=== PATIENT | male | born 1970 | race Caucasian/White ===

== ENCOUNTER → 2016-08-11 | Outpatient (CLI) | payer BC, OTHER ==
[~2016-08-11] MED LIST: /VERA40TA PO; ASPI81TA83 PO; BUMEX PO; CIPR500T19 OR; CLIN300C OR; DULCOLAX PR; KLOR8TAB PO; MAGN500T2 OR; OMEP20TA7 PO; SENO8.6T5 OR; VICO5TAB OR
[2016-08-11 09:24] LABS: MEAN CORPUSCULAR HEMOGLOBIN 32.6 pg (27.0-33.0); MEAN CORPUSCULAR HGB CONC 33.4 g/dl (32.0-36.5); MEAN CORPUSCULAR VOLUME 97.7 fl (80.0-96.0); RED CELL DISTRIBUTION WIDTH 13.4 % (11.5-14.5); WHITE BLOOD COUNT 7.4 K/mm3 (4.0-10.0)
[2016-08-11 10:09] LABS: ALBUMIN 3.2 GM/DL (3.2-5.2); ALBUMIN/GLOBULIN RATIO 0.65 (1.00-1.93); ALKALINE PHOSPHATASE 86 U/L (45-117); ALT/SGPT 27 U/L (12-78); ANION GAP 6 MEQ/L (8-16); AST/SGOT 23 U/L (15-37); BILIRUBIN,TOTAL 0.5 MG/DL (0.2-1.0); BLOOD UREA NITROGEN 9 MG/DL (7-18); CALCIUM LEVEL 8.9 MG/DL (8.5-10.1); CARBON DIOXIDE LEVEL 31 MEQ/L (21-32); CHLORIDE LEVEL 105 MEQ/L (98-107); CHOLESTEROL LEVEL 195 MG/DL (<200); CREATININE FOR GFR 0.98 MG/DL (0.70-1.30); GLOMERULAR FILTRATION RATE > 60.0 (>60); GLUCOSE, FASTING 98 MG/DL (70-105); POTASSIUM SERUM 4.4 MEQ/L (3.5-5.1); SODIUM LEVEL 142 MEQ/L (136-145); TOTAL PROTEIN 8.1 GM/DL (6.4-8.2); TRIGLYCERIDES LEVEL 90 MG/DL (<150)
== END ==
LOC: M LAB 08:56
PROVIDERS: ATTEND Family Medicine
DX: I10 Essential (primary) hypertension (principal); R53.83 Other fatigue; N52.9 Male erectile dysfunction, unspecified

== ENCOUNTER → 2017-01-12 | Outpatient (CLI) | payer BC, OTHER ==
[2017-01-12 11:51] LABS: MEAN CORPUSCULAR HGB CONC 34.4 g/dl (32.0-36.5); RED CELL DISTRIBUTION WIDTH 14.3 % (11.5-14.5); WHITE BLOOD COUNT 6.5 K/mm3 (4.0-10.0)
--- NOTE | 2017-01-12 11:57 | REP ---
Clinical: Hypertension . Comparison: 02/06/2014 . Technique: PA and lateral. Findings: The mediastinum and cardiac silhouette are normal. The lung saxena are clear and without acute consolidation, effusion, or pneumothorax. The skeletal structures are intact and normal. Impression: 1. No acute cardiopulmonary process. Signed by Jorge Linn MD 01/12/2017 11:49 A
[2017-01-12 12:31] LABS: ALBUMIN 3.1 GM/DL (3.2-5.2); ALBUMIN/GLOBULIN RATIO 0.61 (1.00-1.93); ALKALINE PHOSPHATASE 82 U/L (45-117); ALT/SGPT 25 U/L (12-78); ANION GAP 7 MEQ/L (8-16); AST/SGOT 19 U/L (15-37); BILIRUBIN,TOTAL 0.3 MG/DL (0.2-1.0); BLOOD UREA NITROGEN 13 MG/DL (7-18); CALCIUM LEVEL 8.9 MG/DL (8.5-10.1); CARBON DIOXIDE LEVEL 31 MEQ/L (21-32); CHLORIDE LEVEL 105 MEQ/L (98-107); CHOLESTEROL LEVEL 185 MG/DL (<200); CREATININE FOR GFR 1.01 MG/DL (0.70-1.30); GLOMERULAR FILTRATION RATE > 60.0 (>60); GLUCOSE, FASTING 93 MG/DL (70-105); POTASSIUM SERUM 4.4 MEQ/L (3.5-5.1); SODIUM LEVEL 143 MEQ/L (136-145); TOTAL PROTEIN 8.2 GM/DL (6.4-8.2); TRIGLYCERIDES LEVEL 69 MG/DL (<150)
--- NOTE | 2017-01-12 15:11 | ECGEPIP ---
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
== END ==
LOC: M LAB 11:08
PROVIDERS: ATTEND Family Medicine
DX: R53.83 Other fatigue (principal); I10 Essential (primary) hypertension; N40.1 Benign prostatic hyperplasia with lower urinary tract symptoms

== ENCOUNTER 2018-07-29 00:01 | Emergency (ER) | payer BC, OTHER ==
[~2018-07-29] VITALS: Ht 180.3 cm; Wt 204.6 kg
[2018-07-29] MEDS ORDERED: TETRACAINE 0.5% OPHTH SOLN 4ML OD ONE (01:00)
[2018-07-29] MEDS ORDERED: TROPICAMIDE 0.5% OPHTH SOLN 15 ML OD ONE (01:00)
[2018-07-29 02:42] VITALS: BP 149/75
--- NOTE | 2018-07-29 03:07 | REPVR ---
EXAM: CT Head Without Contrast EXAM DATE/TIME: 07/29/18 (2:28am) CLINICAL HISTORY: 48 year old male with weakness. Vision issues. Prior surgery. Surgery date: 6+ months. Surgery type: Vasculitis. TECHNIQUE: Axial computed tomography images of the head without contrast. All CT scans at this facility use at least one of these dose optimization techniques: automated exposure control; mA and/or kV adjustment per patient size (includes targeted exams where dose is matched to clinical indication); or iterative reconstruction. COMPARISON: No relevant prior studies available FINDINGS: Brain: No acute hemorrhage. No cerebral edema. Moderate atrophy (out of proportion to the stated age of the patient). Possible old right cerebellar infarct (or other old insult). Ventricles: Normal. No ventriculomegaly. Bones/joints: No acute fracture. Previous right frontal craniotomy. Sinuses: No acute sinusitis. Mild bilateral sphenoid sinus membrane thickening. Mastoid air cells: Normal as visualized. No mastoid effusion. Soft tissues: Normal. IMPRESSION: No acute intracranial pathology is appreciated. Underlying atrophy. Previous right frontal craniotomy. Possible old right cerebellar infarct (or other old insult). Electronically signed by: Christina Joe On 07/29/2018 03:06:47 AM
[2018-07-29] MEDS ORDERED: NORCO, ANEXSIA 5/325MG TABLET (HYDROcodone/ACETAMINOPHEN) PO ONE (03:30)
--- NOTE | 2018-07-30 17:24 | ECGEPIP ---
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
[2018-07-30] MEDS ORDERED: BUME1TAB29 PO (19:25)
[2018-07-30] MEDS ORDERED: VERA40TA PO (19:25)
[2018-07-30] MEDS ORDERED: OMEP20TA PO (19:25)
[2018-07-30] MEDS ORDERED: POTA8TAB3 PO (19:25)
== END 2018-07-29 03:48 | disposition home or self-care (01) ==
LOC: M ED 00:01 → EDBD 00:01 → M ED 03:48
DX: R51 Headache (principal); Z79.899 Other long term (current) drug therapy

== ENCOUNTER 2018-07-30 12:39 | Inpatient (IN) | payer BC, OTHER ==
[~2018-07-30] VITALS: Ht 180.3 cm; Wt 195.6 kg
[2018-07-30 14:38] LABS: BASO % 0.3 % (0.0-1.0); EOS # 0.1 10^3/uL (0.0-0.50); HEMOGLOBIN 18.1 g/dl (13.5-17.5); LYMPH # 2.6 10^3/uL (1.5-4.5); LYMPH % 23.6 % (24.0-44.0); MEAN CORPUSCULAR HEMOGLOBIN 32.3 pg (27.0-33.0); MEAN CORPUSCULAR HGB CONC 33.5 g/dl (32.0-36.5); MEAN CORPUSCULAR VOLUME 96.3 fl (80.0-96.0); MONO # 1.1 10^3/uL (0.0-0.8); NEUTROPHILS % 64.7 % (36.0-66.0); PLATELET COUNT, AUTOMATED 266 10^3/uL (150-450); RED BLOOD COUNT 5.61 10^6/uL (4.30-6.10); WHITE BLOOD COUNT 10.8 10^3/uL (4.0-10.0)
[2018-07-30 15:05] LABS: BLOOD UREA NITROGEN 11 MG/DL (7-18); CALCIUM LEVEL 9.4 MG/DL (8.5-10.1); CARBON DIOXIDE LEVEL 30 MEQ/L (21-32); CHLORIDE LEVEL 101 MEQ/L (98-107); CK-MB VALUE MASS < 1.0 NG/ML (<3.6); CPK CREATINE PHOSPHOKINASE 46 U/L (39-308); CREATININE FOR GFR 1.04 MG/DL (0.70-1.30); GLOMERULAR FILTRATION RATE > 60.0 (>60); GLUCOSE, FASTING 95 MG/DL (70-100); MB/CK RELATIVE INDEX 2.17 (< OR =4); POTASSIUM SERUM 4.3 MEQ/L (3.5-5.1); SODIUM LEVEL 138 MEQ/L (136-145); TROPONIN I < 0.02 NG/ML (< 0.10)
--- NOTE | 2018-07-30 17:56 | ECGEPIP ---
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
--- NOTE | 2018-07-30 18:27 | REP ---
MRA Brain without contrast History: Infarction 3-D [id number] MR angiography was performed at the level of the [place]. There is no aneurysm or arteriovenous malformation. There is loss of the normal hyperintense signal in the proximal P1 segment of the left posterior cerebral artery. This is consistent with severe stenosis or occlusion. Mild atherosclerotic disease involves the right middle cerebral artery trifurcation, right posterior cerebral artery and the distal left vertebral artery. Remaining major intracranial vessels are patent. The right vertebral artery is dominant. Impression: 1. There is no aneurysm or arteriovenous malformation. 2. Atherosclerotic disease as described above. There is loss of the normal hyperintense signal in the P1 segment of the left posterior cerebral artery consistent with severe stenosis or occlusion. Electronically Signed by Lemuel Juarez MD 07/30/2018 06:17 P
--- NOTE | 2018-07-30 18:43 | REP ---
MR BRAIN WITHOUT CONTRAST: HISTORY: Infarction. COMPARISON: CT 07/29/2018 Increased signal intensity on diffusion and T2-weighted images is present in the inferomedial left temporal lobe, left occipital and posteromedial left parietal lobe. Increased signal intensity on diffusion and T2-weighted images is present in the left thalamus. These areas are decreased in signal intensity on ADC images and are consistent with acute infarctions. There is no hemorrhage. There is mass effect with partial effacement of the posterior body, atrium and occipital horn of the left lateral ventricle. There is no midline shift. An area of increased signal intensity on T2-weighted images is present in the inferior right cerebellum. There is dilatation of the overlying cortical sulci. This represents an old infarction. Areas of increased signal intensity on T2-weighted images are present in the basal ganglia and left cerebellum. These represent old lacunar infarctions. Areas of increased signal intensity on T2-weighted images are present in the periventricular and subcortical white matter. This represents small vessel ischemic disease. There is no hydrocephalus or extracerebral collection. Mucosal thickening is present in the left maxillary sinus. IMPRESSION: 1. Acute infarction in the distribution of the left posterior cerebral artery. There is no hemorrhage or midline shift. 2. Old right cerebellar infarction. 3. Old left basal ganglia and left cerebellar lacunar infarctions. 4. Small vessel ischemic disease. Electronically Signed by Lemuel Juarez MD 07/30/2018 06:49 P
[2018-07-30] MEDS ORDERED: CLOPIDOGREL 75 MG TAB PO ONE (19:15)
[2018-07-30] MEDS ORDERED: VERA40TA PO (19:25)
[2018-07-30] MEDS ORDERED: BUME1TAB29 PO (19:25)
[2018-07-30] MEDS ORDERED: OMEP20TA PO (19:25)
[2018-07-30] MEDS ORDERED: POTA8TAB3 PO (19:25)
[2018-07-30] MEDS ORDERED: ACETAMINOPHEN TAB 650MG DOSE (2X325MG) PO PRN (19:45)
[2018-07-30] MEDS ORDERED: ONDANSETRON 4MG/2ML VIAL (J2405) IV PRN (19:45)
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
[2018-07-30 22:00] VITALS: BP 140/92
[2018-07-30] MEDS: VERAPAMIL 40 MG TAB PO SCH (22:19)
[2018-07-30] MEDS: POTASSIUM CHLORIDE 10 MEQ SR TABLET PO SCH (22:20)
[2018-07-31] VITALS: BP 127/86
[2018-07-31 04:00] VITALS: BP 111/78
[2018-07-31 05:29] LABS: HEMATOCRIT 48.5 % (42.0-52.0); HEMOGLOBIN 16.6 g/dl (13.5-17.5); MEAN CORPUSCULAR HEMOGLOBIN 31.7 pg (27.0-33.0); MEAN CORPUSCULAR HGB CONC 34.2 g/dl (32.0-36.5); MEAN CORPUSCULAR VOLUME 92.7 fl (80.0-96.0); PLATELET COUNT, AUTOMATED 250 10^3/uL (150-450); RED BLOOD COUNT 5.23 10^6/uL (4.30-6.10); WHITE BLOOD COUNT 10.4 10^3/uL (4.0-10.0)
[2018-07-31 07:23] LABS: BLOOD UREA NITROGEN 12 MG/DL (7-18); CALCIUM LEVEL 9.2 MG/DL (8.5-10.1); CARBON DIOXIDE LEVEL 25 MEQ/L (21-32); CHLORIDE LEVEL 100 MEQ/L (98-107); CHOLESTEROL LEVEL 169 MG/DL (<200); CHOLESTEROL RISK RATIO 4.447 (<5); CREATININE FOR GFR 0.98 MG/DL (0.70-1.30); GLOMERULAR FILTRATION RATE > 60.0 (>60); GLUCOSE, FASTING 93 MG/DL (70-100); HDL CHOLESTEROL 38 MG/DL (>40); LDL CHOLESTEROL 111 MG/DL (<100); NON-HDL-C 131 MG/DL; POTASSIUM SERUM 4.3 MEQ/L (3.5-5.1); SODIUM LEVEL 136 MEQ/L (136-145); TRIGLYCERIDES LEVEL 100 MG/DL (<150)
--- NOTE | 2018-07-31 07:46 | REP ---
Clinical: Transient ischemic attack . Technique: Brown scale and color Doppler evaluation using linear high frequency transducer Findings: Two-dimensional brown scale and color images demonstrate normal arterial lumen with laminar flow and no appreciable narrowing. Color Doppler interrogation demonstrates normal arterial wave patterns and velocities with no significant spectral broadening. Normal flow direction is appreciated in the left vertebral artery while the right vertebral artery is not visualized. RIGHT (cm/s) LEFT (cm/s) ICA peak systolic velocity 75.7 56.2 ICA diastolic velocity 27.1 19.6 ECA peak systolic velocity 80.6 67.6 CCA peak systolic velocity 60.8 92.0 ICA/CCA ratio 1.2 0.6 Impression: 1. No hemodynamically significant areas of narrowing or stenosis appreciated. Based on set standards narrowing falls within the less than 50% range. 2. Right vertebral artery not visualized. Electronically Signed by Jorge Linn MD 07/31/2018 07:38 A
[2018-07-31 08:00] VITALS: BP 180/62
[2018-07-31] MEDS ORDERED: ISOVUE-370 76% 100ML VIAL (Q9967) As Ordered ONE (08:05)
[2018-07-31 08:42] LABS: INR 1.08; PROTHROMBIN TIME 14.1 SECONDS (12.1-14.4)
[2018-07-31 08:43] LABS: PARTIAL THROMBOPLASTIN TIME 30.7 SECONDS (25.4-37.6)
[2018-07-31 08:56] LABS: ALBUMIN 2.9 GM/DL (3.2-5.2); ALT/SGPT 21 U/L (12-78); BILIRUBIN,DIRECT 0.2 MG/DL (0.0-0.2); TOTAL PROTEIN 7.9 GM/DL (6.4-8.2)
--- NOTE | 2018-07-31 09:17 | IPNPDOC ---
Date Seen The patient was seen on 07/31/18. Progress Note SUBJECTIVE: Patient is a 48-year-old male who was seen and examined this morning. Patient was a little bit short of breath just came back from a CTA head and neck. He states that he is feeling relatively well except he does continue to have the vision loss in his lateral aspect of his right eye the medial aspect of his left eye. He is very tearful during my exam for he states it is only in the hospital. He has no other complaints at this time. Would just like to be updated and all his medical problems. Denies any chest pain shortness of breath nausea vomiting diarrhea. States his sensory loss in his right side has improved present. OBJECTIVE PHYSICAL EXAMINATION: VITAL SIGNS: Please see below. GENERAL: Morbidly obese middle aged man, lying calmly in bed, not in any apparent distress. He is not pale, anicteric and afebrile HEENT: Atraumatic. Very poor dentition, LUNGS: Clear to auscultation bilaterally. CARDIOVASCULAR: S1 and 2 heard, tachycardic rhythm. Telemetry reads atrial fl utter with a heart rate 120s. ABDOMEN: Morbidly Obese, soft, not tender, not distended. Bowel sounds normoactive. EXTREMITIES: No pedal edema, 2+ bilateral pedal pulses noted. Chronic venous stasis changes bilaterally NEUROLOGICAL: Awake, alert, oriented 3. Visual field defect: Left eye loss in the nasal side and right eye vision loss on the temporal side. Left pupil round and reactive to light appropriately. Right pupil reacts to light but briskly dilates. No observable motor deficiency. PSYCHIATRIC: Normal affect LABORATORY DATA, IMAGING STUDIES, MICROBIOLOGY: Please see below. Echocardiogram: Pending DVT prophylaxis ordered?: Yes teds and sequentials ASSESSMENT AND PLAN: Patient is a 48-year-old man, morbid obesity with medical history of hypertension, reflux disease, transient ischemic attack, cerebellar infarct and questionable brain biopsy for vasculitis presented with visual problems for 3 days and was admitted for Acute infarction in the distribution of the left posterior cerebral artery. PROBLEMS: 1. Acute infarction in the distribution of the left posterior cerebral artery -CT of the brain without contrast negative for acute intracranial pathology -MRI: Acute infarction in the distribution of the left posterior cerebral artery and 3 old infarcts in the right and left cerebellar and left basal ganglia. -MRA of the brain without contrast: Severe stenosis of the left posterior cerebral artery at the P1 segment -Neurology consulted -Echocardiogram completed report pending -CT angios head and neck currently pending for vascular ultrasound could not visualize the right vertebral artery -CV risk 8.1% - start Lipitor 40 mg -Restarted antiplatelets: Plavix 75 mg. 2. A Flutter -new onset? -Echocardiogram completed report pending -Discontinue verapamil and start metoprolol 25 mg every 6 hours.. -Currently not on any anticoagulation therapy because of acute stroke -On telemetry -atrial flutter versus sinus tachycardia? -Cardiology consulted appreciate recommendations to manage patient's underlying arrhythmia and anticoagulation therapy -[id number] - 4 points. Hypertension, stroke and vascular disease. Recommendation is to be placed on anticoagulation. 3. Hypertension -BS stopped his verapamil and started him on metoprolol 25 mg we'll continue to monitor -hold Bumex 2 mg as well as potassium chloride 4. Prediabetes A1c 6.0 Currently not on any oral hypoglycemic medication Because of the patient's history of hypertension, abnormal lipids, strokes obesity he is at high risk for metabolic syndrome. He would benefit from a oral hypoglycemic such as metformin 500 mg to prevent advancement of his diabetes. We'll also encourage healthy eating with control and increased physical activity as well. 4. Acid reflux -c/w Protonix 5. Speech therapy -Cleared for normal diet 6. Obesity -BMI 37.8 -Complicated care 7. PT Consulted 8. DVT prophylaxis Teds and sequentials, peak 9. CODE STATUS: Full code Disposition awaiting recommendation per neurology and cardiology about restarting anticoagulation therapy,as well as PT clearance VS, I&O, 24H, Fishbone Vital Signs/I&O Vital Signs Date Time Temp Pulse Resp B/P (MAP) Pulse Ox O2 Delivery O2 Flow Rate FiO2 07/31/18 04:00 97.8 107 20 111/78 (89) 94 Room Air I&O- Last 24 Hours up to 6 AM 07/31/18 06:00 Intake Total 0 ml Output Total 0 ml Balance 0 ml Laboratory Data 24H LABS Laboratory Tests 2 07/30/18 14:30: Immature Granulocyte % (Auto) 0.4, White Blood Count 10.8H, Red Blood Count 5.61, Hemoglobin 18.1H, Hematocrit 54.0H, Mean Corpuscular Volume 96.3H, Mean Corpuscular Hemoglobin 32.3, Mean Corpuscular Hemoglobin Concent 33.5, Red Cell Distribution Width 14.7H, Platelet Count 266, Neutrophils (%) (Auto) 64.7, Lymphocytes (%) (Auto) 23.6L, Monocytes (%) (Auto) 10.0H, Eosinophils (%) (Auto) 1.0, Basophils (%) (Auto) 0.3, Neutrophils # (Auto) 7.0, Lymphocytes # (Auto) 2.6, Monocytes # (Auto) 1.1H, Eosinophils # (Auto) 0.1, Basophils # (Auto) 0.0, Nucleated Red Blood Cells % (auto) 0.0, Anion Gap 7L, Glomerular Filtration Rate > 60.0, Blood Urea Nitrogen 11, Creatinine 1.04, Sodium Level 138, Potassium Level 4.3, Chloride Level 101, Carbon Dioxide Level 30, Calcium Level 9.4, Total Creatine Kinase 46, Creatine Kinase MB < 1.0, Creatine Kinase MB Relative Index 2.17, Troponin I < 0.02 07/31/18 05:18: Nucleated Red Blood Cells % (auto) 0.0, Estimated Mean Plasma Glucose 126H, Hemoglobin A1c 6.0 07/31/18 06:39: Anion Gap 11, Glomerular Filtration Rate > 60.0, Calcium Level 9.2, Triglycerides Level 100, LDL Cholesterol 111H, Total Cholesterol 169, Non-HDL Cholesterol (LDL + VLDL) 131, Total HDL Cholesterol 38L, Cholesterol/HDL Ratio 4.447 CBC/BMP Laboratory Tests 07/30/18 14:30 Red Blood Count 5.61, Mean Corpuscular Volume 96.3 H, Mean Corpuscular Hemoglobin 32.3, Mean Corpuscular Hemoglobin Concent 33.5, Red Cell Distribution Width 14.7 H, Neutrophils (%) (Auto) 64.7, Lymphocytes (%) (Auto) 23.6 L, Monocytes (%) (Auto) 10.0 H, Eosinophils (%) (Auto) 1.0, Basophils (%) (Auto) 0.3, Neutrophils # (Auto) 7.0, Lymphocytes # (Auto) 2.6, Monocytes # (Auto) 1.1 H, Eosinophils # (Auto) 0.1, Basophils # (Auto) 0.0, Calcium Level 9.4, Total C reatine Kinase 46 07/31/18 05:18 Red Blood Count 5.23, Mean Corpuscular Volume 92.7, Mean Corpuscular Hemoglobin 31.7, Mean Corpuscular Hemoglobin Concent 34.2, Red Cell Distribution Width 14.7 H 07/31/18 06:39 GME ATTESTATION GME ATTESTATION My faculty preceptor for this patient encounter was physically present during the encounter and was fully available. All aspects of the patient interview, examination, medical decision making process, and medical care plan development were reviewed and approved by the faculty preceptor. The faculty preceptor is aware and concurs with the plan as stated in the body of this note and will attest to such by his/her cosignature. RODRIGUEZ OLVERA DO Jul 31, 2018 09:17 MIGUEL PARDO MD Aug 17, 2018 14:00
--- NOTE | 2018-07-31 09:33 | NUR ---
Pt swallow function appears wnl w/o s/sx aspiration or penetration. Recommend regular solids and thin liquids. Please f/u w/ WATCH SUPERVISOR w/ any concerns. Addendum: 07/31/18 at 0935 by JEANETH BRINK [facility] Amended: Links added.
[2018-07-31] MEDS: VERAPAMIL 40 MG TAB PO SCH (09:57)
[2018-07-31] MEDS: PANTOPRAZOLE 40MG TAB (PROTONIX) PO SCH (10:03)
[2018-07-31] MEDS: POTASSIUM CHLORIDE 10 MEQ SR TABLET PO SCH (10:04)
[2018-07-31] MEDS: CLOPIDOGREL 75 MG TAB PO SCH (10:04)
--- NOTE | 2018-07-31 10:26 | REP ---
CT ANGIO HEAD: HISTORY: Infarction. CONTRAST: Isovue 370, 75 mL. COMPARISON: MRA 07/30/2018 There is no aneurysm or arteriovenous malformation. There is occlusion of the distal P1 segment of the left posterior cerebral artery. Calcified atherosclerotic plaque is present in the cavernous right internal carotid artery. There is no significant stenosis. Mild atherosclerotic disease involves the right middle cerebral artery trifurcation and distal left vertebral artery. Atherosclerotic disease involving the right posterior cerebral artery seen in the MRA examination is not seen in the present examination. The remaining intracranial vessels are patent. IMPRESSION: 1. There is no aneurysm or arteriovenous malformation. 2. There is occlusion of the distal P1 segment of the left posterior cerebral artery. 3. Other areas of atherosclerotic disease as described above are better seen on MRA performed 07/30/2018. Electronically Signed by Lemuel Juarez MD 07/31/2018 10:28 A
[2018-07-31] MEDS: METOPROLOL TART 25 MG TABLET PO SCH ×2 (10:47→17:26)
--- NOTE | 2018-07-31 11:28 | REP ---
Chest two views HISTORY: Shortness of breath Comparison: 04/24/2018 The lungs are clear. The heart is normal in size. The pulmonary vasculature is normal in appearance. The bony structure is intact. IMPRESSION: No acute disease. Electronically Signed by Lemuel Juarez MD 07/31/2018 11:19 A
[2018-07-31 12:00] VITALS: BP 138/64
[2018-07-31] MEDS: ATORVASTATIN 20 MG TAB PO SCH (12:45)
--- NOTE | 2018-07-31 13:28 | ECHO ---
DATE OF STUDY: 07/31/2018 REFERRING PHYSICIAN: Jael Ruano MD INDICATION: Acute stroke. HEIGHT: 180 cm. WEIGHT: 205 kg. 2D MEASUREMENTS: Aortic root: 3.2 cm Left atrium: 3.9 cm Ventricular septum: 1.29 cm Posterior wall: 1.21 cm Left ventricle diastole: 5.8 cm Aortic anulus: 2.2 cm Left atrial volume index: 25 Inferior vena cava: 1.4 cm DOPPLER MEASUREMENTS: Aortic valve velocity: 88.4 cm/s LVOT velocity: 82.7 cm/s LVOT VTI: 15.5 cm Mitral E velocity: 130 cm/s Mitral E deceleration time: 141 ms MITRAL ANNULAR TISSUE DOPPLER: E prime septal: 9.4 cm/s E prime lateral: 10.5 cm/s DESCRIPTION: Rhythm was typical atrial flutter, mostly 2:1 AV conduction, mildly rapid ventricular response. This was a moderately technically difficult echocardiogram. No pericardial effusion. This was a 2D, M-mode, color flow Doppler, and pulse wave Doppler examination and included mitral annular tissue Doppler. CONCLUSIONS: 1. Mild eccentric left ventricle hypertrophy. Normal regional left ventricle (LV) wall motion and wall thickening. Normal LV systolic function. Left ventricular ejection fraction (LVEF) 60% by visual estimate. Unable to determine LV diastolic function in the setting of atrial flutter. 2. Normal right ventricle size. Mild right ventricle hypertrophy. Normal right ventricle (RV) systolic function. Normal right atrial size. 3. Unable to assess pulmonary free systolic pressure or estimated RV systolic pressure on this study. 4. Structurally normal-appearing cardiac valves without observable regurgitation by color-flow Doppler. 5. Moderately technically difficult echocardiogram.
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
[2018-07-31 16:00] VITALS: BP 120/62
--- NOTE | 2018-07-31 17:57 | REP ---
CT ANGIO NECK: HISTORY: Infarction. CONTRAST: Isovue-370, 75 mL The distal common carotid arteries and origins of the external and internal carotid arteries are normal. There are no carotid atherosclerotic lesions. The vertebral arteries are equal in size. Mild atherosclerotic disease involves the distal left vertebral artery in the inferior posterior fossa. The origins of the great vessels are normal. IMPRESSION: 1. There is no carotid stenosis. 2. Mild atherosclerotic disease involves the distal left vertebral artery and the inferior posterior fossa. Electronically Signed by Lemuel Juarez MD 08/01/2018 08:35 A
[2018-07-31 20:00] VITALS: BP 127/90
[2018-07-31] MEDS ORDERED: NYSTATIN 100,000 UNITS/GM TOPICAL PWD 15 GM TOP PRN (21:00)
[2018-08-01] VITALS (8 sets, daily range): BP systolic 118–158; BP diastolic 70–88
[2018-08-01] MEDS: METOPROLOL TART 25 MG TABLET PO SCH ×4 (00:42→21:32)
[2018-08-01] MEDS ORDERED: LEVALBUTEROL 1.25 MG/0.5 ML CONCENTRATE NEB NEB ONE (05:15)
[2018-08-01] MEDS ORDERED: METOPROLOL TART 25 MG TABLET PO ONE (08:45)
--- NOTE | 2018-08-01 08:50 | IPNPDOC ---
Date Seen The patient was seen on 08/01/18. Progress Note SUBJECTIVE: Patient is a 48-year-old male who was seen and examined this morning. Cardiology saw the patient last night patient was in a flutter recomme nds continue metoprolol and starting the patient on anticoagulation and stopping antiplatelet therapy. Since the patient has been here he is only eaten breakfast the day before. His refused to eat lunch and dinner and breakfast this morning. Will try to encourage him to have a meal. Reviewed plan for the day. Very sad affect for the patient does not want to the hospital. He denies any shortness of breath trouble breathing palpitations nausea vomiting diarrhea. He has no other complaints today. Vision loss has not improved. OBJECTIVE PHYSICAL EXAMINATION: VITAL SIGNS: Please see below. GENERAL: Morbidly obese middle aged man, lying calmly in bed, not in any apparent distress. He is not pale, anicteric and afebrile HEENT: Atraumatic. Very poor dentition, LUNGS: Clear to auscultation bilaterally. CARDIOVASCULAR: S1 and 2 heard, tachycardic rhythm. Telemetry reads atrial flutter with a heart rate 120s. ABDOMEN: Morbidly Obese, soft, not tender, not distended. Bowel sounds normoactive. EXTREMITIES: No pedal edema, 2+ bilateral pedal pulses noted. Chronic venous stasis changes bilaterally NEUROLOGICAL: Awake, alert, oriented 3. Visual field defect: Left eye loss in the nasal side and right eye vision loss on the temporal side. Left pupil round and reactive to light appropriately. Right pupil reacts to light a little but briskly dilates again. No observable motor deficiency. PSYCHIATRIC: Depressed affect LABORATORY DATA, IMAGING STUDIES, MICROBIOLOGY: Please see below. Echocardiogram: CONCLUSIONS: Rhythm was typical atrial flutter, mostly 2:1 AV conduction, mildly rapid ventricular response. 1. Mild eccentric left ventricle hypertrophy. Normal regional left ventricle (LV) wall motion and wall thickening. Normal LV systolic function. Left ventricular ejection fraction (LVEF) 60% by visual estimate. Unable to determine LV diastolic function in the setting of atrial flutter. 2. Normal right ventricle size. Mild right ventricle hypertrophy. Normal right ventricle (RV) systolic function. Normal right atrial size. 3. Unable to assess pulmonary free systolic pressure or estimated RV systolic pressure on this study. 4. Structurally normal-appearing cardiac valves without observable regurgitation by color-flow Doppler. 5. Moderately technically difficult echocardiogram. DVT prophylaxis ordered?: Yes teds and sequentials ASSESSMENT AND PLAN: Patient is a 48-year-old man, morbid obesity with medical history of hypertension, reflux disease, transient ischemic attack, cerebellar infarct and questionable brain biopsy for vasculitis presented with visual problems for 3 days and was admitted for Acute infarction in the distribution of the left posterior cerebral artery. PROBLEMS: 1. Acute infarction in the distribution of the left posterior cerebral artery -CT of the brain without contrast negative for acute intracranial pathology -MRI: Acute infarction in the distribution of the left posterior cerebral artery and 3 old infarcts in the right and left cerebellar and left basal ganglia. -MRA of the brain without contrast: Severe stenosis of the left posterior cerebral artery at the P1 segment -Neurology consulted -Echocardiogram completed report pending -CT angios head and neck currently pending for vascular ultrasound could not visualize the right vertebral artery -CV risk 8.1% - start Lipitor 40 mg -Stopped Plavix started Eliquis 2.5 mg 2. A Flutter -new onset? Duration unknown -Echocardiogram :atrial flutter, mostly 2:1 AV conduction, mildly rapid ventricular response. see above for conclusions -increase metoprolol 50 mg mg every 8 hours.. -Currently not on any anticoagulation therapy because of acute stroke -On telemetry -atrial flutter versus sinus tachycardia? -Cardiology consulted appreciate recommendations to manage patient's underlying arrhythmia and anticoagulation therapy- Eliquis orders or alto he cannot afford those, then warfarin INR of 2-3.0 -[id number] - 4 points. Hypertension, stroke and vascular disease. Recommendation is to be placed on anticoagulation. -Stopped Plavix started Eliquis 2.5 mg twice a day x1 repeat CT head in the morning if no rebleeds will continue with Eliquis 5 mg twice a day 3. Hypertension -metoprolol 50 mg we'll continue to monitor -hold Bumex 2 mg as well as potassium chloride - possibly can be discontinued upon discharge will need to monitor 4. Prediabetes A1c 6.0 Currently not on any oral hypoglycemic medication Because of the patient's history of hypertension, abnormal lipids, strokes obesity he is at high risk for metabolic syndrome. He would benefit from a oral hypoglycemic such as metformin 500 mg to prevent advancement of his diabetes. We'll also encourage healthy eating with control and increased physical activity as well. 4. Acid reflux -c/w Protonix 5. Speech therapy -Cleared for normal diet 6. Obesity -BMI 37.8 -Complicated care -[facility] protocol 7. PT Consulted 8. DVT prophylaxis Teds and sequentials, peak 9. CODE STATUS: Full code 10. Tobacco abuse -History of 1 pack a day for many years unable to quantify -Offer nicotine patch but refused -Discussed the risk of smoking and advised the need to quit smoking 11. PFS -Consult placed for prior authorization for Eliquis 5 mg twice a day Disposition: Stopped Plavix started Eliquis 2.5 mg twice a day x1 repeat CT head in the morning if no rebleeds will continue with Eliquis 5 mg twice a day, increase metoprolol 50 mg mg every 8 hours per neurology recommendations. VS, I&O, 24H, Fishbone Vital Signs/I&O Vital Signs Date Time Temp Pulse Resp B/P (MAP) Pulse Ox O2 Delivery O2 Flow Rate FiO2 08/01/18 05:41 112 158/84 08/01/18 04:30 97.3 20 98 Room Air I&O- Last 24 Hours up to 6 AM 08/01/18 06:00 Intake Total 600 ml Output Total 1575 ml Balance -975 ml Laboratory Data Microbiology Microbiology 07/31/18 Respiratory Virus Panel (PCR) ([facility]) - Final, Complete GME ATTESTATION GME ATTESTATION My faculty preceptor for this patient encounter was physically present during the encounter and was fully available. All aspects of the patient interview, examination, medical decision making process, and medical care plan development were reviewed and approved by the faculty preceptor. The faculty preceptor is aware and concurs with the plan as stated in the body of this note and will attest to such by his/her cosignature. RODRIGUEZ OLVERA DO Aug 01, 2018 08:50 MIGUEL PARDO MD Aug 17, 2018 14:02
[2018-08-01] MEDS: CLOPIDOGREL 75 MG TAB PO SCH (09:33)
[2018-08-01] MEDS: ATORVASTATIN 20 MG TAB PO SCH (09:33)
[2018-08-01] MEDS: PANTOPRAZOLE 40MG TAB (PROTONIX) PO SCH (09:33)
[2018-08-01] MEDS ORDERED: ELIQ5TAB PO (10:36)
[2018-08-01 10:58] LABS: VITAMIN B12 LEVEL > 2000 PG/ML (232-1245)
[2018-08-01] MEDS: APIXABAN 2.5 MG TAB (ELIQUIS) PO SCH ×2 (11:48→21:32)
[2018-08-02 04:00] VITALS: BP 135/88
[2018-08-02] MEDS: METOPROLOL TART 25 MG TABLET PO SCH (05:42)
--- NOTE | 2018-08-02 07:08 | IPNPDOC ---
Date Seen The patient was seen on 08/02/18. Progress Note SUBJECTIVE: Patient is a 48-year-old male who was seen and examined this morning. Patient was di OBJECTIVE PHYSICAL EXAMINATION: VITAL SIGNS: Please see below. GENERAL: Morbidly obese middle aged man, lying calmly in bed, not in any apparen t distress. He is not pale, anicteric and afebrile HEENT: Atraumatic. Very poor dentition, LUNGS: Clear to auscultation bilaterally. CARDIOVASCULAR: S1 and 2 heard, tachycardic rhythm. Telemetry reads atrial flutter with a heart rate 120s. ABDOMEN: Morbidly Obese, soft, not tender, not distended. Bowel sounds normoactive. EXTREMITIES: No pedal edema, 2+ bilateral pedal pulses noted. Chronic venous stasis changes bilaterally NEUROLOGICAL: Awake, alert, oriented 3. Unclear sensory loss pattern, visual field defect: Left eye loss in the nasal side and right eye vision loss on the temporal side. Left pupil round and reactive to light appropriately. Right pupil reacts to light a little but briskly dilates again. No observable motor defi ciency. PSYCHIATRIC: Depressed affect LABORATORY DATA, IMAGING STUDIES, MICROBIOLOGY: Please see below. Echocardiogram: CONCLUSIONS: Rhythm was typical atrial flutter, mostly 2:1 AV conduction, mildly rapid ventricular response. 1. Mild eccentric left ventricle hypertrophy. Normal regional left ventricle (LV) wall motion and wall thickening. Normal LV systolic function. Left ventricular ejection fraction (LVEF) 60% by visual estimate. Unable to dete rmine LV diastolic function in the setting of atrial flutter. 2. Normal right ventricle size. Mild right ventricle hypertrophy. Normal right ventricle (RV) systolic function. Normal right atrial size. 3. Unable to assess pulmonary free systolic pressure or estimated RV systolic pressure on this study. 4. Structurally normal-appearing cardiac valves without observable re gurgitation by color-flow Doppler. 5. Moderately technically difficult echocardiogram. DVT prophylaxis ordered?: Yes teds and sequentials ASSESSMENT AND PLAN: Patient is a 48-year-old man, morbid obesity with medical history of hypertension, reflux disease, transient ischemic attack, cerebellar infarct and questionable brain biopsy for vasculitis presented with visual problems for 3 days and was admitted for Acute infarction in the distribution of the left posterior cerebral artery. 1. Acute infarction in the distribution of the left posterior cerebral artery -CT of the brain without contrast negative for acute intracranial pathology -MRI: Acute infarction in the distribution of the left posterior cerebral artery and 3 old infarcts in the right and left cerebellar and left basal ganglia. -MRA of the brain without contrast: Severe stenosis of the left posterior cerebral artery at the P1 segment -Neurology consulted -Echocardiogram completed report pending -CT angios head and neck currently pending for vascular ultrasound could not visualize the right vertebral artery -CV risk 8.1% - start Lipitor 40 mg -Stopped Plavix started Eliquis 2.5 mg 2. A Flutter -new onset? Duration unknown -Echocardiogram :atrial flutter, mostly 2:1 AV conduction, mildly rapid ventricular response. see above for conclusions -increase metoprolol 100mg BID. -Currently not on any anticoagulation therapy because of acute stroke -On telemetry -atrial flutter versus sinus tachycardia? -Cardiology consulted appreciate recommendations to manage patient's underlying arrhythmia and anticoagulation therapy- Eliquis orders or alto he cannot afford those, then warfarin INR of 2-3.0 -[id number] - 4 points. Hypertension, stroke and vascular disease. Recommendation is to be placed on anticoagulation. -Stopped Plavix started Eliquis 2.5 mg twice a day x1 repeat CT head in the morning if no rebleeds will continue with Eliquis 5 mg twice a day 3. Hypertension -metoprolol 50 mg we'll continue to monitor -hold Bumex 2 mg as well as potassium chloride - possibly can be discontinued upon discharge will need to monitor 4. Prediabetes A1c 6.0 Currently not on any oral hypoglycemic medication Because of the patient's history of hypertension, abnormal lipids, strokes obesity he is at high risk for metabolic syndrome. He would benefit from a oral hypoglycemic such as metformin 500 mg to prevent advancement of his diabetes. We'll also encourage healthy eating with control and increased physical activity as well. 4. Acid reflux -c/w Protonix 5. Speech therapy -Cleared for normal diet 6. Obesity -BMI 37.8 -Complicated care -[facility] protocol 7. PT Consulted 8. DVT prophylaxis Teds and sequentials, peak 9. CODE STATUS: Full code 10. Tobacco abuse -History of 1 pack a day for many years unable to quantify -Offer nicotine patch but refused -Discussed the risk of smoking and advised the need to quit smoking 11. PFS -Consult placed for prior authorization for Eliquis 5 mg twice a day Disposition: Stopped Plavix started Eliquis 2.5 mg twice a day x1 repeat CT head in the morning if no rebleeds will continue with Eliquis 5 mg twice a day, increase metoprolol 50 mg mg every 8 hours VS, I&O, 24H, Fishbone Vital Signs/I&O Vital Signs Date Time Temp Pulse Resp B/P (MAP) Pulse Ox O2 Delivery O2 Flow Rate FiO2 08/02/18 05:42 109 135/88 08/02/18 04:00 97.0 20 99 Room Air I&O- Last 24 Hours up to 6 AM 08/02/18 06:00 Intake Total 1440 ml Output Total 0 ml Balance 1440 ml Laboratory Data Microbiology Microbiology 07/31/18 Respiratory Virus Panel (PCR) ([facility]) - Final, Complete GME ATTESTATION GME ATTESTATION My faculty preceptor for this patient encounter was physically present during the encounter and was fully available. All aspects of the patient interview, examination, medical decision making process, and medical care plan development were reviewed and approved by the faculty preceptor. The faculty preceptor is aware and concurs with the plan as stated in the body of this note and will attest to such by his/her cosignature. RODRIGUEZ OLVERA DO Aug 02, 2018 07:08
[2018-08-02 08:00] VITALS: BP 128/80
[2018-08-02 08:42] LABS: BASO # 0.1 10^3/uL (0.0-0.2); BASO % 0.6 % (0.0-1.0); EOS # 0.3 10^3/uL (0.0-0.50); EOS % 3.1 % (0.0-3.0); HEMATOCRIT 47.1 % (42.0-52.0); HEMOGLOBIN 16.3 g/dl (13.5-17.5); LYMPH # 2.4 10^3/uL (1.5-4.5); LYMPH % 23.4 % (24.0-44.0); MEAN CORPUSCULAR HEMOGLOBIN 32.3 pg (27.0-33.0); MEAN CORPUSCULAR HGB CONC 34.6 g/dl (32.0-36.5); MEAN CORPUSCULAR VOLUME 93.3 fl (80.0-96.0); MONO # 1.4 10^3/uL (0.0-0.8); MONO % 13.3 % (0.0-5.0); NEUTROPHILS # 6.2 10^3/uL (1.8-7.7); NEUTROPHILS % 59.3 % (36.0-66.0); PLATELET COUNT, AUTOMATED 240 10^3/uL (150-450); RED BLOOD COUNT 5.05 10^6/uL (4.30-6.10); WHITE BLOOD COUNT 10.4 10^3/uL (4.0-10.0)
[2018-08-02 09:05] LABS: BLOOD UREA NITROGEN 19 MG/DL (7-18); CALCIUM LEVEL 8.7 MG/DL (8.5-10.1); CARBON DIOXIDE LEVEL 30 MEQ/L (21-32); CHLORIDE LEVEL 103 MEQ/L (98-107); GLOMERULAR FILTRATION RATE > 60.0 (>60); GLUCOSE, FASTING 85 MG/DL (70-100); POTASSIUM SERUM 3.9 MEQ/L (3.5-5.1); SODIUM LEVEL 139 MEQ/L (136-145)
[2018-08-02] MEDS ORDERED: METOPROLOL TART 50 MG TAB PO ONE (09:15)
--- NOTE | 2018-08-02 09:15 | REP ---
Clinical: Acute infarction. Evaluate for hemorrhage. Technique: Axial noncontrast images from the skull base to the vertex. Comparison: 07/29/2018. Findings: Low density changes noted in the left temporal and parieto-occipital lobes consistent with left posterior cerebral artery infarction. There is no associated hemorrhagic component identified. Old right cerebellar infarction noted along with evidence for prior right frontal craniotomy. No evidence for underlying mass or mass effect. No midline shift. No extra-axial collection. Impression: Large left posterior cerebral artery infarction without hemorrhagic component, mass effect or midline shift. Electronically Signed by Jorge Linn MD 08/02/2018 09:07 A
[2018-08-02] MEDS: APIXABAN 2.5 MG TAB (ELIQUIS) PO SCH (09:37)
[2018-08-02] MEDS: PANTOPRAZOLE 40MG TAB (PROTONIX) PO SCH (09:37)
[2018-08-02] MEDS: ATORVASTATIN 20 MG TAB PO SCH (09:37)
[2018-08-02 09:39] VITALS: BP 128/80
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
[2018-08-02] MEDS ORDERED: APIXABAN 2.5 MG TAB (ELIQUIS) PO ONE (10:15)
[2018-08-02 12:00] VITALS: BP 105/74
[2018-08-02] MEDS ORDERED: LOPR1TAB7 PO (13:22)
[2018-08-02] MEDS ORDERED: ATOR1TAB21 PO (13:22)
[2018-08-02] MEDS ORDERED: METF500T13 PO (13:32)
--- NOTE | 2018-08-02 13:53 | DS.PDOC ---
Discharge Summary General Date of Admission Jul 30, 2018 at 19:37 Date of Discharge August 02, 2018 Primary Care Physician: Laura Balderas Attending Physician: MIGUEL PARDO MD Specialist/Consultants Involve: CYRUS APPLE MD Specialist/Consultants Involve Cardiology: Dr. Dejan Iglesias Discharge Summary PROCEDURES PERFORMED DURING STAY: 07/31/2019 Echocardiogram CONCLUSIONS: Rhythm was typical atrial flutter, mostly 2:1 AV conduction, mildly rapid ventricular response. 1. Mild eccentric left ventricle hypertrophy. Normal regional left ventricle (LV) wall motion and wall thickening. Normal LV systolic function. Left ventricular ejection fraction (LVEF) 60% by visual estimate. Unable to determine LV diastolic function in the setting of atrial flutter. 2. Normal right ventricle size. Mild right ventricle hypertrophy. Normal right ventricle (RV) systolic function. Normal right atrial size. 3. Unable to assess pulmonary free systolic pressure or estimated RV systolic pressure on this study. 4. Structurally normal-appearing cardiac valves without observable regurgitation by color-flow Doppler. 5. Moderately technically difficult echocardiogram. ADMITTING DIAGNOSES/DISCHARGE DIAGNOSES: 1. Acute infarction in the distribution of the left posterior cerebral artery 2. A Flutter -new onset? Duration unknown 3. Hypertension 4. Prediabetes 4. Acid reflux 5. Obesity 6. Tobacco abuse COMPLICATIONS/CHIEF COMPLAINT: Homonymous Hemianopsia. HISTORY OF PRESENT ILLNESS: Patient is a 48-year-old man, morbid obesity with medical history of hypertension, reflux disease, transient ischemic attack, cerebellar infarct and questionable brain biopsy for vasculitis. Patient reports being in his usual state of health until sometime on Saturday when he started having visual problems. He describes his visual problems as not been able to see as usual with his right eye. He says he has difficulty seeing at his extreme right visual field. He also reports occasional paresthesias of his upper and lower extremity but no accompanying weakness, no paralysis of his extremities, no blurriness, and no headaches. He was seen Saturday evening into Saturday and had a CT scan of his head without contrast, which was consistent with an old infarct and possible old cerebellar infarct. Patient was discharged home, but he returns today stating that his vision has since not improved. MRI, MRA done reports acute infarct, but this was corrected and stated that likely infarct may have happened on Saturday, so patient is out of TPA window. He denies any nausea, vomiting. He is able to swallow according to him. He denies any palpitations or chest pains. No cough or shortness of breath. He denies any fever or chills. Neurology was consulted and recommendation is for him to start Plavix. Patient will also be seen by cardiology. On account of EKG reading consistent with atrial flutter, though his rate ontrol on verapamil. Hospitalist was called for further evaluation and for admission. HOSPITAL COURSE: While the patient was admitted on PCU he was placed on telemetry and had an echocardiogram done which showed that he wasnt typical atrial flutter with 2-1 AV conduction with a mildly rapid ventricular response. He was started on metoprolol tartrate which was titrated to achieve rate co ntrol. He also worked with PT who cleared him for home but did recommend that he continues to work with home PT. Neurology saw the patient and recommended that we stop antiplatelet therapy and start him on Eliquis 5 mg twice a day. The patient was started on 2.5 mg twice a day and had a repeat CT head the next day to make sure there was no hemorrhagic conversion. When the CT of the head was negative for bleed the patient was started on Eliquis 5 mg twice a day and was cleared from neurology to be discharged home. [id number] - 4 points. He was started on Lipitor 40 mg for his CV risk was 8.1%. A1c was obtained as well, which was 6.0 who is advised to increase physical activity and incorporate healthier eating habits he was started on metformin 500 mg twice a day as well. We stopped his home hypertensive medications such as verapamil and Bumex when he started the metoprolol. His blood pressure was under control with the metoprolol. Lastly he was advised to quit smoking for he does have a tobacco abuse history patient said hell can take it into consideration. 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 Pt cleared for d/c by Cardiology and Neurology. DISCHARGE MEDICATIONS: Please see below. ALLERGIES: Please see below. PHYSICAL EXAMINATION ON DISCHARGE: VITAL SIGNS: Please see below. GENERAL: Morbidly obese middle aged man, lying calmly in bed, not in any apparent distress. He is not pale, anicteric and afebrile HEENT: Atraumatic. Very poor dentition, LUNGS: Clear to auscultation bilaterally. CARDIOVASCULAR: S1 and 2 heard, tachycardic rhythm. Telemetry reads atrial flutter with a heart rate 120s. ABDOMEN: Morbidly Obese, soft, not tender, not distended. Bowel sounds normoactive. EXTREMITIES: No pedal edema, 2+ bilateral pedal pulses noted. Chronic venous stasis changes bilaterally NEUROLOGICAL: Awake, alert, oriented 3. Visual field defect: Left eye loss in the nasal side and right eye vision loss on the temporal side. Left pupil round and reactive to light appropriately. Right pupil reacts to light a little but briskly dilates again. No observable motor deficiency. Expressive aphasia PSYCHIATRIC: Depressed affec LABORATORY DATA: Please see below. IMAGIN07/30/2018 Brain MRI IMPRESSION: 1. Acute infarction in the distribution of the left posterior cerebral artery. There is no hemorrhage or midline shift. 2. Old right cerebellar infarction. 3. Old left basal ganglia and left cerebellar lacunar infarctions. 4. Small vessel ischemic disease. Brain MRA Impression: 1. There is no aneurysm or arteriovenous malformation. 2. Atherosclerotic disease as described above. There is loss of the normal hyperintense signal in the P1 segment of the left posterior cerebral artery consistent with severe stenosis or occlusion. Vascular ultrasound of the carotids Impression: 1. No hemodynamically significant areas of narrowing or stenosis appreciated. Based on set standards narrowing falls within the less than 50% range. 2. Right vertebral artery not visualized. 07/31/2018 Neck CTA IMPRESSION: 1. There is no carotid stenosis. 2. Mild atherosclerotic disease involves the distal left vertebral artery and the inferior posterior fossa. CT angiographic Head IMPRESSION: 1. There is no aneurysm or arteriovenous malformation. 2. There is occlusion of the distal P1 segment of the left posterior cerebral artery. 3. Other areas of atherosclerotic disease as described above are better seen on MRA performed 07/30/2018. Chest x-ray IMPRESSION: No acute disease. 08/02/[address] Impression: Large left posterior cerebral artery infarction without hemorrhagic component, mass effect or midline shift. PROGNOSIS: Fair ACTIVITY: As tolerated. DIET: DASH diet +2.5 g sodium diet DISPOSITION: Home with home PT DISCHARGE INSTRUCTIONS: 1. 1. Follow-up with your PCP in 5-7 days and neurology and cardiology and 10-14 days. 2. Start Eliquis 5 mg twice a day 3. Start atorvastatin 40 mg daily 4. Start Lopressor 100 mg twice a day Start metformin 500 mg twice a day 5. Stop verapamil 6. Stop Bumex 7. Continue to work with home PT 8. Continues to have healthy lifestyle and daily exercise to promote weight loss 9. Call your PCP or go to the ER if symptoms return 10. F/u with Ophthomology in 1 week. No driving until Ophthomology evaluates. 11. If SOB, increased weight gain >2lbs, call PCP and bumex may need to be restarted. ITEMS TO FOLLOWUP ON OUTPATIENT: 1. Posterior cerebellar artery stroke 2. Atrial flutter 3. Prediabetes 4. Medical management 5. Home PT DISCHARGE CONDITION: Stable. TIME SPENT ON DISCHARGE: Greater than35 minutes. Vital Signs/I&Os Vital Signs Date Time Temp Pulse Resp B/P (MAP) Pulse Ox O2 Delivery O2 Flow Rate FiO2 08/02/18 09:39 96 128/80 08/02/18 08:00 98.0 18 93 Room Air I&O- Last 24 Hours up to 6 AM 08/02/18 06:00 Intake Total 1440 ml Output Total 0 ml Balance 1440 ml Laboratory Data Labs 24H Laboratory Tests 2 08/02/18 08:12: Immature Granulocyte % (Auto) 0.3, White Blood Count 10.4H, Red Blood Count 5.05, Hemoglobin 16.3, Hematocrit 47.1, Mean Corpuscular Volume 93.3, Mean Corpuscular Hemoglobin 32.3, Mean Corpuscular Hemoglobin Concent 34.6, Red Cell Distribution Width 14.5, Platelet Count 240, Neutrophils (%) (Auto) 59.3, Lymphocytes (%) (Auto) 23.4L, Monocytes (%) (Auto) 13.3H, Eosinophils (%) (Auto) 3.1H, Basophils (%) (Auto) 0.6, Neutrophils # (Auto) 6.2, Lymphocytes # (Auto) 2.4, Monocytes # (Auto) 1.4H, Eosinophils # (Auto) 0.3, Basophils # (Auto) 0.1, Nucleated Red Blood Cells % (auto) 0.0, Anion Gap 6L, Glomerular Filtration Rate > 60.0, Blood Urea Nitrogen 19#H, Creatinine 1.10, Sodium Level 139, Potassium Level 3.9, Chloride Level 103, Carbon Dioxide Level 30, Calcium Level 8.7, Magnesium Level 2.0 CBC/BMP Laboratory Tests 08/02/18 08:12 Red Blood Count 5.05, Mean Corpuscular Volume 93.3, Mean Corpuscular Hemoglobin 32.3, Mean Corpuscular Hemoglobin Concent 34.6, Red Cell Distribution Width 14.5, Neutrophils (%) (Auto) 59.3, Lymphocytes (%) (Auto) 23.4 L, Monocytes (%) (Auto) 13.3 H, Eosinophils (%) (Auto) 3.1 H, Basophils (%) (Auto) 0.6, Neutrophils # (Auto) 6.2, Lymphocytes # (Auto) 2.4, Monocytes # (Auto) 1.4 H, Eosinophils # (Auto) 0.3, Basophils # (Auto) 0.1, Calcium Level 8.7 Microbiology Microbiology 07/31/18 Respiratory Virus Panel (PCR) ([facility]) - Final, Complete Discharge Medications Scheduled Apixaban Base (Eliquis) 5 Mg Tab, 1 TAB PO BID Atorvastatin Calcium (Atorvastatin Calcium) 40 Mg Tab, 1 TAB PO DAILY Metformin Hydrochloride (Metformin HCl) 500 Mg Tab, 1 TAB PO BID Metoprolol Tartrate (Lopressor) 100 Mg Tab, 100 MG PO BID Omeprazole (Omeprazole) 20 Mg Tab, 20 MG PO BID, (Reported) Allergies Coded Allergies: No Known Drug Allergy (Verified Allergy, Unknown, 10/07/12) GME ATTESTATION GME ATTESTATION My faculty preceptor for this patient encounter was physically present during the encounter and was fully available. All aspects of the patient interview, examination, medical decision making process, and medical care plan development were reviewed and approved by the faculty preceptor. The faculty preceptor is aware and concurs with the plan as stated in the body of this note and will attest to such by his/her cosignature. RODRIGUEZ OLVERA DO Aug 02, 2018 13:53 MIGUEL PARDO MD Aug 17, 2018 14:08
[2018-08-02] MEDS ORDERED: ATOR40TA75 PO (14:08)
[2018-08-02] MEDS ORDERED: APIXABAN 5 MG TAB (ELIQUIS) PO SCH (21:00)
[2018-08-02] MEDS ORDERED: METOPROLOL TARTRATE 100 MG TAB PO SCH (21:00)
== END 2018-08-02 15:23 | disposition home health service (06) | DRG 45 ==
LOC: M ED 12:39 → M ED INP 19:37 → M PCU 21:56
PROVIDERS: ADMIT Hospitalist; ATTEND Internal Medicine
DX: I63.532 Cerebral infarction due to unspecified occlusion or stenosis of left posterior cerebral artery (principal); I48.3 Typical atrial flutter; E66.09 Other obesity due to excess calories; I10 Essential (primary) hypertension; K21.9 Gastro-esophageal reflux disease without esophagitis; F17.210 Nicotine dependence, cigarettes, uncomplicated; R73.03 Prediabetes; H53.461 Homonymous bilateral field defects, right side; R48.0 Dyslexia and alexia; Z68.37 Body mass index [BMI] 37.0-37.9, adult; Z79.899 Other long term (current) drug therapy

== ENCOUNTER → 2018-09-05 | Outpatient (CLI) | payer BC, OTHER ==
[~2018-09-05] MED LIST changes: +ATOR1TAB21 PO; +ATOR40TA75 PO; +BUME1TAB29 PO; +ELIQ5TAB PO; +LOPR1TAB7 PO; +METF500T13 PO; +OMEP20TA PO; +POTA8TAB3 PO; +VERA40TA PO
[2018-09-05 10:14] LABS: HEMATOCRIT 50.9 % (42.0-52.0); MEAN CORPUSCULAR HEMOGLOBIN 32.6 pg (27.0-33.0); MEAN CORPUSCULAR HGB CONC 33.4 g/dl (32.0-36.5); MEAN CORPUSCULAR VOLUME 97.5 fl (80.0-96.0); PLATELET COUNT, AUTOMATED 264 10^3/uL (150-450); RED BLOOD COUNT 5.22 10^6/uL (4.30-6.10); WHITE BLOOD COUNT 7.5 10^3/uL (4.0-10.0)
[2018-09-05 10:42] LABS: ALT/SGPT 22 U/L (12-78); BILIRUBIN,TOTAL 0.8 MG/DL (0.2-1.0); BLOOD UREA NITROGEN 7 MG/DL (7-18); CALCIUM LEVEL 8.3 MG/DL (8.5-10.1); CARBON DIOXIDE LEVEL 30 MEQ/L (21-32); CHLORIDE LEVEL 106 MEQ/L (98-107); CREATININE FOR GFR 0.99 MG/DL (0.70-1.30); GLOMERULAR FILTRATION RATE > 60.0 (>60); GLUCOSE, FASTING 91 MG/DL (70-100); SODIUM LEVEL 143 MEQ/L (136-145); TOTAL PROTEIN 7.6 GM/DL (6.4-8.2)
[2018-09-05 11:16] LABS: HEMOGLOBIN A1c 5.5 %
== END ==
LOC: M LAB 09:11
PROVIDERS: ATTEND Family Medicine
DX: I10 Essential (primary) hypertension (principal); E11.9 Type 2 diabetes mellitus without complications; Z86.73 Personal history of transient ischemic attack (TIA), and cerebral infarction without residual deficits

== ENCOUNTER → 2018-10-09 | Outpatient (CLI) | payer BC, OTHER ==
[~2018-10-09] MED LIST changes: -/VERA40TA PO; +VERA1TAB23 PO
[2018-10-09 13:01] LABS: BASO % 0.4 % (0.0-1.0); EOS # 0.2 10^3/uL (0.0-0.50); EOS % 2.2 % (0.0-3.0); HEMATOCRIT 47.3 % (42.0-52.0); HEMOGLOBIN 16.1 g/dl (13.5-17.5); LYMPH % 21.3 % (24.0-44.0); MEAN CORPUSCULAR HEMOGLOBIN 32.9 pg (27.0-33.0); MEAN CORPUSCULAR VOLUME 96.5 fl (80.0-96.0); MONO # 1.2 10^3/uL (0.0-0.8); NEUTROPHILS # 5.9 10^3/uL (1.8-7.7); NEUTROPHILS % 62.9 % (36.0-66.0); PLATELET COUNT, AUTOMATED 248 10^3/uL (150-450); WHITE BLOOD COUNT 9.4 10^3/uL (4.0-10.0)
[2018-10-09 13:26] LABS: BLOOD UREA NITROGEN 6 MG/DL (7-18); CALCIUM LEVEL 8.6 MG/DL (8.5-10.1); CARBON DIOXIDE LEVEL 31 MEQ/L (21-32); CHLORIDE LEVEL 104 MEQ/L (98-107); CREATININE FOR GFR 0.92 MG/DL (0.70-1.30); GLOMERULAR FILTRATION RATE > 60.0 (>60); GLUCOSE, FASTING 95 MG/DL (70-100); SODIUM LEVEL 140 MEQ/L (136-145)
== END ==
LOC: M LAB 12:10
PROVIDERS: ATTEND Internal Medicine Cardiovascular Disease
DX: R94.31 Abnormal electrocardiogram [ECG] [EKG] (principal); I11.9 Hypertensive heart disease without heart failure; I63.9 Cerebral infarction, unspecified

== ENCOUNTER 2018-11-07 07:58 | Outpatient (RCR) | payer BC, OTHER ==
[2018-11-07] MEDS ORDERED: DIGO0.259 PO (08:31)
[2018-11-07] MEDS ORDERED: ATOR80TA59 PO (08:31)
[2018-11-07] MEDS ORDERED: ATEN50TA2 PO (08:38)
--- NOTE | 2018-11-07 10:43 | CARECAPL ---
Assessment Account #s: Initial Assessment General Diagnoses: Stent (one stent, states will be reevaluated for more stents later), CHF (Ef less than 25%) Date of event: Oct 10, 2018 Physician: Dejan Iglesias Allergies: Coded Allergies: MS - No Known Drug Allergy (Verified Allergy, Unknown, 10/07/12) Date Entered Program: November 07, 2018 Risk strat for cardiac event: High Exercise Date: November 07, 2018 Assessment: Initial Assessment 6-MWT: Walked feet (will most likely do 6 minute walk test on each visit d/t to weight restriction on exercise equipment) Exercise Prescription Plan to educate about cardiac risk factors, cardiac disease and to build endurance and strength through a monitored exercise program Modalities initiated: Treadmill (will add), Cardio-Strider (will add), Nustep (will add), Arm Aerometer (will add), Dumbells (will add) Frequency: 2 Duration (Minutes) 30-60 minutes total exercise a day. 6-10 work intervals in minutes. as needed rest intervals in minutes. Functional Capacity Goal Sustained Metabolic Equivalent of a task (MET) goal of 3.0-3.5 for 15-20 minutes. Intensity: 3-Moderate Progression (METS) Increase by: .5 METS every: 2-3 sessions Target Heart Rate r+35-40 beta ashley therapy Resistance Training: Yes (will add) Reps: 6-8 Hypertension: Yes Hypertension controlled with: Medication Resting 141/76 Meds see below Medications Scheduled Apixaban (Eliquis), 1 TAB PO BID Atenolol (Atenolol), 75 MG PO DAILY, (Reported) Atorvastatin Calcium (Atorvastatin Calcium), 80 MG PO DAILY, (Reported) Digoxin (Digox), 250 MCG PO DAILY, (Reported) Metformin HCl (Metformin HCl), 1 TAB PO BID Omeprazole (Omeprazole), 20 MG PO BID, (Reported) Discontinued Medications Atorvastatin Calcium (Atorvastatin Calcium), 1 TAB PO DAILY Discontinued Reason: Pt states not taking Metoprolol Tartrate (Lopressor), 100 MG PO BID Discontinued Reason: Pt states not taking Intervention Home exercise: Type (will determine at first exercise. Has no exercise experience) Target Goals Individual exercise Rx (1) BP 140/90 or 130/80 if DM or CKD (1) Aerobic active 30+min 5 days per week (1) Nutrition Date: November 07, 2018 Assessment: Initial Assessment Lipid- med/supplement Atorvastatin Diabetes Diabetes: Yes ( on metformin. Pt states he did not know he was diabetic) Diabetes medication Metformin bid Monitor Blood Sugar at home: No (was not aware of what medication was for and states he did not know he was diabetic) Weight Management Weight (lbs): 430.4 Height (inches): 70 Waist Circumference (Inches): 61 BMI: 61.7 Weight goal: 250 Special Diet: other (not on any diet. need much education on diet. ) Alcohol: none Diet Access Tool: other ( on questione) Score: 61 Intervention Balance Bridge Assembler Consult: Yes (will refer to private engineering systems analyst for weight loss program) Nurse/patient discussion: Yes (spent much time educating on healthy food choices. Much education needed.) Dietary Goals to make better choices, smaller portions and weight loss Diet Class: Yes (will see while in program as a group) Referral to Diabetes education: Yes (new diabetic) Referral to lipid clinic: Yes (will determine when receive blood work requested) Referral to weight mangement p: Yes (will refer to Healthy lifestyles) Target goal LDL-C<100 if triglycerides are >200 Non-HDL-C should be <130 (1) LDL-C<70 for high risk patients (4) HbA1c<7% (1) BMI<25 Waist cir<40in M/<35in F (1) Education Date: November 07, 2018 Assessment: Initial Assessment Learning Barriers: vision (rt eye deficit. States d/t recent stroke) Knowledge Test Score: 10 Family Support: Yes (mother) Tobacco use: Yes (smoke 1/2 ppd. States has dropped from 1ppd recently) Tobacco Use Cigarettes smoked per day: 10 Smokeless tobacco: No Intervention Referral to smoking cessation: Yes (will give information and provide education and support to quit smoking) Individual education and couns: Yes Tobacco Adjunct: Yes Education class schedule given: Yes (will provide) Education: tobacco triggers Target Goals Complete cessation of tobacco use (1). Psychosocial Date: November 07, 2018 Assessment: Initial Assessment Psych Test (Initial/Discharge) Tool Used: CESD Score: 4 Intervention Physician Consult: No Physician Referral: No Stress Management Class: Yes (will provide during program) Uses Stress Management Skills: Yes Target Goal Assess presence or absence of depression using a valid screening tool (1). Maximize coping skills (2). Positive support system (2). Patient/Program Goal Preventative Medication: Yes Beta blockade, Yes Statin/OTR lipid Lowering, Yes Other (digoxin) Christiana Garcia RN November 07, 2018 10:43
--- NOTE | 2018-11-27 10:44 | CARECAPL ---
Assessment Account #s: Re-Assessment II (DISCHARGE FROM PROGRAM/LACK OF INTEREST) General Diagnoses: Stent Date of event: Oct 10, 2018 Physician: Deajn Iglesias Allergies: Coded Allergies: MS - No Known Drug Allergy (Verified Allergy, Unknown, 10/07/12) Date Entered Program: November 07, 2018 Risk strat for cardiac event: Low Exercise Date: November 27, 2018 Assessment: Followup/Discharge Exercise Prescription Duration (Minutes) minutes total exercise a day. work intervals in minutes. rest intervals in minutes. Functional Capacity Goal Sustained Metabolic Equivalent of a task (MET) goal of for minutes. Progression (METS) Increase by: METS every: sessions Target Heart Rate RATE +35-40 BASED ON BETA ERICA THERAPY Resting 146/76 Medications Scheduled Apixaban (Eliquis), 1 TAB PO BID Atenolol (Atenolol), 75 MG PO DAILY, (Reported) Atorvastatin Calcium (Atorvastatin Calcium), 80 MG PO DAILY, (Reported) Digoxin (Digox), 250 MCG PO DAILY, (Reported) Metformin HCl (Metformin HCl), 1 TAB PO BID Omeprazole (Omeprazole), 20 MG PO BID, (Reported) Education Goals Met: No (PATIENT DID NOT ATTEND ANY EXERCISE CLASSES) Target Goals Individual exercise Rx (1) BP 140/90 or 130/80 if DM or CKD (1) Aerobic active 30+min 5 days per week (1) Nutrition Date: November 27, 2018 Assessment: Followup/Discharge Weight Management Weight (lbs): 430.4 BMI: 61.7 Education Goals Met: No (PATIENT HAS NOT ATTENDED CLASSES) Target goal LDL-C<100 if triglycerides are >200 Non-HDL-C should be <130 (1) LDL-C<70 for high risk patients (4) HbA1c<7% (1) BMI<25 Waist cir<40in M/<35in F (1) Education Date: November 27, 2018 Assessment: Followup/Discharge Tobacco use: Yes Education Goals Met: No (PATIENT HAS NOT ATTENDED EXERCISE CLASSES) Target Goals Complete cessation of tobacco use (1). Psychosocial Date: November 27, 2018 Assessment: Followup/Discharge Education Goals Met: No Target Goal Assess presence or absence of depression using a valid screening tool (1). Maximize coping skills (2). Positive support system (2). Patient/Program Goal Preventative Medication: Yes Beta blockade (PATIENT HAS NOT ATTENDED), Yes Statin/OTR lipid Lowering Ga Mcginnis RN November 27, 2018 10:44
== END 2018-12-05 ==
LOC: M CR 07:58
PROVIDERS: ATTEND Internal Medicine Cardiovascular Disease
DX: Z98.61 Coronary angioplasty status (principal)

== ENCOUNTER → 2019-07-31 | Outpatient (CLI) | payer BC, OTHER ==
[~2019-07-31] MED LIST changes: +ATEN50TA2 PO; +ATOR80TA59 PO; +DIGO0.259 PO; +OMEP-358 PO; -OMEP20TA PO
[2019-07-31 10:46] LABS: HEMATOCRIT 46.1 % (42.0-52.0); HEMOGLOBIN 15.1 g/dl (13.5-17.5); MEAN CORPUSCULAR HEMOGLOBIN 32.9 pg (27.0-33.0); MEAN CORPUSCULAR HGB CONC 32.8 g/dl (32.0-36.5); MEAN CORPUSCULAR VOLUME 100.4 fl (80.0-96.0); PLATELET COUNT, AUTOMATED 280 10^3/uL (150-450); RED BLOOD COUNT 4.59 10^6/uL (4.30-6.10); WHITE BLOOD COUNT 9.1 10^3/uL (4.0-10.0)
--- NOTE | 2019-07-31 10:50 | REP ---
PA and lateral chest: Comparison is 07/31/2018. The lung saxena are clear. The cardiac size is normal. The sherice, mediastinum, and skeletal structures are unremarkable. Impression: Negative PA and lateral chest. There is no interval change. Electronically Signed by Khanh Weinberg MD 07/31/2019 10:41 A
[2019-07-31 11:22] LABS: ALBUMIN 2.8 GM/DL (3.2-5.2); ALT/SGPT 14 U/L (12-78); BILIRUBIN,TOTAL 0.7 MG/DL (0.2-1.0); BLOOD UREA NITROGEN 7 MG/DL (7-18); CALCIUM LEVEL 8.3 MG/DL (8.5-10.1); CARBON DIOXIDE LEVEL 34 MEQ/L (21-32); CHLORIDE LEVEL 101 MEQ/L (98-107); CHOLESTEROL LEVEL 109 MG/DL (<200); CHOLESTEROL RISK RATIO 3.892 (<5); CREATININE FOR GFR 0.82 MG/DL (0.70-1.30); GLOMERULAR FILTRATION RATE > 60.0 (>60); GLUCOSE, FASTING 91 MG/DL (70-100); HDL CHOLESTEROL 28 MG/DL (>40); LDL CHOLESTEROL 59 MG/DL (<100); NON-HDL-C 81 MG/DL; POTASSIUM SERUM 3.3 MEQ/L (3.5-5.1); SODIUM LEVEL 141 MEQ/L (136-145); THYROXINE (T4) 8.2 UG/DL (4.5-12.0); TOTAL PROTEIN 7.2 GM/DL (6.4-8.2); TRIGLYCERIDES LEVEL 111 MG/DL (<150)
[2019-07-31 11:30] LABS: TOTAL T3 86.6 NG/DL (60.0-181.0)
[2019-07-31 11:35] LABS: HEMOGLOBIN A1c 5.5 %
--- NOTE | 2019-08-01 08:11 | ECGEPIP ---
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
== END ==
LOC: M LAB 09:41
PROVIDERS: ATTEND Family Medicine
DX: I10 Essential (primary) hypertension (principal); E11.9 Type 2 diabetes mellitus without complications; R53.83 Other fatigue

== ENCOUNTER → 2020-02-29 | Outpatient (CLI) | payer BC, OTHER ==
[2020-02-29 13:17] LABS: HEMATOCRIT 49.5 % (42.0-52.0); MEAN CORPUSCULAR HEMOGLOBIN 34.9 pg (27.0-33.0); MEAN CORPUSCULAR HGB CONC 34.3 g/dl (32.0-36.5); MEAN CORPUSCULAR VOLUME 101.6 fl (80.0-96.0); PLATELET COUNT, AUTOMATED 326 10^3/uL (150-450); RED BLOOD COUNT 4.87 10^6/uL (4.30-6.10); WHITE BLOOD COUNT 9.1 10^3/uL (4.0-10.0)
[2020-02-29 14:12] LABS: ALBUMIN 3.2 GM/DL (3.2-5.2); ALT/SGPT 19 U/L (12-78); BILIRUBIN,TOTAL 0.7 MG/DL (0.2-1.0); BLOOD UREA NITROGEN 14 MG/DL (7-18); CALCIUM LEVEL 8.9 MG/DL (8.5-10.1); CARBON DIOXIDE LEVEL 31 MEQ/L (21-32); CHLORIDE LEVEL 101 MEQ/L (98-107); CHOLESTEROL LEVEL 109 MG/DL (<200); CHOLESTEROL RISK RATIO 4.192 (<5); CREATININE FOR GFR 1.04 MG/DL (0.70-1.30); GLOMERULAR FILTRATION RATE > 60.0 (>60); GLUCOSE, FASTING 79 MG/DL (70-100); HDL CHOLESTEROL 26 MG/DL (>40); LDL CHOLESTEROL 64 MG/DL (<100); NON-HDL-C 83 MG/DL; POTASSIUM SERUM 4.6 MEQ/L (3.5-5.1); PROSTATIC SPECIFIC AG MONITOR 0.38 NG/ML (< 4.00); SODIUM LEVEL 138 MEQ/L (136-145); TESTOSTERONE 191 NG/DL (241-827); TOTAL PROTEIN 7.9 GM/DL (6.4-8.2); TRIGLYCERIDES LEVEL 96 MG/DL (<150)
[2020-02-29 15:10] LABS: HEMOGLOBIN A1c 5.6 %
--- NOTE | 2020-03-25 17:09 | ECGEPIP ---
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
--- NOTE | 2020-04-27 08:20 | REP ---
THREE VIEWS OF THE CHEST COMPARISON: Multiple. The latest 07/31/2019 at 10:27 a.m. REASON FOR EXAM: Hypertension. FINDINGS: The cardiomediastinal silhouette is unchanged. The heart size is borderline. The lung saxena are clear and unchanged. The pleural angles remain sharp. The osseous structures are stable and intact. Spinal degenerative changes are noted status quo. IMPRESSION: No acute cardiopulmonary disease. MTDD
== END ==
LOC: M LAB 08:55
PROVIDERS: ATTEND Family Medicine
DX: I10 Essential (primary) hypertension (principal); E11.9 Type 2 diabetes mellitus without complications

== ENCOUNTER 2020-07-05 12:18 | Inpatient (IN) | payer BC, OTHER ==
[~2020-07-05] VITALS: Ht 167.6 cm; Wt 165.6 kg
[2020-07-05 12:54] LABS: BASO # 0.1 10^3/uL (0.0-0.2); BASO % 0.5 % (0.0-1.0); EOS # 0.3 10^3/uL (0.0-0.5); EOS % 2.9 % (0.0-3.0); HEMATOCRIT 50.6 % (42.0-52.0); HEMOGLOBIN 16.4 g/dl (13.5-17.5); LYMPH # 2.1 10^3/uL (1.5-5.0); LYMPH % 18.9 % (24.0-44.0); MEAN CORPUSCULAR HEMOGLOBIN 31.7 pg (27.0-33.0); MEAN CORPUSCULAR HGB CONC 32.4 g/dl (32.0-36.5); MEAN CORPUSCULAR VOLUME 97.7 fl (80.0-96.0); MONO # 1.4 10^3/uL (0.0-0.8); MONO % 12.4 % (0.0-5.0); NEUTROPHILS # 7.3 10^3/uL (1.5-8.5); PLATELET COUNT, AUTOMATED 270 10^3/uL (150-450); RED BLOOD COUNT 5.18 10^6/uL (4.30-6.10); WHITE BLOOD COUNT 11.2 10^3/uL (4.0-10.0)
--- NOTE | 2020-07-05 12:56 | REP ---
INDICATION: Altered Mental Status COMPARISON: 02/29/2020 TECHNIQUE: Portable AP view of the chest FINDINGS: The mediastinum and cardiac silhouette are stable and within normal limits for portable technique. The lung saxena are clear without acute consolidation, effusion, or pneumothorax. Skeletal structures are intact. IMPRESSION: No acute cardiopulmonary process appreciated. <Electronically signed by Jorge Linn > 07/05/20 [id number]
--- NOTE | 2020-07-05 13:15 | REP ---
INDICATION: Altered Mental Status COMPARISON: 08/02/2018 TECHNIQUE: Axial noncontrast images from the skull base to the thoracic inlet with coronal reformations. This CT examination was performed using the following dose reduction techniques: Automated exposure control, adjustment of mA and/or kv according to the patient's size, and use of iterative reconstruction technique. FINDINGS: Age-related atrophy and microvascular ischemic changes are appreciated along with encephalomalacia in the cerebellum and left parieto-occipital lobe consistent with prior infarction. The ventricles and sulci are symmetric. Brown-white differentiation is maintained. There is no evidence for acute intracranial hemorrhage, mass/mass effect, pathology or infarction. No extra-axial fluid collection. Calvarium is intact. Paranasal sinuses and mastoid air cells are clear. IMPRESSION: Atrophy and encephalomalacia consistent with old infarction No acute intracranial hemorrhage, infarction, or mass/mass effect. <Electronically signed by Jorge Linn > 07/05/20 [id number]
[2020-07-05 13:20] LABS: OSMOLALITY SERUM 284 MOSM/KG (275-295)
--- NOTE | 2020-07-05 13:21 | ECGEPIP ---
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
[2020-07-05 13:41] LABS: ALBUMIN 2.9 GM/DL (3.2-5.2); ALT/SGPT 17 U/L (12-78); BILIRUBIN,DIRECT 0.1 MG/DL (0.0-0.2); BILIRUBIN,TOTAL 0.6 MG/DL (0.2-1.0); BLOOD UREA NITROGEN 6 MG/DL (7-18); CALCIUM LEVEL 8.7 MG/DL (8.5-10.1); CARBON DIOXIDE LEVEL 31 MEQ/L (21-32); CHLORIDE LEVEL 104 MEQ/L (98-107); CK-MB VALUE MASS < 1.0 NG/ML (<3.6); CPK CREATINE PHOSPHOKINASE 73 U/L (39-308); CREATININE FOR GFR 1.09 MG/DL (0.70-1.30); DIGOXIN LEVEL 0.7 NG/ML (0.5-2.0); ETHYL ALCOHOL (ETHANOL) 0.003 % (0.000-0.010); GLOMERULAR FILTRATION RATE > 60.0 (>56); GLUCOSE, FASTING 83 MG/DL (70-100); MB/CK RELATIVE INDEX 1.37 (< OR =4); POTASSIUM SERUM 4.2 MEQ/L (3.5-5.1); SODIUM LEVEL 138 MEQ/L (136-145); TOTAL PROTEIN 7.6 GM/DL (6.4-8.2); TROPONIN I < 0.02 NG/ML (< 0.10)
[2020-07-05] MEDS ORDERED: ASPIRIN 81 MG CHEW TABLET PO ONE (14:00)
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
[2020-07-05] MEDS ORDERED: GLUCAGON INJ 1MG VIAL SC PRN (14:45)
[2020-07-05] MEDS ORDERED: DEXTROSE 50% 50 ML SYRINGE IV PRN (14:45)
[2020-07-05] MEDS ORDERED: GLUCOSE 4GM CHEW TABLET PO PRN (14:45)
[2020-07-05 14:54] LABS: AMPHETAMINES LEVEL URINE NEGATIVE (NEGATIVE); BARBITURATES URINE NEGATIVE (NEGATIVE); BENZODIAZEPINES URINE NEGATIVE (NEGATIVE); CANNABINOIDS URINE NEGATIVE (NEGATIVE); COCAINE METABOLITE URINE NEGATIVE (NEGATIVE); METHADONE URINE NEGATIVE (NEGATIVE); OPIATES URINE NEGATIVE (NEGATIVE); PHENCYCLIDINE URINE NEGATIVE (NEGATIVE)
[2020-07-05 15:30] LABS: INR 1.31; PROTHROMBIN TIME 16.6 SECONDS (12.5-14.3)
[2020-07-05 15:31] LABS: PARTIAL THROMBOPLASTIN TIME 34.9 SECONDS (24.2-38.5)
[2020-07-05 15:38] LABS: CHOLESTEROL LEVEL 106 MG/DL (<200); CHOLESTEROL RISK RATIO 3.785 (<5); HDL CHOLESTEROL 28 MG/DL (>40); LDL CHOLESTEROL 57 MG/DL (<100); NON-HDL-C 78 MG/DL; TRIGLYCERIDES LEVEL 106 MG/DL (<150)
[2020-07-05 15:42] LABS: HEMOGLOBIN A1c 5.5 %
[2020-07-05] MEDS ORDERED: TEST200I14 IM (16:26)
[2020-07-05] MEDS ORDERED: ELIQ5TAB PO (16:26)
[2020-07-05] MEDS ORDERED: PLAV1TAB2 PO (16:26)
[2020-07-05] MEDS ORDERED: METF-839 PO (16:26)
[2020-07-05] MEDS ORDERED: CHLO25TA PO (16:26)
[2020-07-05] MEDS ORDERED: POTA1TAB21 PO (16:26)
[2020-07-05] MEDS ORDERED: MED REC COMMENT (16:27)
[2020-07-05] MEDS: HumaLOG INSULIN (NovoLOG) PER UNIT SC SCH ×2 (17:30→19:53)
[2020-07-05 18:30] VITALS: BP 155/74
[2020-07-05] MEDS: OMEPRAZOLE 20 MG CAP PO SCH (19:49)
[2020-07-05] MEDS: APIXABAN 5 MG TAB (ELIQUIS) PO SCH (19:49)
--- NOTE | 2020-07-05 21:42 | REPVR ---
PROCEDURE INFORMATION: Exam: MR Head Without Contrast Exam date and time: 07/05/2020 9:34 PM Age: 50 years old Clinical indication: Altered mental status/memory loss; Confusion or disorientation; Prior surgery; Surgery date: 6+ months; Surgery type: Biopsy; Additional info: R/O new CVA, AMS TECHNIQUE: Imaging protocol: MR of the head without contrast. COMPARISON: MRI-Brain without Contrast 07/30/2018 5:42 PM FINDINGS: Brain: Small focus of restricted diffusion within the right thalamus, concerning for acute infarct. Chronic left INSOLE AND HEEL STIFFENER territory infarct with encephalomalacia changes involving the left temporal and occipital lobes. Chronic right cerebellar hemisphere infarct. Small chronic left cerebellar hemisphere lacunar infarct. Nonspecific T2/FLAIR hyperintensities of the periventricular and deep subcortical white matter, most likely secondary to chronic small vessel ischemic change. No evidence of acute intracranial hemorrhage or extra-axial fluid collection. No evidence of mass effect or midline shift. Cerebral ventricles: Prominence of the ventricles and sulci, likely attributed to parenchymal volume loss. Bones/joints: Unremarkable. Paranasal sinuses: Normal as visualized. No acute sinusitis. Mastoid air cells: No mastoid effusion. Orbits: Unremarkable. Soft tissues: Unremarkable. IMPRESSION: 1. Small focus of restricted diffusion within the right thalamus, concerning for acute infarct. 2. Chronic findings, as above. Electronically signed by: Zach Flores On 07/05/2020 21:42:16 PM
--- NOTE | 2020-07-05 21:43 | REPVR ---
PROCEDURE INFORMATION: Exam: MR Angiogram Head Without Contrast, Arteries Exam date and time: 07/05/2020 9:34 PM Age: 50 years old Clinical indication: Cognitive deficit; Altered mental status; Prior surgery; Surgery date: 6+ months; Surgery type: Biopsy; Additional info: R/O new CVA, AMS TECHNIQUE: Imaging protocol: MR angiogram head without contrast. Exam focused on the arteries. COMPARISON: MRA BRAIN W/O CONTRAST 07/30/2018 5:42 PM FINDINGS: ANTERIOR CIRCULATION: Right internal carotid artery: Intracranial segment is patent with no significant stenosis. No aneurysm. Right middle cerebral artery: No occlusion or significant stenosis. No aneurysm. Right anterior cerebral artery: No occlusion or significant stenosis. No aneurysm. Left internal carotid artery: Intracranial segment is patent with no significant stenosis. No aneurysm. Left middle cerebral artery: No occlusion or significant stenosis. No aneurysm. Left anterior cerebral artery: No occlusion or significant stenosis. No aneurysm. POSTERIOR CIRCULATION: Right vertebral artery: No occlusion or significant stenosis. No aneurysm. Left vertebral artery: No occlusion or significant stenosis. No aneurysm. Basilar artery: No occlusion or significant stenosis. No aneurysm. Right posterior cerebral artery: No occlusion or significant stenosis. No aneurysm. 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 Electronically signed by: Zach Flores On 07/05/2020 21:43:38 PM
[2020-07-05 22:00] VITALS: BP 154/74
--- NOTE | 2020-07-05 22:39 | REPVR ---
PROCEDURE INFORMATION: Exam: US Duplex Bilateral Extracranial Arteries Exam date and time: 07/05/2020 10:04 PM Age: 50 years old Clinical indication: Other: CVA; Additional info: R/O new CVA, AMS TECHNIQUE: Imaging protocol: Real-time Duplex ultrasound scan of the bilateral carotid and vertebral arteries combining gutierrez scale, color Doppler and spectral waveform analysis. Bilateral exam. COMPARISON: CT Head without contrast 07/05/2020 12:37 PM FINDINGS: Right side: ICA/ CCA ratio 0.86 with peak velocity of the right internal carotid artery 60 cm/s. There is no significant stenosis. The right vertebral artery is antegrade Left side: ICA/ CCA ratio 0.58 with peak velocity of the left internal carotid artery 42 cm/s. There is no evidence of stenosis.. The left vertebral artery is antegrade. IMPRESSION: No evidence of significant stenosis right or left internal carotid artery. REFERENCES: SRU CRITERIA. The degree of internal carotid artery stenosis is based on criteria defined by the Society of Radiologists in Ultrasound (SRU). Normal is no stenosis. Mild is less than 50% stenosis. Moderate is 50-69% stenosis. Severe is greater than 69% stenosis to near occlusion. Near occlusion is a markedly narrowed lumen. Total occlusion is no detectable patent lumen. Electronically signed by: Duc Cho On 07/05/2020 22:38:48 PM
[2020-07-05] MEDS: VANICREAM MOISTURIZING SKIN CREAM 113GM TUBE TOP SCH (23:25)
[2020-07-06] MEDS ORDERED: ALPRAZolam 0.5 MG TAB PO ONE (05:00)
[2020-07-06 06:00] VITALS: BP 149/74
[2020-07-06 06:37] LABS: HEMATOCRIT 46.4 % (42.0-52.0); HEMOGLOBIN 15.7 g/dl (13.5-17.5); MEAN CORPUSCULAR HEMOGLOBIN 32.6 pg (27.0-33.0); MEAN CORPUSCULAR HGB CONC 33.8 g/dl (32.0-36.5); MEAN CORPUSCULAR VOLUME 96.3 fl (80.0-96.0); PLATELET COUNT, AUTOMATED 237 10^3/uL (150-450); RED BLOOD COUNT 4.82 10^6/uL (4.30-6.10); WHITE BLOOD COUNT 9.3 10^3/uL (4.0-10.0)
[2020-07-06 07:06] LABS: ALBUMIN 2.5 GM/DL (3.2-5.2); ALT/SGPT 13 U/L (12-78); BILIRUBIN,TOTAL 0.8 MG/DL (0.2-1.0); BLOOD UREA NITROGEN 8 MG/DL (7-18); CALCIUM LEVEL 8.3 MG/DL (8.5-10.1); CARBON DIOXIDE LEVEL 28 MEQ/L (21-32); CHLORIDE LEVEL 105 MEQ/L (98-107); CREATININE FOR GFR 0.93 MG/DL (0.70-1.30); GLOMERULAR FILTRATION RATE > 60.0 (>56); GLUCOSE, FASTING 80 MG/DL (70-100); POTASSIUM SERUM 3.8 MEQ/L (3.5-5.1); SODIUM LEVEL 139 MEQ/L (136-145); TOTAL PROTEIN 7.1 GM/DL (6.4-8.2)
[2020-07-06] MEDS: HumaLOG INSULIN (NovoLOG) PER UNIT SC SCH ×4 (07:30→20:43)
[2020-07-06] MEDS: ASPIRIN 81 MG ENTERIC TAB PO SCH (08:18)
[2020-07-06] MEDS: APIXABAN 5 MG TAB (ELIQUIS) PO SCH ×2 (08:18→20:41)
[2020-07-06] MEDS: ATORVASTATIN 20 MG TAB PO SCH (08:22)
[2020-07-06] MEDS: OMEPRAZOLE 20 MG CAP PO SCH ×2 (08:22→20:41)
[2020-07-06] MEDS: VANICREAM MOISTURIZING SKIN CREAM 113GM TUBE TOP SCH ×2 (08:22→20:41)
[2020-07-06] MEDS ORDERED: CLOPIDOGREL 75 MG TAB PO SCH (09:00)
[2020-07-06] MEDS ORDERED: atenoloL 50 MG TAB PO SCH (09:00)
[2020-07-06] MEDS: DIGOXIN 0.25 MG TAB PO SCH (09:00)
[2020-07-06 14:00] VITALS: BP 127/66
--- NOTE | 2020-07-06 15:40 | IPNPDOC ---
Date Seen The patient was seen on 07/06/20. Progress Note SUBJECTIVE: MRI: acute infarct of right thalamus. Neuro was called overnight, suggested cardiac w/u and c/w ASA, statin. Echo done today, awaiting results. Still slightly confused at times but not worsened, no neuro deficits on exam. Denies chest pain, shortness of breath. OBJECTIVE: PHYSICAL EXAMINATION: VS: Stable CONSTITUTIONAL: obese male, no acute distress, resting comfortably, AAO x 2 (does not know time) EYES: PERRLA, EOM intact HENT, MOUTH: Normocephalic, atraumatic, moist mucous membranes, poor dental hygiene NECK: SUPPLE, no JVD, no lymphadenopathy, no carotid bruit CV: bradycardic (baseline), sinus rhythm, S1S2 normal, no murmurs/rubs/gallops RESPIRATORY: Clear to auscultation bilaterally, no rales/rhonchi/wheezes GI: BS positive in 4 quadrants, soft, nontender, nondistended, no rebound or guarding, no organomegaly : Deferred MUSCULOSKELETAL: Normal ROM. No cyanosis, clubbing, swelling, joint deformity, extremity edema INTEGUMENTARY: Intact, no rashes, no lesions, no erythema NEUROLOGIC: Cranial Nerves II-XII are intact, no focal deficits LABORATORY DATA: Please see below IMAGING: MRI brain: 1. Small focus of restricted diffusion within the right thalamus, concerning for acute infarct. 2. 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 Carotid US: No evidence of significant stenosis right or left internal carotid artery. CXR: neg CT head: Atrophy and encephalomalacia consistent with old infarction, no acute intracranial hemorrhage, infarction, or mass/mass effect. ASSESSMENT: 50-year-old male with past medical history of CVA 07/2018, hypertension, GERD, questionable vasculitis of brain admitted for further evaluation of AMS r/o TIA vs. evolving CVA. PLAN: Right thalamus CVA, acute -Likely cause of AMS, still confused at times, not best historian. Will TB with family today to further ask about baseline. 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 -Hx of CVA and TIA in past -Lipid panel unremarkable -F/u echocardiogram results -Per neuro, explore cardiac causes of emboli -C/w statin, ASA and eliquis. No plavix while on eliquis -PT/OT, neuro checks Sinus bradycardia, chronic -HR as low as high 40's, asymptomatic -Decreased BB further to 25 mg PO daily with holding parameters -ECG similar when compared to prior on file -Could also be digoxin as cause, discuss with cardiology if needed. Hx of atrial fib -Currently sinus bradycardia -C/w digoxin, eliquis, decreased dose of BB HTN -Stable -2 gm low sodium diet -C/w home med HLD -C/w statin DM type II -Holding Metformin -ISS and FS AC/HS, consistent carb diet GERD -C/w PPI BID DVT px -Eliquis BID DISPOSITION: Plan is likely home for discharge when medical evaluation complete. Will call patient's sister Martina today and update. VS, I&O, 24H, Al[place] Vital Signs/I&O Vital Signs Date Time Temp Pulse Resp B/P (MAP) Pulse Ox O2 Delivery O2 Flow Rate FiO2 07/06/20 09:00 49 07/06/20 06:00 98.0 17 149/74 (99) 96 Room Air I&O- Last 24 Hours up to 6 AM 07/06/20 06:00 Intake Total 450 ml Output Total 350 ml Balance 100 ml Laboratory Data 24H LABS Laboratory Tests 2 07/05/20 17:15: Urine Color YELLOW, Urine Appearance CLEAR, Urine pH 7.0, Urine Specific [place] 1.010, Urine Protein NEGATIVE, Urine Glucose (UA) NEGATIVE, Urine Ketones NEGATIVE, Urine Blood 1+H, Urine Nitrite NEGATIVE, Urine Bilirubin NEGATIVE, Urine Urobilinogen 0.2, Urine Leukocyte Esterase NEGATIVE, Urine WBC (Auto) 2, Urine RBC (Auto) 1, Urine Hyaline Casts (Auto) 0, Urine Bacteria (Auto) 1+H, Urine Squamous Epithelial Cells 1, Urine Mucus (Auto) SMALL, Urine Sperm (Auto) 07/05/20 17:36: Bedside Glucose (Misc Panel) 74 07/05/20 17:49: Bedside Glucose (Misc Panel) 62L 07/05/20 17:51: Bedside Glucose (Misc Panel) 76 07/05/20 18:17: Bedside Glucose (Misc Panel) 102 07/05/20 18:45: Bedside Glucose (Misc Panel) 106H 07/05/20 19:53: Bedside Glucose (Misc Panel) 119H 07/06/20 06:04: Nucleated Red Blood Cells % (auto) 0.0, Anion Gap 6L, Glomerular Filtration Rate > 60.0, Calcium Level 8.3L, Total Bilirubin 0.8, Aspartate Amino Transf (AST/SGOT) 12, Alanine Aminotransferase (ALT/SGPT) 13, Alkaline Phosphatase 101, Total Protein 7.1, Albumin 2.5L, Albumin/Globulin Ratio 0.5 07/06/20 11:35: Bedside Glucose (Misc Panel) 101 CBC/BMP Laboratory Tests 07/06/20 06:04 Current Medications Current Medications Medications (Trade) Dose Ordered Sig/Dolores Route PRN Reason Start Time Stop Time Status Last Admin Dose Admin Apixaban (Eliquis) 5 mg BID PO 07/05/20 21:00 07/06/20 08:18 Aspirin (Ecotrin) 81 mg DAILY PO 07/06/20 09:00 07/06/20 08:18 Atenolol (Tenormin) 50 mg DAILY PO 07/06/20 09:00 Atorvastatin Calcium (Lipitor) 80 mg DAILY PO 07/06/20 09:00 07/06/20 08:22 Clopidogrel Bisulfate (PLAVix) 75 mg DAILY PO 07/06/20 09:00 07/06/20 09:20 DC Dextrose (Dextrose 50%) 25 ml ASDIRECTED PRN IV SEE LABEL COMMENTS 07/05/20 14:45 Digoxin (Lanoxin) 0.25 mg DAILY PO 07/06/20 09:00 Emollient Cream (Vanicream) Apply to BLE BID TOP 07/05/20 21:15 07/06/20 08:22 Glucagon (Glucagon) 1 mg ASDIRECTED PRN SC SEE LABEL COMMENTS 07/05/20 14:45 Glucose (Glucose) 16 GM ASDIRECTED PRN PO SEE LABEL COMMENTS 07/05/20 14:45 Home Med (Med Rec Complete!) ASDIRECTED XX 07/05/20 16:30 07/05/20 16:35 DC Insulin Human Lispro (HumaLOG INSULIN) SEE PROTOCOL TABLE AC SC 07/05/20 17:30 Insulin Human Lispro (HumaLOG INSULIN) SEE PROTOCOL TABLE QHS SC 07/05/20 21:00 Omeprazole (PriLOSEC) 20 mg BID PO 07/05/20 21:00 07/06/20 08:22 Allergies Coded Allergies: No Known Drug Allergies (Verified Allergy, Unknown, 07/05/20) Fiordaliza Malhotra MD Jul 06, 2020 15:40
[2020-07-06 22:00] VITALS: BP 139/68
[2020-07-07 06:00] VITALS: BP 138/69
[2020-07-07 06:54] LABS: HEMATOCRIT 47.2 % (42.0-52.0); HEMOGLOBIN 15.5 g/dl (13.5-17.5); MEAN CORPUSCULAR HEMOGLOBIN 32.2 pg (27.0-33.0); MEAN CORPUSCULAR HGB CONC 32.8 g/dl (32.0-36.5); MEAN CORPUSCULAR VOLUME 97.9 fl (80.0-96.0); PLATELET COUNT, AUTOMATED 232 10^3/uL (150-450); RED BLOOD COUNT 4.82 10^6/uL (4.30-6.10); WHITE BLOOD COUNT 8.6 10^3/uL (4.0-10.0)
[2020-07-07 07:23] LABS: ALBUMIN 2.7 GM/DL (3.2-5.2); ALT/SGPT 17 U/L (12-78); BILIRUBIN,TOTAL 0.8 MG/DL (0.2-1.0); BLOOD UREA NITROGEN 11 MG/DL (7-18); CALCIUM LEVEL 8.1 MG/DL (8.5-10.1); CARBON DIOXIDE LEVEL 31 MEQ/L (21-32); CHLORIDE LEVEL 104 MEQ/L (98-107); CREATININE FOR GFR 1.03 MG/DL (0.70-1.30); GLOMERULAR FILTRATION RATE > 60.0 (>56); GLUCOSE, FASTING 79 MG/DL (70-100); POTASSIUM SERUM 3.6 MEQ/L (3.5-5.1); SODIUM LEVEL 139 MEQ/L (136-145); TOTAL PROTEIN 7.3 GM/DL (6.4-8.2)
[2020-07-07] MEDS: HumaLOG INSULIN (NovoLOG) PER UNIT SC SCH ×4 (07:30→20:16)
[2020-07-07] MEDS: atenoloL 25 MG TAB PO SCH (07:41)
[2020-07-07] MEDS: VANICREAM MOISTURIZING SKIN CREAM 113GM TUBE TOP SCH ×2 (07:43→20:21)
[2020-07-07] MEDS: OMEPRAZOLE 20 MG CAP PO SCH ×2 (07:43→20:21)
[2020-07-07] MEDS: ATORVASTATIN 20 MG TAB PO SCH (07:43)
[2020-07-07] MEDS: APIXABAN 5 MG TAB (ELIQUIS) PO SCH ×2 (07:43→20:21)
[2020-07-07] MEDS: ASPIRIN 81 MG ENTERIC TAB PO SCH (07:43)
[2020-07-07] MEDS: DIGOXIN 0.25 MG TAB PO SCH (07:47)
[2020-07-07 14:00] VITALS: BP 143/69
--- NOTE | 2020-07-07 15:34 | IPNPDOC ---
Date Seen The patient was seen on 07/07/20. Progress Note SUBJECTIVE: Neurology evaluated patient last evening and also saw patient was very forgetful, states likely 2/2 to thalamic CVA. Echo pending results. VS stable. Still very confused for me today but able to follow all commands, no neuro deficits. Denies chest pain, shortness of breath. OBJECTIVE: PHYSICAL EXAMINATION: VS: Stable CONSTITUTIONAL: obese male, no acute distress, resting comfortably, AAO x 2 (does not know time or reason he was here ) EYES: PERRLA, EOM intact HENT, MOUTH: Normocephalic, atraumatic, moist mucous membranes, poor dental hygiene NECK: SUPPLE, no JVD, no lymphadenopathy, no carotid bruit CV: bradycardic (baseline), sinus rhythm, S1S2 normal, no murmurs/rubs/gallops RESPIRATORY: Clear to auscultation bilaterally, no rales/rhonchi/wheezes GI: obese abd, BS positive in 4 quadrants, soft, nontender, nondistended, no rebound or guarding, no organomegaly : Deferred MUSCULOSKELETAL: Normal ROM. 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 Small focus of restricted diffusion within the right thalamus, concerning for acute infarct. 2. 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 Carotid US: No evidence of significant stenosis right or left internal carotid artery. CXR: neg CT head: Atrophy and encephalomalacia consistent with old infarction, no acute intracranial hemorrhage, infarction, or mass/mass effect. ASSESSMENT: 50-year-old male with past medical history of CVA 07/2018, hypertension, GERD, questionable vasculitis of brain admitted for further evaluation of AMS r/o TIA vs. evolving CVA. PLAN: Right thalamus CVA, acute -Likely cause of continued AMS, still confused as to reason, time, meds, etc. At baseline he was doing all chores, cooking, helping care for his elderly mother in their home. 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 -Hx of CVA and TIA in past -Lipid panel unremarkable -Per neuro, explore cardiac causes of emboli. -Per conversation with Dr. Reid (cardiology), would prefer EMANUEL due to body habitus of patient, history. Will order today, f/u results. -At this time the patient lacks the competency to return to his prior living situation independently. He cannot remember the most basic of information about his history, life. Far from his baseline. Per neuro, this is stroke related and may/may not return. He will likely need placement prior to discharge. -C/w statin, plavix and eliquis. -PT/OT Sinus bradycardia, chronic per cardiology -HR slightly improved to 59-90 today -C/w BB 25 mg PO daily with holding parameters -ECG similar when compared to prior on file -Discussed case with Dr. 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 Discussed case in detail with neurology, Dr. Guthrie as well. Will discuss with PFS. VS, I&O, 24H, Fishbone Vital Signs/I&O Vital Signs Date Time Temp Pulse Resp B/P (MAP) Pulse Ox O2 Delivery O2 Flow Rate FiO2 07/07/20 14:00 96.5 50 18 143/69 (93) 97 Room Air I&O- Last 24 Hours up to 6 AM 07/07/20 06:00 Intake Total 750 ml Balance 750 ml Laboratory Data 24H LABS Laboratory Tests 2 07/06/20 16:39: Bedside Glucose (Misc Panel) 106H 07/06/20 20:43: Bedside Glucose (Misc Panel) 100 07/07/20 06:26: Nucleated Red Blood Cells % (auto) 0.0, Anion Gap 4L, Glomerular Filtration Rate > 60.0, Calcium Level 8.1L, Total Bilirubin 0.8, Aspartate Amino Transf (AST/SGOT) 12, Alanine Aminotransferase (ALT/SGPT) 17, Alkaline Phosphatase 95, Total Protein 7.3, Albumin 2.7L, Albumin/Globulin Ratio 0.6 07/07/20 11:20: Bedside Glucose (Misc Panel) 97 CBC/BMP Laboratory Tests 07/07/20 06:26 Current Medications Current Medications Medications (Trade) Dose Ordered Sig/Dolores Route PRN Reason Start Time Stop Time Status Last Admin Dose Admin Apixaban (Eliquis) 5 mg BID PO 07/05/20 21:00 07/07/20 07:43 Aspirin (Ecotrin) 81 mg DAILY PO 07/06/20 09:00 07/07/20 07:43 Atenolol (Tenormin) 25 mg DAILY PO 07/07/20 09:00 Atenolol (Tenormin) 50 mg DAILY PO 07/06/20 09:00 07/06/20 15:38 DC Atorvastatin Calcium (Lipitor) 80 mg DAILY PO 07/06/20 09:00 07/07/20 07:43 Clopidogrel Bisulfate (PLAVix) 75 mg DAILY PO 07/06/20 09:00 07/06/20 09:20 DC Dextrose (Dextrose 50%) 25 ml ASDIRECTED PRN IV SEE LABEL COMMENTS 07/05/20 14:45 Digoxin (Lanoxin) 0.25 mg DAILY PO 07/06/20 09:00 Emollient Cream (Vanicream) Apply to BLE BID TOP 07/05/20 21:15 07/07/20 07:43 Glucagon (Glucagon) 1 mg ASDIRECTED PRN SC SEE LABEL COMMENTS 07/05/20 14:45 Glucose (Glucose) 16 GM ASDIRECTED PRN PO SEE LABEL COMMENTS 07/05/20 14:45 Home Med (Med Rec Complete!) ASDIRECTED XX 07/05/20 16:30 07/05/20 16:35 DC Insulin Human Lispro (HumaLOG INSULIN) SEE PROTOCOL TABLE AC SC 07/05/20 17:30 Insulin Human Lispro (HumaLOG INSULIN) SEE PROTOCOL TABLE QHS SC 07/05/20 21:00 Omeprazole (PriLOSEC) 20 mg BID PO 07/05/20 21:00 07/07/20 07:43 Allergies Coded Allergies: No Known Drug Allergies (Verified Allergy, Unknown, 07/05/20) Fiordaliza Malhotra MD Jul 07, 2020 15:33
[2020-07-07 22:00] VITALS: BP 150/74
[2020-07-08 06:00] VITALS: BP 146/78
[2020-07-08 06:26] LABS: HEMATOCRIT 48.3 % (42.0-52.0); HEMOGLOBIN 15.6 g/dl (13.5-17.5); MEAN CORPUSCULAR HEMOGLOBIN 31.3 pg (27.0-33.0); MEAN CORPUSCULAR HGB CONC 32.3 g/dl (32.0-36.5); MEAN CORPUSCULAR VOLUME 96.8 fl (80.0-96.0); PLATELET COUNT, AUTOMATED 226 10^3/uL (150-450); RED BLOOD COUNT 4.99 10^6/uL (4.30-6.10); WHITE BLOOD COUNT 8.3 10^3/uL (4.0-10.0)
[2020-07-08 06:51] LABS: ALBUMIN 2.9 GM/DL (3.2-5.2); ALT/SGPT 18 U/L (12-78); BLOOD UREA NITROGEN 13 MG/DL (7-18); CALCIUM LEVEL 8.4 MG/DL (8.5-10.1); CARBON DIOXIDE LEVEL 30 MEQ/L (21-32); CHLORIDE LEVEL 104 MEQ/L (98-107); CREATININE FOR GFR 0.97 MG/DL (0.70-1.30); GLOMERULAR FILTRATION RATE > 60.0 (>56); GLUCOSE, FASTING 82 MG/DL (70-100); POTASSIUM SERUM 3.5 MEQ/L (3.5-5.1); SODIUM LEVEL 138 MEQ/L (136-145); TOTAL PROTEIN 7.6 GM/DL (6.4-8.2)
[2020-07-08] MEDS: HumaLOG INSULIN (NovoLOG) PER UNIT SC SCH ×4 (07:30→21:00)
[2020-07-08] MEDS: APIXABAN 5 MG TAB (ELIQUIS) PO SCH ×2 (09:30→21:25)
[2020-07-08] MEDS: DIGOXIN 0.25 MG TAB PO SCH (09:30)
[2020-07-08] MEDS: ATORVASTATIN 20 MG TAB PO SCH (09:30)
[2020-07-08] MEDS: VANICREAM MOISTURIZING SKIN CREAM 113GM TUBE TOP SCH ×2 (09:30→21:25)
[2020-07-08] MEDS: CLOPIDOGREL 75 MG TAB PO SCH (09:30)
[2020-07-08] MEDS: OMEPRAZOLE 20 MG CAP PO SCH ×2 (09:30→21:25)
[2020-07-08] MEDS: atenoloL 25 MG TAB PO SCH (09:31)
--- NOTE | 2020-07-08 13:53 | IPNPDOC ---
Date Seen The patient was seen on 07/08/20. Progress Note SUBJECTIVE: No events overnight. Confused to day, time, year, reason for admission to hospital. Discussed likely placement with patient but did not seem he understood after reiterating why over 10 mins. No neuro deficits. Denies chest pain, shortness of breath. OBJECTIVE: PHYSICAL EXAMINATION: VS: Stable CONSTITUTIONAL: dissheveled, obese male, no acute distress, resting comfortably, AAO x 1 (does not know time, day, year or reason he is here ) EYES: PERRLA, EOM intact HENT, MOUTH: Normocephalic, atraumatic, moist mucous membranes, poor dental hygiene NECK: SUPPLE, no JVD, no lymphadenopathy, no carotid bruit CV: bradycardic (baseline), sinus rhythm, S1S2 normal, no murmurs/rubs/gallops RESPIRATORY: Clear to auscultation bilaterally, no rales/rhonchi/wheezes GI: obese abd, BS positive in 4 quadrants, soft, nontender, nondistended, no rebound or guarding, no organomegaly : Deferred MUSCULOSKELETAL: Normal ROM. 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 Small focus of restricted diffusion within the right thalamus, concerning for acute infarct. 2. 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 Carotid US: No evidence of significant stenosis right or left internal carotid artery. CXR: neg CT head: Atrophy and encephalomalacia consistent with old infarction, no acute intracranial hemorrhage, infarction, or mass/mass effect. ASSESSMENT: 50-year-old male with past medical history of CVA 07/2018, hypertension, GERD, questionable vasculitis of brain admitted for further evaluation of AMS r/o TIA vs. evolving CVA. PLAN: Right thalamus CVA, acute -Likely cause of continued AMS, still confused as to reason, time, meds, etc. At baseline he was doing all chores, cooking, helping care for his elderly mother in their home. 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 -Hx of CVA and TIA in past -Lipid panel unremarkable -Per neuro, explore cardiac causes of emboli. -Per conversation with Dr. Reid (cardiology), he does not think that patient will likely require a EMANUEL at this time, as he is high risk and it may require intubation. TTE done and results are pending. It is likely that the patient was noncompliant with his home medications and this may be the reason for new CVA- not taking Plavix, eliquis, statin in presence of significant vascular disease. Prior EMANUEL cancelled. -At this time the patient lacks the competency to return to his prior living situation independently. He cannot remember the most basic of information about his history, life. Far from his baseline. Per neuro, this is stroke related and may/may not return. He will likely need placement prior to discharge. -C/w statin, plavix and eliquis. -PT/OT Sinus bradycardia, chronic per cardiology -HR slightly improved to 60-62 -C/w BB 25 mg PO daily with holding parameters -ECG similar when compared to prior on file -Discussed case with Dr. 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 Discussed case in detail with neurology, Dr. Guthrie as well as Dr. Reid (cardiology). Discussed with PFS and explained the situation to them- this patient was independent previously, caring for his elderly mother and helping her with activities of daily living. With the degree of confusion he is displaying, he will likely not be able to take care of himself, let alone an elderly mother. Will look more into with PFS after holiday weekend. VS, I&O, 24H, Fishbone Vital Signs/I&O Vital Signs Date Time Temp Pulse Resp B/P (MAP) Pulse Ox O2 Delivery O2 Flow Rate FiO2 07/08/20 09:31 60 148/74 07/08/20 06:00 97.8 18 97 Room Air I&O- Last 24 Hours up to 6 AM 07/08/20 06:00 Intake Total 1570 ml Output Total 0 ml Balance 1570 ml Laboratory Data 24H LABS Laboratory Tests 2 07/07/20 16:34: Bedside Glucose (Misc Panel) 80 07/07/20 19:51: Bedside Glucose (Misc Panel) 136H 07/08/20 05:48: Nucleated Red Blood Cells % (auto) 0.0, Anion Gap 4L, Glomerular Filtration Rate > 60.0, Calcium Level 8.4L, Total Bilirubin 1.0, Aspartate Amino Transf (AST/SGOT) 14, Alanine Aminotransferase (ALT/SGPT) 18, Alkaline Phosphatase 96, Total Protein 7.6, Albumin 2.9L, Albumin/Globulin Ratio 0.6 07/08/20 11:34: Bedside Glucose (Misc Panel) 98 CBC/BMP Laboratory Tests 07/08/20 05:48 Current Medications Current Medications Medications (Trade) Dose Ordered Sig/Dolores Route PRN Reason Start Time Stop Time Status Last Admin Dose Admin Apixaban (Eliquis) 5 mg BID PO 07/05/20 21:00 07/08/20 09:30 Aspirin (Ecotrin) 81 mg DAILY PO 07/06/20 09:00 07/07/20 15:42 DC 07/07/20 07:43 Atenolol (Tenormin) 25 mg DAILY PO 07/07/20 09:00 07/08/20 09:31 Atenolol (Tenormin) 50 mg DAILY PO 07/06/20 09:00 07/06/20 15:38 DC Atorvastatin Calcium (Lipitor) 80 mg DAILY PO 07/06/20 09:00 07/08/20 09:30 Clopidogrel Bisulfate (PLAVix) 75 mg DAILY PO 07/08/20 09:00 07/08/20 09:30 Clopidogrel Bisulfate (PLAVix) 75 mg DAILY PO 07/06/20 09:00 12/30/20 09:20 DC Dextrose (Dextrose 50%) 25 ml ASDIRECTED PRN IV SEE LABEL COMMENTS 07/05/20 14:45 Digoxin (Lanoxin) 0.25 mg DAILY PO 07/06/20 09:00 07/08/20 09:30 Emollient Cream (Vanicream) Apply to BLE BID TOP 07/05/20 21:15 07/08/20 09:30 Glucagon (Glucagon) 1 mg ASDIRECTED PRN SC SEE LABEL COMMENTS 07/05/20 14:45 Glucose (Glucose) 16 GM ASDIRECTED PRN PO SEE LABEL COMMENTS 07/05/20 14:45 Home Med (Med Rec Complete!) ASDIRECTED XX 07/05/20 16:30 07/05/20 16:35 DC Insulin Human Lispro (HumaLOG INSULIN) SEE PROTOCOL TABLE AC SC 07/05/20 17:30 Insulin Human Lispro (HumaLOG INSULIN) SEE PROTOCOL TABLE QHS SD 07/05/20 21:00 Omeprazole (PriLOSEC) 20 mg BID PO 07/05/20 21:00 07/08/20 09:30 Allergies Coded Allergies: No Known Drug Allergies (Verified Allergy, Unknown, 07/05/20) Fiordaliza Malhotra MD Jul 08, 2020 13:52
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
[2020-07-08] MEDS: NICOTINE 7 MG/24 HR TRANSDERMAL TD SCH (21:25)
[2020-07-08 22:00] VITALS: BP 128/65
[2020-07-09 06:00] VITALS: BP 129/65
[2020-07-09] MEDS: HumaLOG INSULIN (NovoLOG) PER UNIT SC SCH ×4 (07:30→21:00)
[2020-07-09] MEDS ORDERED: NICOTINE 7 MG/24 HR TRANSDERMAL TD SCH (09:00)
[2020-07-09] MEDS: DIGOXIN 0.25 MG TAB PO SCH (09:00)
[2020-07-09] MEDS: atenoloL 25 MG TAB PO SCH (09:00)
[2020-07-09 09:38] LABS: HEMATOCRIT 47.9 % (42.0-52.0); HEMOGLOBIN 15.3 g/dl (13.5-17.5); MEAN CORPUSCULAR HGB CONC 31.9 g/dl (32.0-36.5); MEAN CORPUSCULAR VOLUME 97.2 fl (80.0-96.0); PLATELET COUNT, AUTOMATED 233 10^3/uL (150-450); RED BLOOD COUNT 4.93 10^6/uL (4.30-6.10); WHITE BLOOD COUNT 7.4 10^3/uL (4.0-10.0)
[2020-07-09 10:07] LABS: ALBUMIN 2.9 GM/DL (3.2-5.2); ALT/SGPT 22 U/L (12-78); BILIRUBIN,TOTAL 1.2 MG/DL (0.2-1.0); BLOOD UREA NITROGEN 13 MG/DL (7-18); CALCIUM LEVEL 8.6 MG/DL (8.5-10.1); CARBON DIOXIDE LEVEL 30 MEQ/L (21-32); CHLORIDE LEVEL 103 MEQ/L (98-107); CREATININE FOR GFR 1.09 MG/DL (0.70-1.30); GLOMERULAR FILTRATION RATE > 60.0 (>56); GLUCOSE, FASTING 81 MG/DL (70-100); POTASSIUM SERUM 4.5 MEQ/L (3.5-5.1); SODIUM LEVEL 136 MEQ/L (136-145)
[2020-07-09] MEDS: NICOTINE 7 MG/24 HR TRANSDERMAL TD SCH (11:03)
[2020-07-09] MEDS: APIXABAN 5 MG TAB (ELIQUIS) PO SCH ×2 (11:04→21:55)
[2020-07-09] MEDS: CLOPIDOGREL 75 MG TAB PO SCH (11:04)
[2020-07-09] MEDS: ATORVASTATIN 20 MG TAB PO SCH (11:04)
[2020-07-09] MEDS: OMEPRAZOLE 20 MG CAP PO SCH ×2 (11:05→21:55)
[2020-07-09] MEDS: VANICREAM MOISTURIZING SKIN CREAM 113GM TUBE TOP SCH ×2 (11:12→21:56)
[2020-07-09 13:24] VITALS: BP 130/70
--- NOTE | 2020-07-09 15:03 | IPNPDOC ---
Date Seen The patient was seen on 07/09/20. Progress Note SUBJECTIVE: No events overnight. Does not remember his mother coming to see him in his room yesterday, cannot remember reason being in the hospital, time. Denies chest pain, shortness of breath. OBJECTIVE: PHYSICAL EXAMINATION: VS: Stable CONSTITUTIONAL: obese male, no acute distress, resting comfortably, AAO x 1 (does not know time, day, year or reason he is here ) EYES: PERRLA, EOM intact HENT, MOUTH: Normocephalic, atraumatic, moist mucous membranes, poor dental hygiene NECK: SUPPLE, no JVD, no lymphadenopathy, no carotid bruit CV: bradycardic (baseline), sinus rhythm, S1S2 normal, no murmurs/rubs/gallops RESPIRATORY: Clear to auscultation bilaterally, no rales/rhonchi/wheezes GI: obese abd, BS positive in 4 quadrants, soft, nontender, nondistended, no rebound or guarding, no organomegaly : Deferred MUSCULOSKELETAL: Normal ROM. No cyanosis, clubbing, swelling, joint deformity, extremity edema INTEGUMENTARY: Intact, no rashes, no lesions, no erythema NEUROLOGIC: Cranial Nerves II-XII are intact, no focal deficits LABORATORY DATA: Please see below IMAGING: Echocardiogram: Emt I/85 pending MRI brain: 1. Small focus of restricted diffusion within the right thalamus, concerning for acute infarct. 2. 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 Carotid US: No evidence of significant stenosis right or left internal carotid artery. CXR: neg CT head: Atrophy and encephalomalacia consistent with old infarction, no acute intracranial hemorrhage, infarction, or mass/mass effect. ASSESSMENT: 50-year-old male with past medical history of CVA 07/2018, hypertension, GERD, questionable vasculitis of brain admitted for further evaluation of AMS r/o TIA vs. evolving CVA. PLAN: Right thalamus CVA, acute -Likely cause of continued AMS, still extremely confused. At baseline he was doi ng all chores, cooking, helping care for his elderly mother in their home. 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 -Hx of CVA and TIA -Lipid panel unremarkable -Per neuro, explore cardiac causes of emboli. -Per conversation with Dr. Reid (cardiology), he does not think that patient will likely require a EMANUEL at this time, as he is high risk and it may require intubation. TTE done and results are pending. It is likely that the patient was noncompliant with his home medications and this may be the reason for new CVA- not taking Plavix, eliquis, statin in presence of significant vascular disease. -At this time the patient lacks the competency to return to his prior living situation independently. He cannot remember the most basic of information about his history, life. Far from his baseline. Per neuro, this is stroke related and may/may not return. He will likely need placement prior to discharge. -C/w statin, plavix and eliquis. -PT/OT Sinus bradycardia, chronic per cardiology -HR slightly improved to 60-62 -C/w BB 25 mg PO daily with holding parameters -ECG similar when compared to prior on file -Discussed case with Dr. 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 Discussed case in detail with neurology, Dr. Guthrie as well as Dr. Reid (cardiology). Discussed with PFS and explained the situation to them- this patient was independent previously, caring for his elderly mother and helping her with activities of daily living. With the degree of confusion he is displaying, he will likely not be able to take care of himself, let alone an elderly mother. Will look more into with PFS after holiday weekend. VS, I&O, 24H, Fishbone Vital Signs/I&O Vital Signs Date Time Temp Pulse Resp B/P (MAP) Pulse Ox O2 Delivery O2 Flow Rate FiO2 07/09/20 13:24 98.4 56 16 130/70 (90) 94 Room Air I&O- Last 24 Hours up to 6 AM 07/09/20 06:00 Intake Total 1500 ml Balance 1500 ml Laboratory Data 24H LABS Laboratory Tests 2 07/08/20 16:48: Bedside Glucose (Misc Panel) 122H 07/08/20 19:48: Bedside Glucose (Misc Panel) 129H 07/09/20 07:31: Bedside Glucose (Misc Panel) 92 07/09/20 09:25: Nucleated Red Blood Cells % (auto) 0.0, Anion Gap 3L, Glomerular Filtration Rate > 60.0, Calcium Level 8.6, Total Bilirubin 1.2H, Aspartate Amino Transf (AST/SGOT) 44H, Alanine Aminotransferase (ALT/SGPT) 22, Alkaline Phosphatase 95, Total Protein 8.0, Albumin 2.9L, Albumin/Globulin Ratio 0.6 07/09/20 11:34: Bedside Glucose (Misc Panel) 92 CBC/BMP Laboratory Tests 07/09/20 09:25 Current Medications Current Medications Medications (Trade) Dose Ordered Sig/Dolores Route PRN Reason Start Time Stop Time Status Last Admin Dose Admin Apixaban (Eliquis) 5 mg BID PO 07/05/20 21:00 07/09/20 11:04 Aspirin (Ecotrin) 81 mg DAILY PO 07/06/20 09:00 07/07/20 15:42 DC 07/07/20 07:43 Atenolol (Tenormin) 25 mg DAILY PO 07/07/20 09:00 07/08/20 09:31 Atenolol (Tenormin) 50 mg DAILY PO 07/06/20 09:00 07/06/20 15:38 DC Atorvastatin Calcium (Lipitor) 80 mg DAILY PO 07/06/20 09:00 07/09/20 11:04 Clopidogrel Bisulfate (PLAVix) 75 mg DAILY PO 07/08/20 09:00 07/09/20 11:04 Clopidogrel Bisulfate (PLAVix) 75 mg DAILY PO 07/06/20 09:00 07/06/20 09:20 DC Dextrose (Dextrose 50%) 25 ml ASDIRECTED PRN IV SEE LABEL COMMENTS 07/05/20 14:45 Digoxin (Lanoxin) 0.25 mg DAILY PO 07/06/20 09:00 07/08/20 09:30 Emollient Cream (Vanicream) Apply to BLE BID TOP 07/05/20 21:15 07/09/20 11:12 Glucagon (Glucagon) 1 mg ASDIRECTED PRN SC SEE LABEL COMMENTS 07/05/20 14:45 Glucose (Glucose) 16 GM ASDIRECTED PRN PO SEE LABEL COMMENTS 07/05/20 14:45 Home Med (Med Rec Complete!) ASDIRECTED XX 07/05/20 16:30 07/05/20 16:35 DC Insulin Human Lispro (HumaLOG INSULIN) SEE PROTOCOL TABLE AC SC 07/05/20 17:30 07/08/20 17:56 Insulin Human Lispro (HumaLOG INSULIN) SEE PROTOCOL TABLE QHS SC 07/05/20 21:00 Nicotine (Nicoderm Cq 7 Mg) 1 patch DAILY TD 07/08/20 21:15 07/09/20 11:03 Nicotine (Nicoderm Cq 7 Mg) 1 patch DAILY TD 07/09/20 09:00 07/08/20 21:05 DC Omeprazole (PriLOSEC) 20 mg BID PO 07/05/20 21:00 07/09/20 11:05 Allergies Coded Allergies: No Known Drug Allergies (Verified Allergy, Unknown, 07/05/20) Fiordaliza Malhotra MD Jul 09, 2020 15:03
[2020-07-09 22:00] VITALS: BP 133/70
[2020-07-10 06:00] VITALS: BP 134/63
[2020-07-10 06:53] LABS: HEMATOCRIT 49.5 % (42.0-52.0); MEAN CORPUSCULAR HEMOGLOBIN 31.5 pg (27.0-33.0); MEAN CORPUSCULAR HGB CONC 32.3 g/dl (32.0-36.5); MEAN CORPUSCULAR VOLUME 97.4 fl (80.0-96.0); PLATELET COUNT, AUTOMATED 217 10^3/uL (150-450); RED BLOOD COUNT 5.08 10^6/uL (4.30-6.10)
[2020-07-10 07:24] LABS: ALBUMIN 3.1 GM/DL (3.2-5.2); ALT/SGPT 25 U/L (12-78); BILIRUBIN,TOTAL 1.1 MG/DL (0.2-1.0); BLOOD UREA NITROGEN 14 MG/DL (7-18); CALCIUM LEVEL 8.9 MG/DL (8.5-10.1); CARBON DIOXIDE LEVEL 32 MEQ/L (21-32); CHLORIDE LEVEL 102 MEQ/L (98-107); CREATININE FOR GFR 1.12 MG/DL (0.70-1.30); GLOMERULAR FILTRATION RATE > 60.0 (>56); GLUCOSE, FASTING 86 MG/DL (70-100); POTASSIUM SERUM 4.1 MEQ/L (3.5-5.1); SODIUM LEVEL 138 MEQ/L (136-145); TOTAL PROTEIN 7.5 GM/DL (6.4-8.2)
[2020-07-10] MEDS: HumaLOG INSULIN (NovoLOG) PER UNIT SC SCH ×4 (07:30→21:00)
[2020-07-10] MEDS: DIGOXIN 0.25 MG TAB PO SCH (09:00)
[2020-07-10] MEDS: atenoloL 25 MG TAB PO SCH (09:00)
[2020-07-10] MEDS: NICOTINE 7 MG/24 HR TRANSDERMAL TD SCH (11:07)
[2020-07-10] MEDS: ATORVASTATIN 20 MG TAB PO SCH (11:07)
[2020-07-10] MEDS: CLOPIDOGREL 75 MG TAB PO SCH (11:07)
[2020-07-10] MEDS: APIXABAN 5 MG TAB (ELIQUIS) PO SCH ×2 (11:08→20:57)
[2020-07-10] MEDS: OMEPRAZOLE 20 MG CAP PO SCH ×2 (11:08→20:57)
[2020-07-10] MEDS: VANICREAM MOISTURIZING SKIN CREAM 113GM TUBE TOP SCH ×2 (11:10→20:59)
[2020-07-10 13:21] VITALS: BP 144/71
--- NOTE | 2020-07-10 13:35 | IPNPDOC ---
Date Seen The patient was seen on 07/10/20. Progress Note SUBJECTIVE: No events overnight. Does not remember his mother daily, does not remember that his mother is even in the hospital. Short term memory has not improved since admission, poor longterm memory also. Denies chest pain, shortness of breath. OBJECTIVE: PHYSICAL EXAMINATION: VS: Stable CONSTITUTIONAL: obese male, no acute distress, resting comfortably, AAO x 1 (does not know time, day, year or reason he is here ) EYES: PERRLA, EOM intact HENT, MOUTH: Normocephalic, atraumatic, moist mucous membranes, poor dental hygiene NECK: SUPPLE, no JVD, no lymphadenopathy, no carotid bruit CV: bradycardic (baseline), sinus rhythm, S1S2 normal, no murmurs/rubs/gallops RESPIRATORY: Clear to auscultation bilaterally, no rales/rhonchi/wheezes GI: obese abd, BS positive in 4 quadrants, soft, nontender, nondistended, no rebound or guarding, no organomegaly : Deferred MUSCULOSKELETAL: Normal ROM. No cyanosis, clubbing, swelling, joint deformity, extremity edema INTEGUMENTARY: Intact, no rashes, no lesions, no erythema NEUROLOGIC: Cranial Nerves II-XII are intact, no focal deficits LABORATORY DATA: Please see below IMAGING: Echocardiogram: Trans Router pending MRI brain: 1. Small focus of restricted diffusion within the right thalamus, concerning for acute infarct. 2. 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 Carotid US: No evidence of significant stenosis right or left internal carotid artery. CXR: neg CT head: Atrophy and encephalomalacia consistent with old infarction, no acute intracranial hemorrhage, infarction, or mass/mass effect. ASSESSMENT: 50-year-old male with past medical history of CVA 07/2018, hypertension, GERD, questionable vasculitis of brain admitted for further evaluation of AMS r/o TIA vs. evolving CVA. PLAN: Right thalamus CVA, acute with confusion/forgetfulness -Likely cause of continued AMS, still extremely confused. At baseline he was doing all chores, cooking, helping care for his elderly mother in their home. 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 -Hx of CVA and TIA -Lipid panel unremarkable -Per neuro, explore cardiac causes of emboli. -Per conversation with Dr. Reid (cardiology), he does not think that patient will likely require a EMANUEL at this time, as he is high risk and it may require intubation. TTE done and results are pending. It is likely that the patient was noncompliant with his home medications and this may be the reason for new CVA- not taking Plavix, eliquis, statin in presence of significant vascular disease. -At this time the patient lacks the competency to return to his prior living situation independently. He cannot remember the most basic of information about his history, life. Far from his baseline. Per neuro, this is stroke related and may/may not return. He will likely need placement prior to discharge. -C/w statin, plavix and eliquis. -PT/OT Sinus bradycardia, chronic per cardiology -HR slightly improved to 60-62 -C/w BB 25 mg PO daily with holding parameters -ECG similar when compared to prior on file -Discussed case with Dr. 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 Discussed case in detail with neurology, Dr. Guthrie as well as Dr. Reid (cardiology). Discussed with PFS and explained the situation to them- this patient was independent previously, caring for his elderly mother and helping her with activities of daily living. With the degree of confusion he is displaying, he will likely not be able to take care of himself, let alone an elderly mother. Will look more into with PFS after holiday weekend. VS, I&O, 24H, Fishbone Vital Signs/I&O Vital Signs Date Time Temp Pulse Resp B/P (MAP) Pulse Ox O2 Delivery O2 Flow Rate FiO2 07/10/20 13:21 98.1 56 16 144/71 (95) 98 Room Air I&O- Last 24 Hours up to 6 AM 07/10/20 06:00 Intake Total 400 ml Balance 400 ml Laboratory Data 24H LABS Laboratory Tests 2 07/09/20 16:35: Bedside Glucose (Misc Panel) 97 07/09/20 21:15: Bedside Glucose (Misc Panel) 118H 07/10/20 06:29: Nucleated Red Blood Cells % (auto) 0.0, Anion Gap 4L, Glomerular Filtration Rate > 60.0, Calcium Level 8.9, Total Bilirubin 1.1H, Aspartate Amino Transf (AST/ SGOT) 22, Alanine Aminotransferase (ALT/SGPT) 25, Alkaline Phosphatase 102, Total Protein 7.5, Albumin 3.1L, Albumin/Globulin Ratio 0.7 07/10/20 12:09: Bedside Glucose (Misc Panel) 83 CBC/BMP Laboratory Tests 07/10/20 06:29 Current Medications Current Medications Medications (Trade) Dose Ordered Sig/Dolores Route PRN Reason Start Time Stop Time Status Last Admin Dose Admin Apixaban (Eliquis) 5 mg BID PO 07/05/20 21:00 07/10/20 11:08 Aspirin (Ecotrin) 81 mg DAILY PO 07/06/20 09:00 07/07/20 15:42 DC 07/07/20 07:43 Atenolol (Tenormin) 25 mg DAILY PO 07/07/20 09:00 07/08/20 09:31 Atenolol (Tenormin) 50 mg DAILY PO 07/06/20 09:00 07/06/20 15:38 DC Atorvastatin Calcium (Lipitor) 80 mg DAILY PO 07/06/20 09:00 07/10/20 11:07 Clopidogrel Bisulfate (PLAVix) 75 mg DAILY PO 07/08/20 09:00 07/10/20 11:07 Clopidogrel Bisulfate (PLAVix) 75 mg DAILY PO 07/06/20 09:00 07/06/20 09:20 DC Dextrose (Dextrose 50%) 25 ml ASDIRECTED PRN IV SEE LABEL COMMENTS 07/05/20 14:45 Digoxin (Lanoxin) 0.25 mg DAILY PO 07/06/20 09:00 07/08/20 09:30 Emollient Cream (Vanicream) Apply to BLE BID TOP 07/05/20 21:15 07/10/20 11:10 Glucagon (Glucagon) 1 mg ASDIRECTED PRN SC SEE LABEL COMMENTS 07/05/20 14:45 Glucose (Glucose) 16 GM ASDIRECTED PRN PO SEE LABEL COMMENTS 07/05/20 14:45 Home Med (Med Rec Complete!) ASDIRECTED XX 07/05/20 16:30 07/05/20 16:35 DC Insulin Human Lispro (HumaLOG INSULIN) SEE PROTOCOL TABLE AC SC 07/05/20 17:30 07/08/20 17:56 Insulin Human Lispro (HumaLOG INSULIN) SEE PROTOCOL TABLE QHS SC 07/05/20 21:00 Nicotine (Nicoderm Cq 7 Mg) 1 patch DAILY TD 07/08/20 21:15 07/10/20 11:07 Nicotine (Nicoderm Cq 7 Mg) 1 patch DAILY TD 07/09/20 09:00 07/08/20 21:05 DC Omeprazole (PriLOSEC) 20 mg BID PO 07/05/20 21:00 07/10/20 11:08 Allergies Coded Allergies: No Known Drug Allergies (Verified Allergy, Unknown, 07/05/20) Fiordaliza Malhotra MD Jul 10, 2020 13:35
[2020-07-10 22:00] VITALS: BP 139/76
[2020-07-11 06:00] VITALS: BP 138/83
[2020-07-11 07:04] LABS: HEMATOCRIT 51.1 % (42.0-52.0); HEMOGLOBIN 16.5 g/dl (13.5-17.5); MEAN CORPUSCULAR HEMOGLOBIN 31.3 pg (27.0-33.0); MEAN CORPUSCULAR HGB CONC 32.3 g/dl (32.0-36.5); PLATELET COUNT, AUTOMATED 245 10^3/uL (150-450); RED BLOOD COUNT 5.27 10^6/uL (4.30-6.10); WHITE BLOOD COUNT 8.4 10^3/uL (4.0-10.0)
[2020-07-11] MEDS: HumaLOG INSULIN (NovoLOG) PER UNIT SC SCH ×4 (07:30→21:00)
[2020-07-11 07:34] LABS: BLOOD UREA NITROGEN 15 MG/DL (7-18); CALCIUM LEVEL 8.9 MG/DL (8.5-10.1); CARBON DIOXIDE LEVEL 30 MEQ/L (21-32); CHLORIDE LEVEL 102 MEQ/L (98-107); CREATININE FOR GFR 1.13 MG/DL (0.70-1.30); GLOMERULAR FILTRATION RATE > 60.0 (>56); GLUCOSE, FASTING 92 MG/DL (70-100); SODIUM LEVEL 139 MEQ/L (136-145)
[2020-07-11] MEDS: CLOPIDOGREL 75 MG TAB PO SCH (07:46)
[2020-07-11] MEDS: DIGOXIN 0.25 MG TAB PO SCH (07:46)
[2020-07-11] MEDS: APIXABAN 5 MG TAB (ELIQUIS) PO SCH ×2 (07:46→20:02)
[2020-07-11] MEDS: atenoloL 25 MG TAB PO SCH (07:46)
[2020-07-11] MEDS: OMEPRAZOLE 20 MG CAP PO SCH ×2 (07:46→20:02)
[2020-07-11] MEDS: ATORVASTATIN 20 MG TAB PO SCH (07:47)
[2020-07-11] MEDS: NICOTINE 7 MG/24 HR TRANSDERMAL TD SCH (08:47)
[2020-07-11] MEDS: VANICREAM MOISTURIZING SKIN CREAM 113GM TUBE TOP SCH ×2 (08:48→20:03)
[2020-07-11 14:00] VITALS: BP 122/70
--- NOTE | 2020-07-11 16:17 | IPNPDOC ---
Date Seen The patient was seen on 07/11/20. Progress Note SUBJECTIVE: No events overnight. Still does not remember his mother coming to his room daily, cannot recall being admitted to the hospital, does not remember who I am and I have seen him daily since admission. He became very tearful with me today and says "Just put me in a coffin." Denies chest pain, shortness of breath. OBJECTIVE: PHYSICAL EXAMINATION: VS: Stable CONSTITUTIONAL: obese male, no acute distress, resting comfortably, AAO x 1 (knows self does not know time, day, year or reason he is here ) EYES: PERRLA, EOM intact HENT, MOUTH: Normocephalic, atraumatic, moist mucous membranes, poor dental hygiene NECK: SUPPLE, no JVD, no lymphadenopathy, no carotid bruit CV: bradycardic (baseline), sinus rhythm, S1S2 normal, no murmurs/rubs/gallops RESPIRATORY: Clear to auscultation bilaterally, no rales/rhonchi/wheezes GI: obese abd, BS positive in 4 quadrants, soft, nontender, nondistended, no rebound or guarding, no organomegaly : Deferred MUSCULOSKELETAL: Normal ROM. 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 Small focus of restricted diffusion within the right thalamus, concerning for acute infarct. 2. 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 Carotid US: No evidence of significant stenosis right or left internal carotid artery. CXR: neg CT head: Atrophy and encephalomalacia consistent with old infarction, no acute intracranial hemorrhage, infarction, or mass/mass effect. ASSESSMENT: 50-year-old male with past medical history of CVA 07/2018, hypertension, GERD, questionable vasculitis of brain admitted for further evaluation of AMS r/o TIA vs. evolving CVA. PLAN: Right thalamus CVA, acute with confusion/forgetfulness. -Hx of CVA and TIA, on testosterone o/p which can create hypercoaguable state. Also not believed to have been compliant with home medications. -Likely cause of continued AMS, still extremely confused. At baseline he was doing all chores, cooking, helping care for his elderly mother in their home. 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 -Lipid panel unremarkable -Echo done 07/05/20 -Per conversation with Dr. Reid (cardiology), he does not think that patient will likely require a EMANUEL at this time, as he is high risk and it may require intubation. TTE done and results are pending. It is likely that the patient was noncompliant with his home medications and this may be the reason for new CVA- not taking Plavix, eliquis, statin in presence of significant vascular disease. -At this time the patient lacks the competency to return to his prior living situation independently. He cannot remember the most basic of information about his history, life. Far from his baseline. Per Neuro who has evaluated this admission, this is stroke related and may/may not return. He will likely need placement prior to discharge. -C/w statin, plavix and eliquis. -ST to continue 3-5x/week, will need placement Sinus bradycardia, chronic per cardiology -HR slightly improved to 60-62 -C/w BB 25 mg PO daily with holding parameters -ECG similar when compared to prior on file -Discussed case with Dr. 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 Discussed case in detail with neurology, Dr. Rigoberto roberson as well as Dr. Reid (cardiology). Discussed with PFS and explained the situation to them- this patient was independent previously, caring for his elderly mother and helping her with activities of daily living. With the degree of confusion he is displaying, he will likely not be able to take care of himself, let alone an elderly mother. May require guardianship. Encouraged PFS to reach out to patient's sister Martina. Making ALC today. VS, I&O, 24H, Fishbone Vital Signs/I&O Vital Signs Date Time Temp Pulse Resp B/P (MAP) Pulse Ox O2 Delivery O2 Flow Rate FiO2 07/11/20 14:00 97.6 60 19 122/70 (87) 95 Room Air I&O- Last 24 Hours up to 6 AM 07/11/20 06:00 Intake Total 1600 ml Balance 1600 ml Laboratory Data 24H LABS Laboratory Tests 2 07/10/20 16:24: Bedside Glucose (Misc Panel) 118H 07/10/20 20:41: Bedside Glucose (Misc Panel) 131H 07/11/20 06:49: Nucleated Red Blood Cells % (auto) 0.0, Anion Gap 7L, Glomerular Filtration Rate > 60.0, Calcium Level 8.9 07/11/20 11:33: Bedside Glucose (Misc Panel) 85 CBC/BMP Laboratory Tests 07/11/20 06:49 Current Medications Current Medications Medications (Trade) Dose Ordered Sig/Dolores Route PRN Reason Start Time Stop Time Status Last Admin Dose Admin Apixaban (Eliquis) 5 mg BID PO 07/05/20 21:00 07/11/20 07:46 Aspirin (Ecotrin) 81 mg DAILY PO 07/06/20 09:00 07/07/20 15:42 DC 07/07/20 07:43 Atenolol (Tenormin) 25 mg DAILY PO 07/07/20 09:00 07/11/20 07:46 Atenolol (Tenormin) 50 mg DAILY PO 07/06/20 09:00 07/06/20 15:38 DC Atorvastatin Calcium (Lipitor) 80 mg DAILY PO 07/06/20 09:00 07/11/20 07:47 Clopidogrel Bisulfate (PLAVix) 75 mg DAILY PO 07/08/20 09:00 07/11/20 07:46 Clopidogrel Bisulfate (PLAVix) 75 mg DAILY PO 07/06/20 09:00 07/06/20 09:20 DC Dextrose (Dextrose 50%) 25 ml ASDIRECTED PRN IV SEE LABEL COMMENTS 07/05/20 14:45 Digoxin (Lanoxin) 0.25 mg DAILY PO 07/06/20 09:00 07/11/20 07:46 Emollient Cream (Vanicream) Apply to BLE BID TOP 07/05/20 21:15 07/11/20 08:48 Glucagon (Glucagon) 1 mg ASDIRECTED PRN SC SEE LABEL COMMENTS 07/05/20 14:45 Glucose (Glucose) 16 GM ASDIRECTED PRN PO SEE LABEL COMMENTS 07/05/20 14:45 Home Med (Med Rec Complete!) ASDIRECTED XX 07/05/20 16:30 07/05/20 16:35 DC Insulin Human Lispro (HumaLOG INSULIN) SEE PROTOCOL TABLE AC SC 07/05/20 17:30 07/08/20 17:56 Insulin Human Lispro (HumaLOG INSULIN) SEE PROTOCOL TABLE QHS SC 07/05/20 21:00 Nicotine (Nicoderm Cq 7 Mg) 1 patch DAILY TD 07/08/20 21:15 07/11/20 08:47 Nicotine (Nicoderm Cq 7 Mg) 1 patch DAILY TD 07/09/20 09:00 07/08/20 21:05 DC Omeprazole (PriLOSEC) 20 mg BID PO 07/05/20 21:00 07/11/20 07:46 Allergies Coded Allergies: No Known Drug Allergies (Verified Allergy, Unknown, 07/05/20) Fiordaliza Malhotra MD Jul 11, 2020 16:17
[2020-07-11] MEDS ORDERED: ACETAMINOPHEN TAB 650MG DOSE (2X325MG) PO PRN (18:00)
[2020-07-11 22:00] VITALS: BP 121/5
[2020-07-12 06:00] VITALS: BP 132/74
[2020-07-12 06:22] LABS: HEMATOCRIT 51.1 % (42.0-52.0); HEMOGLOBIN 16.1 g/dl (13.5-17.5); MEAN CORPUSCULAR HEMOGLOBIN 30.6 pg (27.0-33.0); MEAN CORPUSCULAR HGB CONC 31.5 g/dl (32.0-36.5); MEAN CORPUSCULAR VOLUME 97.1 fl (80.0-96.0); PLATELET COUNT, AUTOMATED 238 10^3/uL (150-450); RED BLOOD COUNT 5.26 10^6/uL (4.30-6.10)
[2020-07-12 07:04] LABS: BLOOD UREA NITROGEN 14 MG/DL (7-18); CALCIUM LEVEL 8.9 MG/DL (8.5-10.1); CARBON DIOXIDE LEVEL 31 MEQ/L (21-32); CHLORIDE LEVEL 103 MEQ/L (98-107); GLOMERULAR FILTRATION RATE > 60.0 (>56); GLUCOSE, FASTING 90 MG/DL (70-100); POTASSIUM SERUM 3.9 MEQ/L (3.5-5.1); SODIUM LEVEL 137 MEQ/L (136-145)
[2020-07-12] MEDS: HumaLOG INSULIN (NovoLOG) PER UNIT SC SCH (07:30)
[2020-07-12] MEDS: DIGOXIN 0.25 MG TAB PO SCH (09:00)
[2020-07-12] MEDS: NICOTINE 7 MG/24 HR TRANSDERMAL TD SCH (09:08)
[2020-07-12] MEDS: ATORVASTATIN 20 MG TAB PO SCH (09:08)
[2020-07-12] MEDS: OMEPRAZOLE 20 MG CAP PO SCH ×2 (09:08→20:05)
[2020-07-12] MEDS: CLOPIDOGREL 75 MG TAB PO SCH (09:08)
[2020-07-12] MEDS: APIXABAN 5 MG TAB (ELIQUIS) PO SCH ×2 (09:08→20:05)
[2020-07-12] MEDS: atenoloL 25 MG TAB PO SCH (09:09)
[2020-07-12] MEDS: VANICREAM MOISTURIZING SKIN CREAM 113GM TUBE TOP SCH ×2 (09:11→20:05)
[2020-07-13 06:00] VITALS: BP 136/79
[2020-07-13] MEDS: APIXABAN 5 MG TAB (ELIQUIS) PO SCH ×2 (08:46→22:00)
[2020-07-13] MEDS: DIGOXIN 0.25 MG TAB PO SCH (08:48)
[2020-07-13] MEDS: CLOPIDOGREL 75 MG TAB PO SCH (08:49)
[2020-07-13] MEDS: atenoloL 25 MG TAB PO SCH (08:49)
[2020-07-13] MEDS: OMEPRAZOLE 20 MG CAP PO SCH ×2 (08:49→22:00)
[2020-07-13] MEDS: ATORVASTATIN 20 MG TAB PO SCH (08:49)
[2020-07-13] MEDS: NICOTINE 7 MG/24 HR TRANSDERMAL TD SCH (08:49)
[2020-07-13] MEDS: VANICREAM MOISTURIZING SKIN CREAM 113GM TUBE TOP SCH ×2 (08:50→22:01)
[2020-07-14 06:00] VITALS: BP 131/84
[2020-07-14] MEDS ORDERED: NICO7PA TD (07:36)
[2020-07-14] MEDS ORDERED: ATEN25TA PO (07:36)
[2020-07-14 09:00] VITALS: BP 141/74
[2020-07-14] MEDS: atenoloL 25 MG TAB PO SCH ×2 (09:00→09:40)
[2020-07-14] MEDS: CLOPIDOGREL 75 MG TAB PO SCH (09:39)
[2020-07-14] MEDS: OMEPRAZOLE 20 MG CAP PO SCH (09:39)
[2020-07-14] MEDS: APIXABAN 5 MG TAB (ELIQUIS) PO SCH (09:39)
[2020-07-14] MEDS: ATORVASTATIN 20 MG TAB PO SCH (09:39)
[2020-07-14] MEDS: NICOTINE 7 MG/24 HR TRANSDERMAL TD SCH (09:39)
[2020-07-14] MEDS: DIGOXIN 0.25 MG TAB PO SCH (09:39)
[2020-07-14] MEDS: VANICREAM MOISTURIZING SKIN CREAM 113GM TUBE TOP SCH (09:40)
--- NOTE | 2020-07-14 16:15 | DS.PDOC ---
Discharge Summary General Date of Admission Jul 05, 2020 at 14:42 Date of Discharge 07/14/20 Discharge Summary PROCEDURES PERFORMED DURING STAY: [None]. ADMITTING DIAGNOSES: #Right thalamus CVA, acute with confusion/forgetfulness. 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 atrial fibrillation COMPLICATIONS/CHIEF COMPLAINT: Altered Mental Status. HISTORY OF PRESENT ILLNESS: Patient is a 50-year-old male with past medical history of CVA 07/2018, hypertension, GERD, questionable vasculitis of brain, ? hx of atrial fib who presented to [facility] emergency room after being brought in by family for increased confusion. According to family his altered mental status began yesterday. He was more confused on that date and some events since yesterday. The patient was the only historian and was quite confused during our evaluation. He was unable to tell me the events of earlier today and yesterday which are being told to us was different from his baseline. He states that his mom lives with him. He denies chest pain, shortness of breath, fevers, chills, cough, weakness, swallowing difficulties, nausea, vomiting, diarrhea. He has no sick contacts. In ER, VS stable. WBC slightly elevated at 12K, all other labs unremarkable. CT head: Atrophy and encephalomalacia consistent with old infarction, no acute intracranial hemorrhage, infarction, or mass/mass effect. NIH stroke scale 0.5, low. He was confused on year and date, apparently this is not his baseline. He had no abnormality on neuro evaluation with motor or sensory. He admits to possibly being slightly more confused at baseline but states he mostly does not know the answer to the questions being asked because he doesn't "pay attention" all the time. Due to patient's history of CVA/TIA he was admitted for further evaluation of AMS r/o TIA vs. evolving CVA. HOSPITAL COURSE: #Right thalamus CVA, acute with confusion/forgetfulness. -Hx of CVA and TIA, on testosterone o/p which can create hypercoaguable state. Also not believed to have been compliant with home medications. -Likely cause of continued AMS, still extremely confused. At baseline he was doing all chores, cooking, helping care for his elderly mother in their home. 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 -Lipid panel unremarkable -Echo done 07/05/20 -Per conversation with Dr. Reid (cardiology), he does not think that patient will likely require a EMANUEL at this time, as he is high risk and it may require intubation. TTE done and results are pending. It is likely that the patient was noncompliant with his home medications and this may be the reason for new CVA- not taking Plavix, eliquis, statin in presence of significant vascular disease. -C/w statin, plavix and eliquis. #Sinus bradycardia, chronic per cardiology -Discussed case with Dr. 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 ALLERGIES: Please see below. PHYSICAL EXAMINATION ON DISCHARGE: VITAL SIGNS: Please see below. CONSTITUTIONAL: obese male, no acute distress, resting comfortably, AAO x 1 (knows self does not know time, day, year or reason he is here ) EYES: PERRLA, EOM intact HENT, MOUTH: Normocephalic, atraumatic, moist mucous membranes, poor dental hygiene NECK: SUPPLE, no JVD, no lymphadenopathy, no carotid bruit CV: bradycardic (baseline), sinus rhythm, S1S2 normal, no murmurs/rubs/gallops RESPIRATORY: Clear to auscultation bilaterally, no rales/rhonchi/wheezes GI: obese abd, BS positive in 4 quadrants, soft, nontender, nondistended, no rebound or guarding, no organomegaly : Deferred MUSCULOSKELETAL: Normal ROM. No cyanosis, clubbing, swelling, joint deformity, extremity edema INTEGUMENTARY: Intact, no rashes, no lesions, no erythema NEUROLOGIC: Cranial Nerves II-XII are intact, no focal deficits LABORATORY DATA: Please see below. DISPOSITION: Snf Other Custodial. DISCHARGE INSTRUCTIONS: 1. Follow up with PCP in 3-5 days DISCHARGE CONDITION: [Stable]. TIME SPENT ON DISCHARGE: 35 minutes. Vital Signs/I&Os Vital Signs Date Time Temp Pulse Resp B/P (MAP) Pulse Ox O2 Delivery O2 Flow Rate FiO2 07/14/20 09:39 70 07/14/20 09:00 141/74 07/14/20 06:00 97.7 18 96 Room Air I&O- Last 24 Hours up to 6 AM 07/14/20 06:00 Intake Total 1380 ml Output Total 0 ml Balance 1380 ml Discharge Medications Scheduled Apixaban (Eliquis) 5 Mg Tablet, 5 MG PO BID, (Reported) Atenolol (Atenolol) 25 Mg Tablet, 25 MG PO DAILY Atorvastatin Calcium (Atorvastatin Calcium) 80 Mg Tablet, 80 MG PO DAILY, (Reported) Clopidogrel Bisulfate (Plavix) 75 Mg Tablet, 75 MG PO DAILY, (Reported) Digoxin (Digox) 250 Mcg Tablet, 250 MCG PO DAILY, (Reported) Metformin HCl (Metformin HCl) 500 Mg Tablet, 500 MG PO BID, (Reported) Nicotine (Nicotine Patch) 7 Mg Patch.td24, 1 PATCH TD DAILY Omeprazole (Omeprazole) 20 Mg Tab, 20 MG PO BID, (Reported) Testosterone Cypionate (Testosterone Cypionate) 200 Mg/1 Ml Vial, 400 MG IM Q2WK, (Reported) Miscellaneous Medications [Med Rec Comment] , (Reported) LIST OBTAINED FROM PAPI, AND PT'S FAMILY Allergies Coded Allergies: No Known Drug Allergies (Verified Allergy, Unknown, 07/05/20) CHRISTIAN COOPER MD Jul 14, 2020 16:15
== END 2020-07-14 13:07 | DRG 45 ==
LOC: EDBD 12:18 → M ED 12:18 → M ED INP 14:42 → M MSPAV 18:27
PROVIDERS: ADMIT Internal Medicine; ATTEND Internal Medicine
DX: I63.532 Cerebral infarction due to unspecified occlusion or stenosis of left posterior cerebral artery (principal); I42.8 Other cardiomyopathies; I48.92 Unspecified atrial flutter; Z68.43 Body mass index [BMI] 50.0-59.9, adult; E66.01 Morbid (severe) obesity due to excess calories; I10 Essential (primary) hypertension; Z86.73 Personal history of transient ischemic attack (TIA), and cerebral infarction without residual deficits; K21.9 Gastro-esophageal reflux disease without esophagitis; F17.210 Nicotine dependence, cigarettes, uncomplicated; I25.10 Atherosclerotic heart disease of native coronary artery without angina pectoris; E78.5 Hyperlipidemia, unspecified; Z20.822 Contact with and (suspected) exposure to COVID-19; Z79.01 Long term (current) use of anticoagulants; Z79.84 Long term (current) use of oral hypoglycemic drugs; Z79.899 Other long term (current) drug therapy; E11.9 Type 2 diabetes mellitus without complications; Z91.14 Patient's other noncompliance with medication regimen; Z95.5 Presence of coronary angioplasty implant and graft

== ENCOUNTER → 2021-02-03 | Outpatient (CLI) | payer BC, OTHER ==
[~2021-02-03] MED LIST changes: +ATEN25TA PO; +CHLO25TA PO; +DONE10TA90 PO; +MED REC COMMENT; +METF-839 PO; +NICO7PA TD; +PANT40TA29 PO; +PLAV1TAB2 PO; +POTA1TAB21 PO; +TEST200I14 IM
== END ==
LOC: M LABSMTC 12:04
PROVIDERS: ATTEND Anesthesiology
DX: Z01.812 Encounter for preprocedural laboratory examination (principal); Z11.52 Encounter for screening for COVID-19

== ENCOUNTER → 2021-02-17 | Outpatient (CLI) | payer BC, OTHER | LOC: M LABSMTC 11:53 | PROVIDERS: ATTEND Anesthesiology | DX: Z01.812 Encounter for preprocedural laboratory examination (principal); Z20.822 Contact with and (suspected) exposure to COVID-19 ==

== ENCOUNTER 2021-02-22 10:08 | Day surgery (SDC) | payer BC, OTHER ==
[~2021-02-22] VITALS: Ht 180.3 cm; Wt 130.1 kg
[~2021-02-22 10:08] MED LIST changes: +LIDOCAINE 2% 100MG/5ML SDV (FOR ANES.) As Ordered ONE; +NS 1,000 ML IV ONE; +propofoL 200 MG/20 ML VIAL As Ordered ONE
[2021-02-22] MEDS ORDERED: LIDOCAINE 2% 100MG/5ML SDV (FOR ANES.) As Ordered ONE (11:26)
[2021-02-22] MEDS ORDERED: propofoL 200 MG/20 ML VIAL As Ordered ONE (11:27)
--- NOTE | 2021-02-22 11:40 | ROOR ---
Patient Name: Sandoval Cotton Procedure Date: 02/22/2021 11:24 AM Date of : 1970 Age: 50 Room: [facility] Gender: Male Note Status: Finalized Procedure: Upper GI endoscopy Indications: Weight loss Providers: DO Callie Vickers MD: Jas Erazo Md Requesting Provider: Medicines: Propofol per Anesthesia Complications: No immediate complications. Procedure: Pre-Anesthesia Assessment: - Prior to the procedure, a History and Physical was performed, and patient medications and allergies were reviewed. The patient is competent. The risks and benefits of the procedure and the sedation options and risks were discussed with the patient. All questions were answered and informed consent was obtained. Patient identification and proposed procedure were verified by the physician, the nurse, the anesthesiologist and the injection molding technician in the endoscopy suite. Mental Status Examination: alert and oriented. Airway Examination: normal oropharyngeal airway and neck mobility. Respiratory Examination: clear to auscultation. CV Examination: normal. Prophylactic Antibiotics: The patient does not require prophylactic antibiotics. Prior Anticoagulants: The patient has taken Eliquis (apixaban). ASA Grade Assessment: III - A patient with severe systemic disease. After reviewing the risks and benefits, the patient was deemed in satisfactory condition to undergo the procedure. The anesthesia plan was to use monitored anesthesia care (MAC). Immediately prior to administration of medications, the patient was re-assessed for adequacy to receive sedatives. The heart rate, respiratory rate, oxygen saturations, blood pressure, adequacy of pulmonary ventilation, and response to care were monitored throughout the procedure. The physical status of the patient was re-assessed after the procedure. The Endoscope was introduced through the mouth, and advanced to the second part of duodenum. The upper GI endoscopy was accomplished without difficulty. The patient tolerated the procedure well. Findings: The esophagus was normal. The stomach was normal. The examined duodenum was normal. Impression: - Normal esophagus. - Normal stomach. - Normal examined duodenum. - No specimens collected. Recommendation: - Patient has a contact number available for emergencies. The signs and symptoms of potential delayed complications were discussed with the patient. Return to normal activities tomorrow. Written discharge instructions were provided to the patient. - Return to my office PRN. Procedure Code(s): --- Professional --- 00417, Esophagogastroduodenoscopy, flexible, transoral; diagnostic, including collection of specimen(s) by brushing or washing, when performed (separate procedure) Diagnosis Code(s): --- Professional --- R63.4, Abnormal weight loss CPT copyright 2019 [employer]. All rights reserved. The codes documented in this report are preliminary and upon oil well shooter review may be revised to meet current compliance requirements. Khanh Valencia DO 02/22/2021 11:39:34 AM Electronically signed by Khanh Valencia DO Number of Addenda: 0 Note Initiated On: 02/22/2021 11:24 AM Estimated Blood Loss: Estimated blood loss was minimal.
--- NOTE | 2021-02-22 11:42 | ROOR ---
Patient Name: Sandoval Cotton Procedure Date: 02/22/2021 11:24 AM Date of : 1970 Age: 50 Room: [facility] Gender: Male Note Status: Finalized Procedure: Colonoscopy Indications: Weight loss Providers: DO Callie Vickers MD: Jas Erazo Md Requesting Provider: Medicines: Propofol per Anesthesia Complications: No immediate complications. Procedure: Pre-Anesthesia Assessment: - Prior to the procedure, a History and Physical was performed, and patient medications and allergies were reviewed. The patient is competent. The risks and benefits of the procedure and the sedation options and risks were discussed with the patient. All questions were answered and informed consent was obtained. Patient identification and proposed procedure were verified by the physician, the nurse, the anesthesiologist and the chemistry technician in the endoscopy suite. Mental Status Examination: alert and oriented. Airway Examination: normal oropharyngeal airway and neck mobility. Respiratory Examination: clear to auscultation. CV Examination: normal. Prophylactic Antibiotics: The patient does not require prophylactic antibiotics. Prior Anticoagulants: The patient has taken Eliquis (apixaban). ASA Grade Assessment: III - A patient with severe systemic disease. After reviewing the risks and benefits, the patient was deemed in satisfactory condition to undergo the procedure. The anesthesia plan was to use monitored anesthesia care (MAC). Immediately prior to administration of medications, the patient was re-assessed for adequacy to receive sedatives. The heart rate, respiratory rate, oxygen saturations, blood pressure, adequacy of pulmonary ventilation, and response to care were monitored throughout the procedure. The physical status of the patient was re-assessed after the procedure. The Colonoscope was introduced through the anus with the intention of advancing to the cecum. The scope was advanced to the rectum before the procedure was aborted. Medications were not given. The colonoscopy was technically difficult and complex due to unsatisfactory bowel prep. The patient tolerated the procedure well. Findings: Solid stool was found in the rectum, precluding visualization. Impression: - Stool in the rectum. - No specimens collected. Recommendation: - Patient has a contact number available for emergencies. The signs and symptoms of potential delayed complications were discussed with the patient. Return to normal activities tomorrow. Written discharge instructions were provided to the patient. - Repeat colonoscopy at next available appointment (within 3 months) because the bowel preparation was poor. Procedure Code(s): --- Professional --- 54448, 53, Colonoscopy, flexible; diagnostic, including collection of specimen(s) by brushing or washing, when performed (separate procedure) Diagnosis Code(s): --- Professional --- R63.4, Abnormal weight loss CPT copyright 2019 [employer]. All rights reserved. The codes documented in this report are preliminary and upon music teacher review may be revised to meet current compliance requirements. Khanh Valencia DO 02/22/2021 11:41:36 AM Electronically signed by Khanh Valencia DO Number of Addenda: 0 Note Initiated On: 02/22/2021 11:24 AM Estimated Blood Loss: Estimated blood loss: none.
[2021-02-22 12:00] VITALS: BP 104/54
== END 2021-02-22 12:15 | disposition home or self-care (01) ==
LOC: M OPP 10:08
PROVIDERS: ATTEND Surgery
DX: R63.4 Abnormal weight loss (principal); E11.9 Type 2 diabetes mellitus without complications; E78.5 Hyperlipidemia, unspecified; I48.91 Unspecified atrial fibrillation; F17.210 Nicotine dependence, cigarettes, uncomplicated; Z79.84 Long term (current) use of oral hypoglycemic drugs; Z79.899 Other long term (current) drug therapy

== ENCOUNTER 2021-04-19 07:57 | Day surgery (SDC) | payer MEDICARE, MEDICAID, BC, OTHER ==
[~2021-04-19] VITALS: Ht 177.8 cm; Wt 126.1 kg
--- NOTE | 2021-04-19 09:55 | ROOR ---
Patient Name: Sandoval Cotton Procedure Date: 04/19/2021 9:27 AM Date of : 1970 Age: 51 Room: [facility] Gender: Male Note Status: Finalized Procedure: Colonoscopy Indications: Family history of colon cancer in a first-degree relative before age 60 years, Weight loss Providers: Khanh Valencia DO Referring MD: 1. NO/Unknown PCP 1. NO/Unknown PCP, Admin., Khanh Valencia DO Requesting Provider: Medicines: Propofol per Anesthesia Complications: No immediate complications. Procedure: Pre-Anesthesia Assessment: - Prior to the procedure, a History and Physical was performed, and patient medications and allergies were reviewed. The patient is competent. The risks and benefits of the procedure and the sedation options and risks were discussed with the patient. All questions were answered and informed consent was obtained. Patient identification and proposed procedure were verified by the physician, the nurse, the check inspector and the auto technician in the endoscopy suite. Mental Status Examination: alert and oriented. Airway Examination: normal oropharyngeal airway and neck mobility. Respiratory Examination: clear to auscultation. CV Examination: normal. Prophylactic Antibiotics: The patient does not require prophylactic antibiotics. Prior Anticoagulants: The patient has taken no previous anticoagulant or antiplatelet agents. ASA Grade Assessment: III - A patient with severe systemic disease. After reviewing the risks and benefits, the patient was deemed in satisfactory condition to undergo the procedure. The anesthesia plan was to use monitored anesthesia care (MAC). Immediately prior to administration of medications, the patient was re-assessed for adequacy to receive sedatives. The heart rate, respiratory rate, oxygen saturations, blood pressure, adequacy of pulmonary ventilation, and response to care were monitored throughout the procedure. The physical status of the patient was re-assessed after the procedure. The Colonoscope was introduced through the anus and advanced to the cecum, identified by appendiceal orifice and ileocecal valve. The colonoscopy was performed without difficulty. The patient tolerated the procedure well. Findings: Non-bleeding internal hemorrhoids were found during retroflexion. The hemorrhoids were Grade II (internal hemorrhoids that prolapse but reduce spontaneously). Impression: - Non-bleeding internal hemorrhoids. - No specimens collected. Recommendation: - Patient has a contact number available for emergencies. The signs and symptoms of potential delayed complications were discussed with the patient. Return to normal activities tomorrow. Written discharge instructions were provided to the patient. - Patient has a contact number available for emergencies. The signs and symptoms of potential delayed complications were discussed with the patient. Return to normal activities tomorrow. Written discharge instructions were provided to the patient. - Return to my office PRN. - Repeat colonoscopy in 5-10 years for screening purposes. Procedure Code(s): --- Professional --- 26381, Colonoscopy, flexible; diagnostic, including collection of specimen(s) by brushing or washing, when performed (separate procedure) Diagnosis Code(s): --- Professional --- K64.1, Second degree hemorrhoids Z80.0, Family history of malignant neoplasm of digestive organs R63.4, Abnormal weight loss CPT copyright 2019 [employer]. All rights reserved. The codes documented in this report are preliminary and upon cd mixer review may be revised to meet current compliance requirements. Khanh Valencia DO 04/19/2021 9:55:24 AM Electronically signed by Khanh Valencia DO Number of Addenda: 0 Note Initiated On: 04/19/2021 9:27 AM Estimated Blood Loss: Estimated blood loss was minimal.
[2021-04-19 10:10] VITALS: BP 149/70
== END 2021-04-19 10:50 | disposition home or self-care (01) ==
LOC: M OPP 07:57
PROVIDERS: ATTEND Surgery
DX: Z12.11 Encounter for screening for malignant neoplasm of colon (principal); Z80.0 Family history of malignant neoplasm of digestive organs; K64.1 Second degree hemorrhoids; R63.4 Abnormal weight loss; Z79.899 Other long term (current) drug therapy

== ENCOUNTER 2021-05-17 12:19 | Day surgery (SDC) | payer MEDICARE, BC, OTHER, MEDICAID ==
[~2021-05-17] VITALS: Ht 180.3 cm; Wt 121.5 kg
[~2021-05-17 12:19] MED LIST changes: +ACET325C5 PO; +BACT800T5 PO; +BUPIVACAINE HCL 0.5% 30 ML VIAL As Ordered ONE; +LIDOCAINE 1% MDV 20ML VIAL As Ordered ONE; -LIDOCAINE 2% 100MG/5ML SDV (FOR ANES.) As Ordered ONE; +LR 1,000 ML IV ONE; -NS 1,000 ML IV ONE; +VITA500C24 PO; +ceFAZolin SOD 2 GM in IV 1 EA IV ONE; +dexameTHASONE 4 MG/ML 1ML VIAL (J1100 PER 1MG) As Ordered ONE; -propofoL 200 MG/20 ML VIAL As Ordered ONE
--- OUTSIDE RECORDS SUMMARY | 2021-05-17 12:24 | CCD | Continuity of Care Document ---
Author Author Sandoval HERNANDEZ PA Organization Unknown Address [address] [facility], [address] [place] [address] Phone [phone] Care Team Providers Care Furnace Combination Analyst Name Role Phone AUTM Unavailable Jas Erazo M.D. AUTM [phone] Problems Active Problems Provider Date Essential hypertension Khanh Valencia DO Onset: Social History Type Date Description Comments Sex Unknown ETOH Use Denies alcohol use Tobacco Use Start: Unknown Patient is a current smoker, smo kes every day 1 ppd Recreational Drug Use Denies Drug Use Allergies, Adverse Reactions, Alerts Description No Known Drug Allergies Medications Active Medications SIG Qnty Indications Ordering Provide r Date Suprep Bowel Prep Kit 17.5-3.13-1.6GM/177ML Solution take per doctor's bowel prep instructions. 354ml Khanh Valencia DO 01/24/2021 Digoxin 250mcg Tablets once d Parag Davila M.D. Eliquis 5mg Tablets Take One Tablet By Mouth Twice A Day Unknown Atenolol 25mg Tablets Once da Ministerio Zeng M.D. Metformin HCL 500mg Tablets Take One Tablet By Mouth Twice A Day Unknown Clopidogrel Bisulfate 75mg Tablets Once daily Parag Guerra M.D. Atorvastatin Calcium 40mg Tablets Take One Tablet By Mouth Every Day Unknown Aricept 10mg Tablets ONce yung ly Unknown Protonix 40mg Tablets DR 1 by mouth every day Unknown Fleet Enema 7-19GM/118ML Enema prn Unknown Mapap Arthritis Pain 650mg Tablets ER prn Unknown Milk Of Magnesia 400mg/5ML Suspension prn Unknown Bisacodyl Laxative 10mg Suppositor y use as directed prn Unknown Hydrogel Ag Gel apply to radha n prn Unknown Ammonium Lactate 12% Cream apply to legs rima prn Unknown Acetaminophen 325mg Chewtabs 2 tabs by mouth every day Unknown Immunizations Description No Information Available Vital Signs Date Vital Result Comment 03/07/2021 9:35am BP Systolic 150 mmHg BP Diastolic 84 mmHg Heart Rate 79 /min Body Temperature 98.3 F Height 72 inches 6'0" Weight 282.38 lb BMI (Body Mass Index) 38.3 kg/m2 [place] Body Weight 178 lb Weight 128.085 kg BSA (Body Surface Area) 2.47 m2 01/03/2021 1:22pm BP Systolic 130 mmHg BP Diastolic 79 mmHg Height 72 inches 6'0" Weight 300.44 lb BMI (Body Mass Index) 40.7 kg/m2 [place] Body Weight 178 lb Weight 136.278 kg BSA (Body Surface Area) 2.53 m2 Results Description No Information Available Procedures Date Code Description Status 03/07/2021 34856 Office/Outpatient Established Lo w MDM 20-29 Min Completed 02/22/2021 61647 Colonoscopy Flexible Proximal To Splenic Flexure Diagnostic W/Or Completed 02/22/2021 29101 Endoscopy Upper GI Complex Diagn ostic Completed 01/03/2021 54478 Office/Outpatient New Moderate M DM 45-59 Minutes Completed Medical Devices Description No Information Available Encounters Type Date Location Provider Dx Diagnosis Office Visit 03/07/2021 9:45a [facility] ALTAGRACIA Patterson R63.4 Abnormal weight loss Z80.0 Family history of malignant neoplasm of digestive organs I48.20 Chronic atrial fibrillation, unspecified I25.10 Athscl heart disease of [place] coronary artery w/o ang pctrs Office Visit 01/03/2021 1:30p [facility] Khanh Valencia DO R63.4 Abnormal weight loss Z80.0 Family history of malignant neoplasm of digestive organs Assessments Date Code Description Provider 03/07/2021 R63.4 Abnormal weight loss ALTAGRACIA Walker 03/07/2021 Z80.0 Family history of malignant neop lasm of digestive organs ALTAGRACIA Whitman 03/07/2021 I48.20 Chronic atrial fibrillation, uns pecified ALTAGRACIA Whitman 03/07/2021 I25.10 Atherosclerotic hear t disease of [place] coronary artery without angina pectoris ALTAGRACIA Whitman 02/22/2021 R63.4 Abnormal weight loss Khanh mead DO 01/03/2021 R63.4 Abnormal weight loss Khanh mead DO 01/03/2021 Z80.0 Family history of malignant neop lasm of digestive organs Khanh Valencia DO Plan of Treatment Future Appointment(s):* 05/02/2021 10:15 am - ALTAGRACIA Whitman at [facility] * 04/19/2021 9:10 am - Khanh Valencia DO at [facility] 03/07/2021 - ALTAGRACIA Whitman* R63.4 Abnormal weight loss * Z80.0 Family history of malignant neoplasm of digestive organs * I48.20 Chronic atrial fibrillation, unspecified * I25.10 Atherosclerotic heart disease of [place] coronary artery without angina pectoris Functional Status Description No Information Available Mental Status Description No Information Available Referrals Refer to Dr Reason for Referral Status Appt Date Yaniv, Aaron Canas MD ABNORMAL WEIGHT LOSS Created [address] [address] [phone] Khanh Valencia D.O. Closed [address] [place] [address] [phone] Khanh Valencia D.O. WEIGHT LOSS, REQ COLONOSCOPY Closed 01/03/[address] [place] [address] [phone]
--- OUTSIDE RECORDS SUMMARY | 2021-05-17 12:24 | CCD | Continuity of Care Document ---
Author Author Sandoval HERNANDEZ PA Organization Unknown Address [address] [facility], [address] [place] [address] Phone [phone] Care Team Providers Care Cruise Director Name Role Phone AUTM Unavailable Jas Erazo M.D. AUTM [phone] Problems Active Problems Provider Date Essential hypertension [...] lb BMI (Body Mass Index) 38.3 kg/m2 [place] Body Weight 178 lb Weight 128.085 kg BSA (Body Surface Area) 2.47 m2 01/03/2021 1:22pm BP Systolic 130 mmHg BP Diastolic 79 mmHg Height 72 inches 6'0" Weight 300.44 lb BMI (Body Mass Index) 40.7 kg/m2 [place] Body Weight 178 lb Weight 136.278 kg BSA (Body Surface Area) 2.53 m2 Results Description No Information Available Procedures Date Code Description Status 02/22/2021 72413 Colonoscopy Flexible Proximal To Splenic Flexure Diagnostic W/Or Completed 02/22/2021 18413 Endoscopy Upper GI Complex Diagn ostic Completed 01/03/2021 28540 Office/Outpatient New Moderate M DM 45-59 Minutes Completed Medical Devices Description No Information Available Encounters Type Date Location Provider Dx Diagnosis Office Visit 01/03/2021 1:30p [facility] Khanh Valencia DO R63.4 Abnormal weight loss Z80.0 Family history of malignant neoplasm of digestive organs Assessments Date Code Description Provider 03/07/2021 R63.4 Abnormal weight loss ALTAGRACIA Walker 03/07/2021 Z80.0 Family history of malignant neop lasm of digestive organs ALTAGRACIA Whitman 03/07/2021 I48.20 Chronic atrial fibrillation, uns pecified ALTAGRACIA Whitman 03/07/2021 I25.10 Atherosclerotic hear t disease of [place] coronary artery without angina pectoris ALTAGRACIA Whitman 02/22/2021 R63.4 Abnormal weight loss Khanh mead DO 01/03/2021 R63.4 Abnormal weight loss Khanh mead DO 01/03/2021 Z80.0 Family history of malignant neop lasm of digestive organs Khanh Valencia DO Plan of Treatment Future Appointment(s):* 05/02/2021 10:15 am - ALTAGRACIA Whitman at [facility] * 04/19/2021 8:30 am - Khanh Valencia DO at [facility] 03/07/2021 - ALTAGRACIA Whitman* R63.4 Abnormal weight loss * Z80.0 Family history of malignant neoplasm of digestive organs * I48.20 Chronic atrial fibrillation, unspecified * I25.10 Atherosclerotic heart disease of [place] coronary artery without angina pectoris Functional Status Description No Information Available Mental Status Description No Information Available Referrals Refer to Dr Reason for Referral Status Appt Date Yaniv, Aaron Canas MD ABNORMAL WEIGHT LOSS Created [address] [address] [phone] Khanh Valencia D.O. Closed [address] [place] [address] [phone] Khanh Valencia D.O. WEIGHT LOSS, REQ COLONOSCOPY Closed 01/03/[address] [place] [address] [phone]
--- OUTSIDE RECORDS SUMMARY | 2021-05-17 12:24 | CCD ---
Continuity of Care Document (CCD) Created on: 05/12/2021 Sandoval Cotton External Reference #: [id number] : [id number] Sex: Male Author Author Sandoval [facility] Organization Unknown Address [address] [place] [address], [facility] [address] [place] [address] Phone [phone] Care Team Providers Care Marketing Performance Analyst Name Role Phone Jas Erazo MD AUTM [phone] Problems Description No Information Available Social History Type Date Description Comments Sex Unknown ETOH Use Never used alcohol Tobacco Use Start: Unknown End: Unknown Patient is a former smoker Allergies and adverse reactions Description No Information Available Medications Active Medications SIG Qnty Indications Ordering Provide r Date Eliquis 5mg Tablets Jas Erazo MD Ciprofloxacin HCL 500mg Tablets Jas Erazo MD Atenolol 25mg Tablets Jas Erazo MD Clopidogrel Bisulfate 75mg Tablets Jas Erazo MD Donepezil HCL 10mg Tablets Jas Erazo MD Metformin HCL 500mg Tablets Jas Erazo MD Pantoprazole Sodium 40mg Tablets Jas Samson MD Digoxin 250mcg Tablets Jas Erazo MD Atorvastatin Calcium 40mg Tablets Jas Erazo MD Tetracycline HCL 500mg Capsules Jas Erazo MD Suprep Bowel Prep Kit 17.5-3.13-1.6GM/177ML Solution Jeff Lewis M.D. Hydroxyzine HCL 25mg Tablets Jas Erazo MD Potassium Chloride ER 8Meq Tablets ER Take One Tablet By Mouth Twice A Day Unknown Immunizations Description No Information Available Vital Signs Date Vital Result Comment 05/12/2021 1:55pm Height 72 inches 6'0" Weight 270.00 lb BP Systolic 124 mmHg BP Diastolic 64 mmHg Heart Rate 66 /min BMI (Body Mass Index) 36.6 kg/m2 Results Description No Information Available Procedures Description No Information Available Medical Devices Description No Information Available Encounters Description No Information Available Assessments Description No Information Available Plan of Treatment No Information Available Functional Status Description No Information Available Mental Status Description No Information Available Referrals Description No Information Available
--- OUTSIDE RECORDS SUMMARY | 2021-05-17 12:24 | CCD | Continuity of Care Document ---
Author Author Sandoval VALENCIA DO Organization Unknown Address [address] [facility], [address] [place] [address] Phone [phone] Care Team Providers Care [employer] Volleyball Coach Name Role Phone AUTM Unavailable Jas Erazo M.D. AUTM [phone] Problems Active Problems Provider Date Essential hypertension Khanh Valencia DO Onset: Social History Type Date Description Comments Sex Unknown ETOH Use Denies alcohol use Tobacco Use Start: Unknown Patient is a current smoker, smo kes every day 1 ppd Recreational Drug Use Denies Drug Use Allergies and adverse reactions Description No Known Drug Allergies Medications Active Medications SIG Qnty Indications Ordering Provide r Date Suprep Bowel Prep Kit 17.5-3.13-1.6GM/177ML Solution take per doctor's bowel prep instructions. 354ml Jeff Lewis M.D. 01/24/2021 Digoxin 250mcg Tablets once d Parag [...] lb BMI (Body Mass Index) 38.3 kg/m2 [place] Body Weight 178 lb Weight 128.085 kg BSA (Body Surface Area) 2.47 m2 01/03/2021 1:22pm BP Systolic 130 mmHg BP Diastolic 79 mmHg Height 72 inches 6'0" Weight 300.44 lb BMI (Body Mass Index) 40.7 kg/m2 [place] Body Weight 178 lb Weight 136.278 kg BSA (Body Surface Area) 2.53 m2 Results Description No Information Available Procedures Date Code Description Status 04/19/2021 55591 Colonoscopy Flexible Proximal To Splenic Flexure Diagnostic W/Or Completed 03/07/2021 07936 Office/Outpatient Established Lo w MDM 20-29 Min Completed 02/22/2021 01233 Colonoscopy Flexible Proximal To Splenic Flexure Diagnostic W/Or Completed 02/22/2021 92545 Endoscopy Upper GI Complex Diagn ostic Completed 01/03/2021 65977 Office/Outpatient New Moderate M DM 45-59 Minutes Completed Medical Devices Description No Information Available Encounters Type Date Location Provider Dx Diagnosis Office Visit 03/07/2021 9:45a [facility] ALTAGRACIA Patterson R63.4 Abnormal weight loss Z80.0 Family history of malignant neoplasm of digestive organs I48.20 Chronic atrial fibrillation, unspecified I25.10 Athscl heart disease of [place] coronary artery w/o ang pctrs Office Visit 01/03/2021 1:30p [facility] Khanh Valencia DO R63.4 Abnormal weight loss Z80.0 Family history of malignant neoplasm of digestive organs Assessments Date Code Description Provider 04/19/2021 K64.1 Second degree hemorrhoids Khanh Valencia, DO 04/19/2021 Z80.0 Family history of malignant neop lasm of digestive organs Khanh Valencia, DO 04/19/2021 R63.4 Abnormal weight loss Khanh mead, DO 03/07/2021 R63.4 Abnormal weight loss Sayra alvarez, PA 03/07/2021 Z80.0 Family history of malignant neop lasm of digestive organs Sayra Patel, PA 03/07/2021 I48.20 Chronic atrial fibrillation, uns pecified Sayra Patel, PA 03/07/2021 I25.10 Atherosclerotic hear t disease of [place] coronary artery without angina pectoris Sayra Patel, PA 02/22/2021 R63.4 Abnormal weight loss Khanh mead, DO 01/03/2021 R63.4 Abnormal weight loss Khanh mead, DO 01/03/2021 Z80.0 Family history of malignant neop lasm of digestive organs Khanh Valencia, DO Plan of Treatment No Information Available Functional Status Description No Information Available Mental Status Description No Information Available Referrals Refer to Dr Reason for Referral Status Appt Date Yaniv, Aaron Canas MD ABNORMAL WEIGHT LOSS Created [address] [address] [phone] Khanh Valencia D.O. Closed [address] [place] [address] [phone] Khanh Valencia D.O. WEIGHT LOSS, REQ COLONOSCOPY Closed 01/03/[address] [place] [address] [phone]
--- OUTSIDE RECORDS SUMMARY | 2021-05-17 12:24 | CCD | Continuity of Care Document ---
Author Author Sandoval HERNANDEZ PA Organization Unknown Address [address] [facility], [address] [place] [address] Phone [phone] Care Team Providers Care Advertising Operations Coordinator Name Role Phone AUTM Unavailable Jas Erazo M.D. AUTM [phone] Problems Active Problems Provider Date Essential hypertension [...] lb BMI (Body Mass Index) 38.3 kg/m2 [place] Body Weight 178 lb Weight 128.085 kg BSA (Body Surface Area) 2.47 m2 01/03/2021 1:22pm BP Systolic 130 mmHg BP Diastolic 79 mmHg Height 72 inches 6'0" Weight 300.44 lb BMI (Body Mass Index) 40.7 kg/m2 [place] Body Weight 178 lb Weight 136.278 kg BSA (Body Surface Area) 2.53 m2 Results Description No Information Available Procedures Date Code Description Status 02/22/2021 67499 Colonoscopy Flexible Proximal To Splenic Flexure Diagnostic W/Or Completed 02/22/2021 08513 Endoscopy Upper GI Complex Diagn ostic Completed 01/03/2021 43133 Office/Outpatient New Moderate M DM 45-59 Minutes Completed Medical Devices Description No Information Available Encounters Type Date Location Provider Dx Diagnosis Office Visit 01/03/2021 1:30p [facility] Khanh Valencia DO R63.4 Abnormal weight loss Z80.0 Family history of malignant neoplasm of digestive organs Assessments Date Code Description Provider 03/07/2021 R63.4 Abnormal weight loss ALTAGRACIA Walker 03/07/2021 Z80.0 Family history of malignant neop lasm of digestive organs ALTAGRACIA Whitman 03/07/2021 I48.20 Chronic atrial fibrillation, uns pecified ALTAGRACIA Whitman 03/07/2021 I25.10 Atherosclerotic hear t disease of [place] coronary artery without angina pectoris ALTAGRACIA Whitman 02/22/2021 R63.4 Abnormal weight loss Khanh mead DO 01/03/2021 R63.4 Abnormal weight loss Khanh mead DO 01/03/2021 Z80.0 Family history of malignant neop lasm of digestive organs Khanh Valencia DO Plan of Treatment Future Appointment(s):* 05/02/2021 10:15 am - ALTAGRACIA Whitman at [facility] * 04/19/2021 8:30 am - Khanh Valencia DO at [facility] 03/07/2021 - ALTAGRACIA Whitman* R63.4 Abnormal weight loss * Z80.0 Family history of malignant neoplasm of digestive organs * I48.20 Chronic atrial fibrillation, unspecified * I25.10 Atherosclerotic heart disease of [place] coronary artery without angina pectoris Functional Status Description No Information Available Mental Status Description No Information Available Referrals Refer to Dr Reason for Referral Status Appt Date Yaniv, Aaron Canas MD ABNORMAL WEIGHT LOSS Created [address] [address] [phone] Khanh Valencia D.O. Closed [address] [place] [address] [phone] Khanh Valencia D.O. WEIGHT LOSS, REQ COLONOSCOPY Closed 01/03/[address] [place] [address] [phone]
--- OUTSIDE RECORDS SUMMARY | 2021-05-17 12:25 | CCD ---
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 Name Role Phone NO, PCP Unavailable Unavailable JUAN LEDESMA Unavailable Unavailable YEVGENIY GUTIERREZ MD Unavailable Unavailable YEVGENIY GUTIERREZ MD Unavailable Unavailable YEVGENIY GUTIERREZ MD Unavailable Unavailable YEVGENIY GUTIERREZ MD Unavailable Unavailable YEVGENIY GUTIERREZ MD Unavailable Unavailable YEVGENIY GUTIERREZ MD Unavailable Unavailable YEVGENIY GUTIERREZ MD Unavailable Unavailable YEVGENIY GUTIERREZ MD Unavailable Unavailable YEVGENIY GUTIERREZ MD Unavailable Unavailable YEVGENIY GUTIERREZ MD Unavailable Unavailable YEVGENIY GUTIERREZ MD Unavailable Unavailable YEVGENIY GUTIERREZ MD Unavailable Unavailable YEVGENIY GUTIERREZ MD Unavailable Unavailable YEVGENIY GUTIERREZ MD Unavailable Unavailable YEVGENIY GUTIERREZ MD Unavailable Unavailable YEVGENIY GUTIERREZ MD Unavailable Unavailable YEVGENIY GUTIERREZ MD Unavailable Unavailable YEVGENIY GUTIERREZ MD Unavailable Unavailable YEVGENIY GUTIERREZ MD Unavailable Unavailable YEVGENIY GUTIERREZ MD Unavailable Unavailable YEVGENIY GUTIERREZ MD Unavailable Unavailable YEVGENIY GUTIERREZ MD Unavailable Unavailable YEVGENIY GUTIERREZ MD Unavailable Unavailable YEVGENIY GUTIERREZ MD Unavailable Unavailable YEVGENIY GUTIERREZ MD Unavailable Unavailable YEVGENIY GUTIERREZ MD Unavailable Unavailable GUTIERREZ, YEVGENIY MD Unavailable Unavailable GUTIERREZ, YEVGENIY MD Unavailable Unavailable GUTIERREZ, YEVGENIY MD Unavailable Unavailable GUTIERREZ, YEVGENIY MD Unavailable Unavailable GUTIERREZ, YEVGENIY MD Unavailable Unavailable GUTIERREZ, YEVGENIY MD Unavailable Unavailable GUTIERREZ, YEVGENIY MD Unavailable Unavailable GUTIERREZ, YEVGENIY MD Unavailable Unavailable GUTIERREZ, YEVGENIY MD Unavailable Unavailable GUTIERREZ, YEVGENIY MD Unavailable Unavailable GUTIERREZ, YEVGENIY MD Unavailable Unavailable GUTIERREZ, YEVGENIY MD Unavailable Unavailable GUTIERREZ, YEVGENIY MD Unavailable Unavailable UGTIERREZ, YEVGENIY MD Unavailable Unavailable GUTIERREZ, YEVGENIY MD Unavailable Unavailable GUTIERREZ, YEVGENIY MD Unavailable Unavailable GUTIERREZ, YEVGENIY MD Unavailable Unavailable GUTIERREZ, YEVGENIY MD Unavailable Unavailable GUTIERREZ, YEVGENIY MD Unavailable Unavailable GUTIERREZ, YEVGENIY MD Unavailable Unavailable GUTIERREZ, YEVGENIY MD Unavailable Unavailable GUTIERREZ, YEVGENIY MD Unavailable Unavailable GUTIERREZ, YEVGENIY MD Unavailable Unavailable GUTIERREZ, YEVGENIY MD Unavailable Unavailable GUTIERREZ, YEVGENIY MD Unavailable Unavailable GUTIERREZ, YEVGENIY MD Unavailable Unavailable GUTIERREZ, YEVGENIY MD Unavailable Unavailable GUTIERREZ, YEVGENIY MD Unavailable Unavailable GUTIERREZ, YEVGENIY MD Unavailable Unavailable GUTIERREZ, YEVGENIY MD Unavailable Unavailable GUTIERREZ, YEVGENIY MD Unavailable Unavailable GUTIERREZ, YEVGENIY MD Unavailable Unavailable GUTIERREZ, YEVGENIY MD Unavailable Unavailable GUTIERREZ, YEVGENIY MD Unavailable Unavailable GUTIERREZ, YEVGENIY MD Unavailable Unavailable GUTIERREZ, YEVGENIY MD Unavailable Unavailable GUTIERREZ, YEVGENIY MD Unavailable Unavailable GUTIERREZ, YEVGENIY MD Unavailable Unavailable GUTIERREZ, YEVGENIY MD Unavailable Unavailable GUTIERREZ, YEVGENIY MD Unavailable Unavailable GUTIERREZ, YEVGENIY MD Unavailable Unavailable GUTIERREZ, YEVGENIY MD Unavailable Unavailable GUTIERREZ, YEVGENIY MD Unavailable Unavailable GUTIERREZ, YEVGENIY MD Unavailable Unavailable GUTIERREZ, YEVGENIY MD Unavailable Unavailable AliYamileth MD Unavailable Unavailable AliYamileth MD Unavailable Unavailable AliYamileth MD Unavailable Unavailable AliYamileth MD Unavailable Unavailable AliYamileth MD Unavailable Unavailable AliYamileth MD Unavailable Unavailable AliYamileth MD Unavailable Unavailable Yamileth Aquino MD Unavailable Unavailable AliYamileth MD Unavailable Unavailable AliYamileth MD Unavailable Unavailable AliYamileth MD Unavailable Unavailable AliYamileth MD Unavailable Unavailable Ali Yamileth MD Unavailable Unavailable AliYamileth MD Unavailable Unavailable Yamileth Aquino MD Unavailable Unavailable Yamileth Aquino MD Unavailable Unavailable Yamileth Aquino MD Unavailable Unavailable Yamileth Aquino MD Unavailable Unavailable Yamileth Aquino MD Unavailable Unavailable AliYamileth MD Unavailable Unavailable Ali, Yamileth MD Unavailable Unavailable Ali, Yamileth MD Unavailable Unavailable Ali, Yamileth MD Unavailable Unavailable Ali, Yamileth MD Unavailable Unavailable Ali, Yamileth MD Unavailable Unavailable Ali, Yamileth MD Unavailable Unavailable Ali, Yamileth MD Unavailable Unavailable Ali, Yamileth MD Unavailable Unavailable Ali, Yamileth MD Unavailable Unavailable Ali, Yamileth MD Unavailable Unavailable Ali, Yamileth MD Unavailable Unavailable Ali, Yamileth MD Unavailable Unavailable Ali, Yamileth MD Unavailable Unavailable Ali, Yamileth MD Unavailable Unavailable Ali, Yamileth MD Unavailable Unavailable Ali, Yamileth MD Unavailable Unavailable Ali, Yamileth MD Unavailable Unavailable Ali, Yamileth MD Unavailable Unavailable Ali, Yamileth MD Unavailable Unavailable Ali, Yamileth MD Unavailable Unavailable Ali, Yamileth MD Unavailable Unavailable Ali, Yamileth MD Unavailable Unavailable Ali, Yamileth MD Unavailable Unavailable Ali, Yamileth MD Unavailable Unavailable Ali, Yamileth MD Unavailable Unavailable Ali, Yamileth MD Unavailable Unavailable Ali, Yamileth MD Unavailable Unavailable Ali, Yamileth MD Unavailable Unavailable Ali, Yamileth MD Unavailable Unavailable Ali, Yamileth MD Unavailable Unavailable Ali, Yamileth MD Unavailable Unavailable BRYDEN, A MAURICIO DO Unavailable Unavailable BRYDEN, A MAURICIO DO Unavailable Unavailable BRYDEN, A MAURICIO DO Unavailable Unavailable BRYDEN, A MAURICIO DO Unavailable Unavailable BRYDEN, A MAURICIO DO Unavailable Unavailable BRYDEN, A MAURICIO DO Unavailable Unavailable BRYDEN, A MAURICIO DO Unavailable Unavailable BRYDEN, A MAURICIO DO Unavailable Unavailable BRYDEN, A MAURICIO DO Unavailable Unavailable BRYDEN, A MAURICIO DO Unavailable Unavailable BRYDEN, A MAURICIO DO Unavailable Unavailable BRYDEN, A MAURICIO DO Unavailable Unavailable BRYDEN, A MAURICIO DO Unavailable Unavailable BRYDEN, A MAURICIO DO Unavailable Unavailable BRYDEN, A MAURICIO DO Unavailable Unavailable BRYDEN, A MAURICIO DO Unavailable Unavailable BRYDEN, A MAURICIO DO Unavailable Unavailable BRYDEN, A MAURICIO DO Unavailable Unavailable BRYDEN, A MAURICIO DO Unavailable Unavailable BRYDEN, A MAURICIO DO Unavailable Unavailable BRYDEN, A MAURICIO DO Unavailable Unavailable BRYDEN, A MAURICIO DO Unavailable Unavailable BRYDEN, A MAURICIO DO Unavailable Unavailable BRYDEN, A MAURICIO DO Unavailable Unavailable BRYDEN, A MAURICIO DO Unavailable Unavailable BRYDEN, A MAURICIO DO Unavailable Unavailable BRYDEN, A MAURICIO DO Unavailable Unavailable BRYDEN, A MAURICIO DO Unavailable Unavailable BRYDEN, A MAURICIO DO Unavailable Unavailable Patel, L Sayra RPA Unavailable Unavailable Patel, L Sayra RPA Unavailable Unavailable Patel, L Sayra RPA Unavailable Unavailable Patel, L Sayra RPA Unavailable Unavailable Patel, L Sayra RPA Unavailable Unavailable Patel, L Sayra RPA Unavailable Unavailable Patel, L Sayra RPA Unavailable Unavailable Patel, L Sayra RPA Unavailable Unavailable Patel, L Sayra RPA Unavailable Unavailable Patel, L Sayra RPA Unavailable Unavailable Patel, L Sayra RPA Unavailable Unavailable Patel, L Sayra RPA Unavailable Unavailable Patel, L Sayra RPA Unavailable Unavailable Patel, L Sayra RPA Unavailable Unavailable Patel, L Sayra RPA Unavailable Unavailable Patel, L Sayra RPA Unavailable Unavailable Patel, L Sayra RPA Unavailable Unavailable Patel, L Sayra RPA Unavailable Unavailable Patel, L Sayra RPA Unavailable Unavailable Patel, L Sayra RPA Unavailable Unavailable Patel, L Sayra RPA Unavailable Unavailable Patel, L Sayra RPA Unavailable Unavailable Patel, L Sayra RPA Unavailable Unavailable Patel, L Sayra RPA Unavailable Unavailable Patel, L Sayra RPA Unavailable Unavailable Patel, L Sayra RPA Unavailable Unavailable Patel, L Sayra RPA Unavailable Unavailable Patel, L Sayra RPA Unavailable Unavailable Patel, L Sayra RPA Unavailable Unavailable Patel, L Sayra RPA Unavailable Unavailable Patel, L Sayra RPA Unavailable Unavailable Patel, L Sayra RPA Unavailable Unavailable JUAN CANTRELL Unavailable Unavailable Re-disclosure Warning The records that you are about to access may contain information from federally-assisted alcohol or drug abuse programs. If such information is present, then the following federally mandated warning applies: This information has been disclosed to you from records protected by federal confidentiality rules (42 CFR part 2). The federal rules prohibit you from making any further disclosure of this information unless further disclosure is expressly permitted by the written consent of the person to whom it pertains or as otherwise permitted by 42 CFR part 2. A general authorization for the release of medical or other information is NOT sufficient for this purpose. The Federal rules restrict any use of the information to criminally investigate or prosecute any alcohol or drug abuse patient.The records that you are about to access may contain highly sensitive health information, the redisclosure of which is protected by Article 27-F of the [facility] Public Health law. If you continue you may have access to information: Regarding HIV / AIDS; Provided by facilities licensed or operated by the [facility] Office of Mental Health; or Provided by the [place] State Office for People With Developmental Disabilities. If such information is present, then the following [facility] mandated warning applies: This information has been disclosed to you from confidential records which are protected by state law. State law prohibits you from making any further disclosure of this information without the specific written consent of the person to whom it pertains, or as otherwise permitted by law. Any unauthorized further disclosure in violation of state law may result in a fine or snf sentence or both. A general authorization for the release of medical or other information is NOT sufficient authorization for further disc losure. Family History Family Member Name Family Member Gender Family Member Status Date o f Status Description Data Source(s) Unknown Male Problem [facility] ([facility]) Encounters Encounter Providers Location Date Indications Data Source(s ) Outpatient Attender: JUAN Lozano: PCP NO 05/12/2021 06:24:00 PM EDT - 05/12/2021 06:34:00 PM EDT [facility] Outpatient Attender: JUAN Lozano: PCP NO 05/11/2021 03:30:00 PM EDT - 05/11/2021 03:40:00 PM EDT [facility] Outpatient Attender: JUAN Lozano: PCP NO 05/10/2021 03:08:00 PM EDT - 05/10/2021 04:08:00 PM EDT [facility] Outpatient Attender: JUAN Carvalhoant: PCP NO 04/25/2021 06:59:00 AM EDT - 04/25/2021 07:59:00 AM EDT [facility] Outpatient Attender: JUAN Lozano: PCP NO 04/24/2021 05:24:00 PM EDT - 04/24/2021 05:34:00 PM EDT [facility] Outpatient Attender: JUAN Eduardo: PCP NO 04/18/2021 07:39:00 AM EDT - 04/18/2021 07:49:00 AM EDT [facility] Outpatient Attender: JUAN Lozano: PCP NO 04/14/2021 12:33:00 PM EDT - 04/14/2021 12:43:00 PM EDT [facility] Outpatient Attender: JUAN Leeant: PCP NO 04/04/2021 12:43:00 PM EDT - 04/04/2021 12:53:00 PM EDT [facility] Outpatient Attender: JUAN Bedoyasultant: PCP NO 03/16/2021 02:18:00 PM EDT - 03/16/2021 02:28:00 PM EDT [facility] Outpatient Attender: Sayra Purvis/Channing/Delgado/R eindl 03/07/2021 09:45:00 AM EDT [facility] Outpatient Attender: JUAN Carvalhoant: PCP NO 01/17/2021 07:59:00 AM EDT - 01/17/2021 08:09:00 AM EDT [facility] Outpatient Attender: MAURICIO Graham/Channing/Delgado/Eddi ndl 01/03/2021 01:30:00 PM EDT [facility] ([facility] Outpatient Attender: JUAN Carvalhoant: PCP NO 12/20/2020 06:47:00 AM EDT - 12/20/2020 06:57:00 AM EDT [facility] Outpatient Attender: YEVGENIY GUTIERREZ MDConsultant: PCP NO 11/22/2020 06:51:00 AM EDT - 11/22/2020 07:01:00 AM EDT [facility] Outpatient Attender: YEVGENIY GUTIERREZ MDConsultant: PCP NO 10/11/2020 06:57:00 AM EDT - 10/11/2020 07:07:00 AM EDT [facility] Outpatient Attender: YEVGENIY GUTIERREZ MDConsultant: PCP NO 10/06/2020 07:09:00 AM EDT - 10/06/2020 07:19:00 AM EDT [facility] Outpatient Attender: YEVGENIY GUTIERREZ MDConsultant: PCP NO 09/30/2020 11:29:00 AM EDT - 09/30/2020 11:39:00 AM EDT [facility] Outpatient Attender: YEVGENIY GUTIERREZ MDConsultant: PCP NO 09/29/2020 05:19:00 PM EDT - 09/29/2020 05:29:00 PM EDT [facility] Outpatient Attender: Yamileth Aquino MD Main office [facility] 09/20/2020 11:15:00 AM EDT [facility] ([facility]) Outpatient Attender: YEVGENIY GUTIERREZ MDConsultant: PCP NO 09/13/2020 07:33:00 AM EST - 09/13/2020 07:43:00 AM EST [facility] Outpatient Attender: YEVGENIY GUTIERREZ MDConsultant: PCP NO 07/25/2020 02:17:00 PM EST - 07/25/2020 02:27:00 PM EST [facility] Patient discharged. Outpatient Attender: YEVGENIY GUTIERREZ MDConsultant: PCP NO 07/18/2020 05:13:00 PM EST - 07/18/2020 05:23:00 PM EST [facility] Outpatient Attender: YEVGENIY GUTIERREZ MDConsultant: PCP NO 07/15/2020 01:53:00 PM EST - 07/15/2020 02:03:00 PM EST [facility] Medications Medication Brand Name Start Date Product Form Dose Route Admi nistrative Instructions Pharmacy Instructions Status Indications Reaction Description Data Source(s) Suprep Bowel Prep Kit Suprep Bowel Prep Kit 01/24/2021 12:00:00 AM EDT active [facility] ([facility]) Donepezil hydrochloride 10 MG Oral Tablet Donepezil HCL 09/20/2020 12:00:00 AM EDT ORAL active [facility] ([facility]) 8 mEq 06/16/2020 12:00:00 AM EST tablet extended release 180 TAKE ONE TABLET BY MOUTH TWICE A DAY TAKE ONE TABLET BY MOUTH TWICE A DAY SOLD: 06/29/2020 [facility] 200 mg/mL 05/09/2020 12:00:00 AM EST oil 10 INJECT 2ML INTRAMUSCULARLY EVERY 2 WEEKS MAX=2ML/14DAYS INJECT 2ML INTRAMUSCULARLY EVERY 2 WEEKS MAX=2ML/14DAY S SOLD: 05/10/2020 [facility] atorvastatin 80 MG Oral Tablet ATORVASTATIN CALCIUM 04/29/2020 1 2:00:00 AM EDT tablet 90 TAKE ONE TABLET BY MOUTH EVERY D AY TAKE ONE TABLET BY MOUTH EVERY DAY SOLD: 05/02/2020 [facility] 20 mg 04/18/2020 12:00:00 AM EDT capsule,delayed release (DR/EC) 180 TAKE ONE CAPSULE BY MOUTH TWICE A DAY TAKE ONE CAPSULE BY MOUTH TWICE A DAY SOLD: 04/18/2020 [facility] 25 mg 04/18/2020 12:00:00 AM EDT tablet 45 TAKE ONE-HALF TABLET BY MOUTH ONCE DAILY TAKE ONE-HALF TABLET BY MOUTH ONCE DAILY SOLD: 04/18/2020 [facility] Atenolol 50 MG Oral Tablet ATENOLOL 03/23/2020 12:00:00 AM EDT tablet 135 TAKE ONE AND ONE-HALF TABLETS BY MOUTH ONCE DAILY TAKE ONE AND ONE-HALF TABLETS BY MOUTH ONCE DAILY SOLD: 03/24/2020 [facility] 5 mg 03/23/2020 12:00:00 AM EDT tablet 180 TAKE ONE TABLET BY MOUTH TWICE A DAY TAKE ONE TABLET BY MOUTH TWICE A DAY SOLD: 03/24/2020 [facility] Insurance Providers Payer name Policy type / Coverage type Policy ID Covered democrat ID Covered democrat's relationship to adams Policy [place] Plan Information BCBS [place] [id number] SP [id number] [facility] [id number] SP [id number] BC[employer] [place] [id number] SP [id number] [facility] [id number] SP [id number] [employer] [place] DIV [id number] SP [id number] [facility] [id number] SP [id number] [place] BCBS [id number] Evelin YLS [id number] [facility] Employees ([place] - [facility] Other 0 [id number] Self 0 [facility] [employer] [place] - [facility] Other 0 [id number] Self 0 [place] Plan-[facility] Commercial [id number] Self [id number] [place] Plan-[facility] [id number] Self [id number] [place] Plan-[facility] [id number] Self [id number] BCBS [place] BC [id number] S [id number] [place] Plan-[facility] [id number] Self [id number] [place] Plan-[facility] [place] [id number] Self [id number] [place] BCBS PI PI [place] Plan-[facility] [employer] [id number] Self [id number] [place] Plan-[facility] [id number] Self [id number] [place] Plan-[facility] [id number] Self [id number] [place] Plan-[facility] [place] [id number] Self [id number] [facility] ([facility] O [id number] S [id number] [facility] O [id number] S [id number] MEDICARE [id number] SP [id number] [id number] SP [id number] [place] MEDICAID -O/P [id number] [facility] COMM [id number] S [id number] [place] BLUE CROSS BLUE SHIELD -O/P [id number] Problems, Conditions, and Diagnoses Code Display Name Description Problem Type Effective Dates Data Source(s) [id number] Unspecified open wound, right foot, init ial encounter Unspecified open wound, right foot, initial encounter Diagnosis [id number] 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 Diagnosis 04/18/2021 07:39:00 AM EDT [facility] E7800 Pure hypercholesterolemia, unspecified P ure hypercholesterolemia, unspecified Diagnosis 04/18/2021 07:39:00 AM [facility] I10 Essential (primary) hypertension Essential (primary) h ypertension Diagnosis 04/18/2021 07:39:00 AM [facility] I2510 Atherosclerotic heart diseas e of [place] coronary artery without angina pectoris Atherosclerotic heart disease of [place] coronary artery without angina pectoris Diagnosis 04/18/2021 07:39:00 AM [facility] E119 Type 2 diabetes mellitus without complic ations Type 2 diabetes mellitus without complications Diagnosis 04/18/2021 07:39:00 AM EDT [facility] Z1152 ENCOUNTER FOR SCREENING FOR COVID-19 ENCOUNTER F OR SCREENING FOR COVID-19 Diagnosis 04/14/2021 12:33:00 PM [facility] [id number] Encounter for preprocedural laboratory e xamination Encounter for preprocedural laboratory examination Diagnosis 04/14/2021 12:33:00 PM [facility] [id number] Unspecified open wound, left foot, initi al encounter Unspecified open wound, left foot, initial encounter Diagnosis 04/04/2021 12:43:00 PM E DT [facility] I739 Peripheral vascular disease, unspecified Peripheral vascular disease, unspecified Diagnosis 01/17/2021 07[facility]59[facility] V[facility] Cerebral infarction due to embolism of l eft middle cerebral artery Cerebral infarction due to embolism of left middle cerebral artery Diagnosis 01/17/2021 07[facility]59[facility] I[facility] Cerebral infarction, unspecified Cerebral infarc tion, unspecified Diagnosis 11/22/2020 06:51:00 AM EDT [facility] K219 Gastro-esophageal reflux disease without esophagitis Gastro-esophageal reflux disease without esophagitis Diagnosis 10/06/2020 07:09:00 AM ED T [facility] [id number] Other injury of unspecified body region, initial encounter Other injury of unspecified body region, initial encounter Diagnosis 10/01/19 21 11:29:00 AM EDT [facility] I872 Venous insufficiency (chronic) (peripher al) Venous insufficiency (chronic) (peripheral) Diagnosis 09/29/2020 05:19:00 PM EDT [facility] I4891 Unspecified atrial fibrillation Unspecified atrial fib rillation Diagnosis 09/13/2020 07:33:00 AM [facility] I6340 Cerebral infarction due to embolism of u nspecified cerebral artery Cerebral infarction due to embolism of unspecified cerebral artery Diagnosis 07/15/2020 01:53:00 PM [facility] [id number] Essential hypertension Essential hypertension Problem 01/03/2021 12:00:00 AM EDT [facility] ([facility], ) I48.21 Permanent atrial fibrillation Permanent atrial fibrill ation Problem 09/20/2020 12:00:00 AM EDT [facility] ([facility] ) R41.1 Amnesia Amnesia Problem 09/20/2020 12:00:00 AM ED T [facility] ([facility] G45.0 Vertebrobasilar artery syndrome Vertebrobasilar artery syndrome Problem 09/20/2020 12:00:00 AM EDT [facility] ([facility], ) Surgeries/Procedures Procedure Description Date Indications Data Source(s) Colonoscopy Flexible Proximal To Splenic Flexure Diagnostic W/Or 04/19/2021 12:00:00 AM EDT [facility] ([facility], ) OFFICE OUTPATIENT VISIT 15 MINUTES 03/07/2021 12:00:00 AM EDT [facility] ([facility], ) Endoscopy Upper GI Complex Diagnostic 02/22/2021 12:00 :00 AM EDT [facility] ([facility], ) Colonoscopy Flexible Proximal To Splenic Flexure Diagnostic W/Or 02/22/2021 12:00:00 AM EDT [facility] ([facility], ) OFFICE OUTPATIENT NEW 45 MINUTES 01/03/2021 12:00:00 A M [facility] ECHO TTHRC R-T 2D W/WOM-MODE COMPL SPEC&COLR DOP 04/05 12:00:00 AM EDT [facility] ([facility]) Results ID Date Data Source [id number] 05/12/2021 07:43:00 PM EDT [facility] Name Value Range Interpretation Code Description Data Jaylene rce(s) Supporting Document(s) CBC NO DIFF [facility] ital COMPLETE BLOOD COUNT Leukocytes [#/volume] in Blood by Automated count 7.4 10^3/uL 4.2 - 1 1.0 [facility] Erythrocytes [#/volume] in Blood by Automated count 4.60 10^6/uL 4. 50 - 6.30 [facility] Hemoglobin [Mass/volume] in Blood 14.7 g/dL 14.0 - 16.0 [facility] Hematocrit [Volume Fraction] of Blood by Automated count 43.2 % 4 1.0 - 51.0 [facility] Erythrocyte mean corpuscular volume [Entitic volume] by Auto mated count 93.9 fL 80.0 - 94.0 [facility] Erythrocyte mean corpuscular hemoglobin [Entitic mass] by Automated count 32.0 pg 27.0 - 34.0 [facility] Erythrocyte mean corpuscular hemoglobin concentration [Mass/volume] by Automated count 34.0 g/dL 31.0 - 36.0 [facility] Erythrocyte distribution width [Ratio] by Automated count 12.7 % 11.5 - 14.8 [facility] Platelets [#/volume] in Blood by Automated count 259 10^3/uL 150 - 45 0 [facility] Platelet mean volume [Entitic volume] in Blood by Automated count 9.4 fL 7.4 - 10.4 [facility] ID Date Data Source [id number] 05/12/2021 07:40:00 PM EDT [facility] Name Value Range Interpretation Code Description Data Jaylene rce(s) Supporting Document(s) BASIC METABOLIC PANEL [facility] BASIC METABOLIC PANEL Sodium [Moles/volume] in Serum or Plasma 137 mEq/L 134 - 153 [facility] Potassium [Moles/volume] in Serum or Plasma 4.1 mEq/L 3.6 - 5.0 [facility] Chloride [Moles/volume] in Serum or Plasma 99 mEq/L 98 - 107 [facility] Carbon dioxide, total [Moles/volume] in Serum or Plasma 29 MEQ/L 22 - 30 [facility] Glucose [Mass/volume] in Serum or Plasma 94 MG/DL 70 - 99 [facility] BUN 11 MG/DL 7 - 21 [facility] [facility] al Creatinine [Mass/volume] in Serum or Plasma 0.8 MG/DL 0.7 - 1.5 [facility] BUN/CREAT 14 8 - 27 [facility] Calcium [Mass/volume] in Serum or Plasma 9.3 MG/DL 8.4 - 10.2 [facility] Anion gap 3 in Serum or Plasma 9.0 mmol/L 8.0 - 16.0 [facility] AGE 51 yrs [facility] al AFR AMER GFR >60 mL/min [facility] Ho spital NON-AA GFR >60 mL/min [facility] ital Male GFR Inter prentation 20-49 yrs >60 mL/min Normal 50-59 yrs >56 mL/min Normal 60-69 yrs >49 mL/min Normal 70-79yrs >42 mL/min Normal 80 and above >35 mL/min Normal Female GFR Interpretation 20-39 yrs >60 mL/min Normal 40-49 yrs >58 mL/min Normal 50-59 yrs >51 mL/min Normal 60-69 yrs >45 mL/min Normal 70-79 yrs >39 mL/min Normal 80 and above >32 mL/min Normal ID Date Data Source [id number] 05/15/2021 01:48:00 PM EST [facility] Name Value Range Interpretation Code Description Data Jaylene rce(s) Supporting Document(s) CULTURE WOUND [facility] Ho spital _CULTURE WOUND_$$[id number]$$[id number] DATE/TIME: 05/15/2021 13:05Culture: CULTURE WOUND Status: FinalIsolate 1 Proteus mirabilis Flag: A . . . . . . .7Heavy growth Previous result entered on 05/14/2021 07:07 ET Gram negative rodsAerobic Bacterial Culture: [id number] mirabilis Flag: AIsolate 2 Beta hemolytic Streptococcus, group A Flag: A . . . . . . .4Moderate growthPenicillin and ampicillin are drugs of choice for treatment ofbeta- hemolytic streptococcal infections. Susceptibility testing ofpenicillins and other beta-lactam agents approved by the FDA fortreatment of beta-hemolytic streptococcal infections need not beperformed routinely because nonsusceptible isolates are extremelyrare in any beta-hemolytic streptococcus and have not been reportedfor Streptococcus pyogenes (group A). (CLSI)Beta hemolytic Streptococcus, group A Flag: A -- Continued on next page --Patient: DES HONG Order: [id number] Page 2Culture: CULTURE WOUND Status: Final ====Patient: DES HONG Order: [id number] Page 3Culture: CULTURE WOUND Status: Final ====ISOLATE 1 Proteus mirabilis Isolate 1Antibi otic GRACIELA IntUnits ug/mL ----Ampicillin R R . . . . . .28-1Cefazolin R R . . . . . .76-0Cefepime S S . . . . . .6644-9Ceftriaxone S S . . . . . .141-2Cefuroxime S S . . . . . .145- 3Ciprofloxacin R R . . . . . .185-9Ertapenem S S . . . . . .03522-4Nvijafiodc S S . . . . . .267-5Levofloxacin R R . . . . . .14470-3Bblysrtvm S S . . . . . .6652-2Piperacil keyon/Tazobactam S S . . . . . .412-7Tetracycline R R . . . . . .496- 0Tobramycin S S . . . . . .508-2Trimethoprim/Sulfa S S . . . . . .516-5P1 Test performed by: [facility] #: [id number] [address] [place] [address] [id number] [facility] [id number] Director : Gerald Lemon MD NPI #:Pull Up Hand : 05/15/21.0624.XMT.SENT REF 05/15/21.1348.XMT.SENT REF 05/15/21.1348. .to [place] via fax ID Date Data Source [id number] 05/11/2021 08:24:00 [place] [address] PHONE: [phone] FAX: [phone] Name .................. : DES HONG Acct Number.................. : [id number] ROOM. ................. : Number ................... : [id number] Stay type ............. : O/P Discharge Date......... ... : 05/10/21 Admit Date ......... : 05/10/21 Admit Phys .................... : ÓSCAR Wendi Date of ....... : 1970 Family Phys ................... : NO PCP Phone .................. : [phone] Age ................................ : 51 Film# .................. .:[id number] Sex ................................. : M Unsigned transcriptions are preliminary reports and do not represent a medical or legal document FOOT COMPLETE-3 OR MORE [facility] [id number] COMPLETE:05/10/21 15:58 [facility] [id number] Reason for Exam: NON HEALING WOUND ON LT DORSAL FOOT RADIOGRAPHS OF THE LEFT FOOT 4 VIEWS INDICATION: Nonhealing wound dorsal left foot COMPARISON: None. FINDINGS: On one oblique view there is an indentation in the superficial soft tissues laterally in the region of the head of the fifth metatarsal. This could be a soft tissue ulcer. No soft tissue gas is identified. There is increased lucency in the fifth metatarsal head with loss of the cortical margin indicating bone destruction. The base of the proximal phalanx of the fifth toe is irregular and sclerotic. The articular surface is irregular. IMPRESSION: Destructive process centered around the metatarsophalangeal joint of the fifth toe. This is suspicious for septic arthritis with osteomyelitis of the fifth metatarsal and proximal phalanx. Electronically Reviewed and Signed By Ruslan Quevedo MD , 05/11/21 08:24, NICOLA Transcribe Initials: COTY , Transcribe Date: 05/10/21 23:26, Dictation Date: Copy for: ÓSCAR MARTINEZ Copy for: [address] [place] [address] REC Page 1 of 1 Name Value Range Interpretation Code Description Data Jaylene rce(s) Supporting Document(s) ID Date Data Source [id number] 04/25/2021 08:51:00 AM EDT [facility] Name Value Range Interpretation Code Description Data Jaylene rce(s) Supporting Document(s) Erythrocyte sedimentation rate by Westergren method 108 mm/hr 0 - 20 H [facility] SED RATE REENTER 108 [facility] ID Date Data Source [id number] 04/25/2021 08:08:00 AM EDT [facility] Name Value Range Interpretation Code Description Data Jaylene rce(s) Supporting Document(s) C reactive protein [Mass/volume] in Serum or Plasma by High sensitivity method 38.97 MG/L 1.00 - 3.00 H [facility] CDC/S HS-CRP CUT-OFF: RELATIVE RISK: <1.0 mg/L Low 1.0 - 3.0 mg/L Average >3.0 mg/L High Optimally, the average of HS-CRP results repeated two weeks apart should be used for risk assessment. ID Date Data Source [id number] 04/30/2021 07:49:00 PM EDT [facility] Name Value Range Interpretation Code Description Data Jaylene rce(s) Supporting Document(s) CULTURE WOUND [facility] Ho spital _CULTURE WOUND_$$[id number]$$[id number]$$[id number] DATE/TIME: 04/30/2021 07:05Culture: CULTURE WOUND Status: FinalAerobic Bacterial Culture: P1No growth in 36 - 48 hours. Previous result entered on 04/28/2021 06:17 ET No growth after 18-24 hours.P1 Test performed by: [facility] #: [id number] [address] [place] [address] [id number] [facility] [id number] Director : Gerald Lemon MD NPI #:Pull Up Hand : 04/28/21.1446.XMT.SENT REF 04/30/21.XMT.SENT REF 04/30/21.DW .to [place] via fax ID Date Data Source [id number] 04/18/2021 10:09:00 AM EDT [facility] Name Value Range Interpretation Code Description Data Jaylene rce(s) Supporting Document(s) Hemoglobin A1c/Hemoglobin.total in Blood 5.2 % 4.4 - 6.1 [facility] ID Date Data Source [id number] 04/18/2021 10:09:00 AM EDT [facility] Name Value Range Interpretation Code Description Data Jaylene rce(s) Supporting Document(s) [facility] Cholesterol [Mass/volume] in Serum or Plasma 70 MG/DL 131 - 200 L [facility] Deprecated Triglyceride [Mass/volume] in Serum or Plasma 42 MG/DL 3 5 - 160 [facility] HDL 36 MG/DL 29 - 86 [facility] al Cholesterol in LDL [Mass/volume] in Serum or Plasma by Direc t assay 28 mg/dL 65 - 175 L [facility] Cholesterol.total/Cholesterol in HDL [Mass Ratio] in Serum o r Plasma 1.9 3.4 - 4.9 L [facility] LDL/HDL 0.78 1.00 - 3.55 L [facility] ital CVE RISK CHOL/HDL LDL/HDLMEN: 1/2 AVERAGE 3.43 1.00 AVERAGE 4.97 3.55 2X AVERAGE 9.55 6.25 3X AVERAGE 23.99 7.99WOMEN: 1/2 AVERAGE 3.27 1.47 AVERAGE 4.44 3.22 2X AVERAGE 7.05 5.03 3X AVERAGE 11.04 6.14 ID Date Data Source [id number] 04/18/2021 10:09:00 AM EDT [facility] Name Value Range Interpretation Code Description Data Jaylene rce(s) Supporting Document(s) COMPREHENSIVE METABOLIC PANEL [facility] COMPREHENSIVE METABOLIC PANEL Sodium [Moles/volume] in Serum or Plasma 136 mEq/L 134 - 153 [facility] Potassium [Moles/volume] in Serum or Plasma 3.7 mEq/L 3.6 - 5.0 [facility] Chloride [Moles/volume] in Serum or Plasma 98 mEq/L 98 - 107 [facility] Carbon dioxide, total [Moles/volume] in Serum or Plasma 28 MEQ/L 22 - 30 [facility] Glucose [Mass/volume] in Serum or Plasma 84 MG/DL 70 - 99 [facility] BUN 18 MG/DL 7 - 21 [facility] Creatinine [Mass/volume] in Serum or Plasma 1.0 MG/DL 0.7 - 1.5 [facility] BUN/CREAT 18 8 - 27 [facility] Protein [Mass/volume] in Serum or Plasma 7.5 G/DL 6.3 - 8.2 [facility] Albumin [Mass/volume] in Serum or Plasma 3.4 G/DL 3.9 - 5.0 L [facility] Globulin [Mass/volume] in Serum by calculation 4.1 GM/DL 2.4 - 3.2 H [facility] A/G RATIO 0.8 0.8 - 2.0 [facility] Calcium [Mass/volume] in Serum or Plasma 8.4 MG/DL 8.4 - 10.2 [facility] Bilirubin.total [Mass/volume] in Serum or Plasma 1.1 MG/DL 0.2 - 1.3 [facility] Alkaline phosphatase [Enzymatic activity/volume] in Serum or Plasma 84 U/L 38 - 126 [facility] Aspartate aminotransferase [Enzymatic activity/volume] in Se rum or Plasma 7 U/L 5 - 40 [facility] Alanine aminotransferase [Enzymatic activity/volume] in Seru m or Plasma 9 U/L 7 - 56 [facility] Anion gap 3 in Serum or Plasma 10.0 mmol/L 8.0 - 16.0 [facility] AGE 51 yrs [facility] NON-AA GFR >60 mL/min [facility] ital AFR AMER GFR >60 mL/min [facility] Ho spital Male GFR In terprentation 20-49 yrs >60 mL/min Normal 50-59 yrs >56 mL/min Normal 60-69 yrs >49 mL/min Normal 70-79yrs >42 mL/min Normal 80 and above >35 mL/min Normal Female GFR Interpretation 20-39 yrs >60 mL/min Normal 40-49 yrs >58 mL/min Normal 50-59 yrs >51 mL/min Normal 60-69 yrs >45 mL/min Normal 70-79 yrs >39 mL/min Normal 80 and above >32 mL/min Normal ID Date Data Source [id number] 04/18/2021 09:26:00 AM T [facility] Name Value Range Interpretation Code Description Data Jaylene rce(s) Supporting Document(s) Digoxin [Mass/volume] in Serum or Plasma 1.0 NG/ML 0.8 - 2.0 [facility] ID Date Data Source [id number] 04/18/2021 09:26:00 AM [facility] Name Value Range Interpretation Code Description Data Jaylene rce(s) Supporting Document(s) Bilirubin.direct [Mass/volume] in Serum or Plasma 0.4 MG/DL 0.1 - 0. 4 [facility] ID Date Data Source [id number] 04/18/2021 09:05:00 AM [facility] Name Value Range Interpretation Code Description Data Jaylene rce(s) Supporting Document(s) CBC NO DIFF [facility] ital COMPLETE BLOOD COUNT Leukocytes [#/volume] in Blood by Automated count 16.0 10^3/uL 4.2 - 11.0 H [facility] Erythrocytes [#/volume] in Blood by Automated count 3.76 10^6/uL 4. 50 - 6.30 L [facility] Hemoglobin [Mass/volume] in Blood 12.3 g/dL 14.0 - 16.0 L [facility] Hematocrit [Volume Fraction] of Blood by Automated count 36.2 % 4 1.0 - 51.0 L [facility] Erythrocyte mean corpuscular volume [Entitic volume] by Auto mated count 96.3 fL 80.0 - 94.0 H [facility] Erythrocyte mean corpuscular hemoglobin [Entitic mass] by Automated count 32.7 pg 27.0 - 34.0 [facility] Erythrocyte mean corpuscular hemoglobin concentration [Mass/volume] by Automated count 34.0 g/dL 31.0 - 36.0 [facility] Erythrocyte distribution width [Ratio] by Automated count 13.2 % 11.5 - 14.8 [facility] Platelets [#/volume] in Blood by Automated count 192 10^3/uL 150 - 45 0 [facility] Platelet mean volume [Entitic volume] in Blood by Automated count 9.6 fL 7.4 - 10.4 [facility] ID Date Data Source [id number] 04/14/2021 08:00:00 AM EDT [facility] Name Value Range Interpretation Code Description Data Jaylene rce(s) Supporting Document(s) SARS coronavirus 2 RNA Not Detected [facility] This lab was ordered by [facility] candace and reported by [facility]. ID Date Data Source [id number] 04/17/2021 06:45:00 PM EDT [facility] Name Value Range Interpretation Code Description Data Jaylene rce(s) Supporting Document(s) SARS-CoV-2, KAT Not Detected Not Detected [facility] This nucleic acid amplification test was developed and its performancecharacteristics determined by [facility]. Nucleic acidamplification tests include RT-PCR and TMA. This test has not beenFDA cleared or approved. This test has been authorized by FDA underan Emergency Use Authorization (EUA). This test is only authorizedfor the duration of time the declaration that circumstances existjustifying the authorization of the emergency use of in vitrodiagnostic tests for detection of SARS-CoV-2 virus and/or diagnosisof COVID-19 infection under section 564(b)(1) of the Act, 21 U.S.C.360bbb-3(b) (1), unless the authorization is terminated or revokedsooner.When diagnostic testing is negative, the possibility of a falsenegative result should be considered in the context of a patient'srecent exposures and the presence of clinical signs and symptomsconsistent with COVID- 19. An individual without symptoms of COVID-19and who is not shedding SARS-CoV-2 virus would expect to have anegative (not detected) result in this assay. ID Date Data Source [id number] 04/07/2021 07:28:00 PM EDT [facility] Name Value Range Interpretation Code Description Data Jaylene rce(s) Supporting Document(s) [facility]$$[id number]$$[id number]$$[id number] DATE/TIME: 04/07/2021 14:07Culture: CULTURE WOUND Status: FinalIsolate 1 Proteus mirabilis Flag: A . . . . . . .7Heavy growth Previous result entered on 04/06/2021 06:00 ET Gram negative rodsAerobic Bacterial Culture: [id number] mirabilis Flag: AIsolate 2 Beta hemolytic Streptococcus, group A Flag: A . . . . . . .4Heavy growthPenicillin and ampicillin are drugs of choice for treatment ofbeta-hemolytic streptococcal infections. Susceptibility testing ofpenicillins and other beta-lactam agents approved by the FDA fortreatment of beta-hemolytic streptococcal infections need not beperformed routinely because nonsusceptible isolates are extremelyrare in any beta-hemolytic streptococcus and have not been reportedfor Streptococcus pyogenes (group A). (CLSI)Beta hemolytic Streptococcus, group A Flag: A -- Continued on next page --Patient: DES NOELH Order: [id number] Page 2Culture: CULTURE WOUND Status: Final ====Isolate 3 Diphtheroids Flag: . . . . . . .5Heavy growthSusceptibility not normally performed on this organism.DiphtheroidsPatient: DES RANDALLNETH Order: [id number] Page 3Culture: CULTURE WOUND Status: Final ====ISOLATE 1 Proteus mirabilis Isolate 1An tibiotic GRACIELA IntUnits ug/mL ----Ampicillin R R . . . . . .28-1Cefazolin R R . . . . . .76-0Cefepime S S . . . . . .6644-9Ceftriaxone S S . . . . . .141-2Cefuroxime S S . . . . . .145-3Ciprofloxacin R R . . . . . .185-9Ertapenem S S . . . . . .55070-8Dvzkzpebyo S S . . . . . .267-5Levofloxacin R R . . . . . .86656- 8Meropenem S S . . . . . .6652-2Piperacillin/Tazobactam S S . . . . . .412-7Tetracycline R R . . . . . .496-0Tobramycin S S . . . . . .508-2Trimethoprim/Sulfa S S . . . . . .516-5P1 Test performed by: [facility] #: [id number] [address] [place] [address] [id number] [facility] [id number] Director : Gerald Lemon MD NPI #:Pull Up Hand : 04/06/21.0706.XMT.SENT REF 04/07/21.1928.XMT.SENT REF ID Date Data Source [id number] 2021 10:32:00 AM EDT [facility] Name Value Range Interpretation Code Description Data Jaylene rce(s) Supporting Document(s) SARS-CoV-2 Not Detected [facility] This lab was ordered by [employer] and reported by [facility]. ID Date Data Source [id number] 03/23/2021 12:48:00 PM EDT [facility] Name Value Range Interpretation Code Description Data Jaylene rce(s) Supporting Document(s) SARS-CoV-2 Not Detected [facility] This lab was ordered by [employer] and reported by [facility]. ID Date Data Source [id number] 03/16/2021 11:00:00 AM EDT [facility] Name Value Range Interpretation Code Description Data Jaylene rce(s) Supporting Document(s) SARS coronavirus 2 RNA Not Detected [facility] This lab was ordered by [facility] [place] and reported by [employer]. ID Date Data Source [id number] 03/18/2021 09:21:00 PM EDT [facility] Name Value Range Interpretation Code Description Data Jaylene rce(s) Supporting Document(s) SARS-CoV-2, KAT Not Detected Not Detected [facility] This nucleic acid amplification test was developed and its performancecharacteristics determined by [facility]. Nucleic acidamplification tests include RT-PCR and TMA. This test has not beenFDA cleared or approved. This test has been authorized by FDA underan Emergency Use Authorization (EUA). This test is only authorizedfor the duration of time the declaration that circumstances existjustifying the authorization of the emergency use of in vitrodiagnostic tests for detection of SARS-CoV-2 virus and/or diagnosisof COVID-19 infection under section 564(b)(1) of the Act, 21 U.S.C.360bbb-3(b) (1), unless the authorization is terminated or revokedsooner.When diagnostic testing is negative, the possibility of a falsenegative result should be considered in the context of a patient'srecent exposures and the presence of clinical signs and symptomsconsistent with COVID- 19. An individual without symptoms of COVID-19and who is not shedding SARS-CoV-2 virus would expect to have anegative (not detected) result in this assay. SARS-CoV-2, KAT 2 DAY TAT Performed [facility] ID Date Data Source [id number] 01/17/2021 03:14:00 PM EDT [facility] Name Value Range Interpretation Code Description Data Jaylene rce(s) Supporting Document(s) Erythrocyte sedimentation rate by Westergren method 66 mm/hr 0 - 20 H [facility] SED RATE REENTER 66 [facility] ID Date Data Source [id number] 01/17/2021 09:32:00 AM EDT [facility] Name Value Range Interpretation Code Description Data Jaylene rce(s) Supporting Document(s) C reactive protein [Mass/volume] in Serum or Plasma by High sensitivity method 13.77 MG/L 1.00 - 3.[address] [facility]/S HS-CRP CUT-OFF: RELATIVE RISK: <1.0 mg/L Low 1.0 - 3.0 mg/L Average >3.0 mg/L High Optimally, the average of HS-CRP results repeated two weeks apart should be used for risk assessment. ID Date Data Source [id number] 12/20/2020 08:20:00 AM EDT [facility] Name Value Range Interpretation Code Description Data Jaylene rce(s) Supporting Document(s) Hemoglobin A1c/Hemoglobin.total in Blood 5.2 % 4.4 - 6.1 [facility] {A1]{HB] ID Date Data Source [id number] 11/22/2020 07:34:00 AM [facility] Name Value Range Interpretation Code Description Data Jaylene rce(s) Supporting Document(s) LAB - SPECIMEN REJECTION [facility] Specimen Integrity/Specimen Recollection The patient sample needs to be resubmitted for the following reason: Test(s) Ordered ESR [facility] Rejection Reason QNS [facility] { One or more of the tests you ordered cannot be performed.{ Please recollect, reorder, and resubmit if needed. ID Date Data Source [id number] 11/22/2020 07:54:00 AM [facility] Name Value Range Interpretation Code Description Data Jaylene rce(s) Supporting Document(s) CBC NO DIFF [facility] Hosp ital COMPLETE BLOOD COUNT Leukocytes [#/volume] in Blood by Automated count 7.6 10^3/uL 4.2 - 1 1.0 [facility] Erythrocytes [#/volume] in Blood by Automated count 4.27 10^6/uL 4. 50 - 6.30 L [facility] Hemoglobin [Mass/volume] in Blood 14.3 g/dL 14.0 - 16.0 [facility] Hematocrit [Volume Fraction] of Blood by Automated count 42.3 % 4 1.0 - 51.0 [facility] Erythrocyte mean corpuscular volume [Entitic volume] by Auto mated count 99.1 fL 80.0 - 94.0 H [facility] Erythrocyte mean corpuscular hemoglobin [Entitic mass] by Automated count 33.5 pg 27.0 - 34.0 [facility] Erythrocyte mean corpuscular hemoglobin concentration [Mass/volume] by Automated count 33.8 g/dL 31.0 - 36.0 [facility] Erythrocyte distribution width [Ratio] by Automated count 12.6 % 11.5 - 14.8 [facility] Platelets [#/volume] in Blood by Automated count 235 10^3/uL 150 - 45 0 [facility] Platelet mean volume [Entitic volume] in Blood by Automated count 9.5 fL 7.4 - 10.4 [facility] ID Date Data Source [id number] 11/22/2020 08:59:00 AM EDT [facility] Name Value Range Interpretation Code Description Data Jaylene rce(s) Supporting Document(s) C reactive protein [Mass/volume] in Serum or Plasma by High sensitivity method 30.50 MG/L 1.00 - 3.00 H [facility] CDC/S HS-CRP CUT-OFF: RELATIVE RISK: <1.0 mg/L Low 1.0 - 3.0 mg/L Average >3.0 mg/L High Optimally, the average of HS-CRP results repeated two weeks apart should be used for risk assessment. ID Date Data Source [id number] 11/22/2020 08:55:00 AM EDT [facility] Name Value Range Interpretation Code Description Data Jaylene rce(s) Supporting Document(s) COMPREHENSIVE METABOLIC PANEL [facility] COMPREHENSIVE METABOLIC PANEL Sodium [Moles/volume] in Serum or Plasma 140 mEq/L 134 - 153 [facility] Potassium [Moles/volume] in Serum or Plasma 4.2 mEq/L 3.6 - 5.0 [facility] Chloride [Moles/volume] in Serum or Plasma 101 mEq/L 98 - 107 [facility] Carbon dioxide, total [Moles/volume] in Serum or Plasma 32 MEQ/L 22 - 30 H [facility] Glucose [Mass/volume] in Serum or Plasma 87 MG/DL 70 - 99 [facility] BUN 8 MG/DL 7 - 21 [facility] Creat[facility] [Mass/volume] in Serum or Plasma 0.8 MG/DL 0.7 - 1.5 [facility] BUN/CREAT 10 8 - 27 [facility] al Protein [Mass/volume] in Serum or Plasma 7.5 G/DL 6.3 - 8.2 [facility] Albumin [Mass/volume] in Serum or Plasma 3.4 G/DL 3.9 - 5.0 L [facility] Globulin [Mass/volume] in Serum by calculation 4.1 GM/DL 2.4 - 3.2 H [facility] A/G RATIO 0.8 0.8 - 2.0 [facility] Calcium [Mass/volume] in Serum or Plasma 8.7 MG/DL 8.4 - 10.2 [facility] Bilirubin.total [Mass/volume] in Serum or Plasma 0.7 MG/DL 0.2 - 1.3 [facility] Alkaline phosphatase [Enzymatic activity/volume] in Serum or Plasma 99 U/L 38 - 126 [facility] Aspartate aminotransferase [Enzymatic activity/volume] in Serum or Plasma 14 U/L 5 - 40 [facility] Alanine aminotransferase [Enzymatic activity/volume] in Seru m or Plasma 11 U/L 7 - 56 [facility] Anion gap 3 in Serum or Plasma 7.0 mmol/L 8.0 - 16.0 L [facility] AGE 50 yrs [facility] al NON-AA GFR >60 mL/min [facility] ital AFR AMER GFR >60 mL/min [facility] Ho spital Male GFR In terprentation 20-49 yrs >60 mL/min Normal 50-59 yrs >56 mL/min Normal 60-69 yrs >49 mL/min Normal 70-79yrs >42 mL/min Normal 80 and above >35 mL/min Normal Female GFR Interpretation 20-39 yrs >60 mL/min Normal 40-49 yrs >58 mL/min Normal 50-59 yrs >51 mL/min Normal 60-69 yrs >45 mL/min Normal 70-79 yrs >39 mL/min Normal 80 and above >32 mL/min Normal ID Date Data Source [id number] 10/20/2020 12:00:00 AM EDT [facility] Name Value Range Interpretation Code Description Data Jaylene rce(s) Supporting Document(s) SARS coronavirus 2 Ag Negative [facility] This lab was ordered by [place] and rep orted by [place]. ID Date Data Source [id number] 10/13/2020 12:00:00 AM EDT [facility] Name Value Range Interpretation Code Description Data Jaylene rce(s) Supporting Document(s) SARS coronavirus 2 Ag Negative [facility] This lab was ordered by [place] and rep orted by [place]. ID Date Data Source [id number] 10/11/2020 08:10:00 AM EDT [facility] Name Value Range Interpretation Code Description Data [facility] rce(s) Supporting Document(s) COMPREHENSIVE METABOLIC PANEL [facility] COMPREHENSIVE METABOLIC PANEL Sodium [Moles/volume] in Serum or Plasma 140 mEq/L 134 - 153 [facility] Potassium [Moles/volume] in Serum or Plasma 3.7 mEq/L 3.6 - 5.0 [facility] Chloride [Moles/volume] in Serum or Plasma 101 mEq/L 98 - 107 [facility] Carbon dioxide, total [Moles/volume] in Serum or Plasma 32 MEQ/L 22 - 30 H [facility] Glucose [Mass/volume] in Serum or Plasma 85 MG/DL 70 - 99 [facility] BUN 8 MG/DL 7 - [facility] Creatinine [Mass/volume] in Serum or Plasma 0.8 MG/DL 0.7 - 1.5 [facility] BUN/CREAT 10 8 - 27 [facility] Protein [Mass/volume] in Serum or Plasma 7.0 G/DL 6.3 - 8.2 [facility] Albumin [Mass/volume] in Serum or Plasma 3.1 G/DL 3.9 - 5.0 L [facility] Globulin [Mass/volume] in Serum by calculation 3.9 GM/DL 2.4 - 3.2 H [facility] A/G RATIO 0.8 0.8 - 2.0 [facility] Calcium [Mass/volume] in Serum or Plasma 8.4 MG/DL 8.4 - 10.2 [facility] Bilirubin.total [Mass/volume] in Serum or Plasma <0.7 MG/DL 0.2 - 1.3 [facility] Alkaline phosphatase [Enzymatic activity/volume] in Serum or Plasma 88 U/L 38 - 126 [facility] Aspartate aminotransferase [Enzymatic activity/volume] in Serum or Plasma 11 U/L 5 - 40 [facility] Alanine aminotransferase [Enzymatic activity/volume] in Seru m or Plasma 12 U/L 7 - 56 [facility] Anion gap 3 in Serum or Plasma 7.0 mmol/L 8.0 - 16.0 L [facility] AGE 50 yrs [facility] al NON-AA GFR >60 mL/min [facility] Hosp ital AFR AMER GFR >60 mL/min [facility] Ho spital Male GFR In terprentation 20-49 yrs >60 mL/min Normal 50-59 yrs >56 mL/min Normal 60-69 yrs >49 mL/min Normal 70-79yrs >42 mL/min Normal 80 and above >35 mL/min Normal Female GFR Interpretation 20-39 yrs >60 mL/min Normal 40-49 yrs >58 mL/min Normal 50-59 yrs >51 mL/min Normal 60-69 yrs >45 mL/min Normal 70-79 yrs >39 mL/min Normal 80 and above >32 mL/min Normal ID Date Data Source [id number] 10/06/2020 08:34:00 AM EDT [facility] Name Value Range Interpretation Code Description Data Jaylene rce(s) Supporting Document(s) CVE PANEL [facility] LIPID PANEL Cholesterol [Mass/volume] in Serum or Plasma 77 MG/DL 131 - 200 L [facility] Deprecated Triglyceride [Mass/volume] in Serum or Plasma 65 MG/DL 3 5 - 160 [facility] HDL 25 MG/DL 29 - 86 L [facility] Cholesterol in LDL [Mass/volume] in Serum or Plasma by Direc t assay 48 mg/dL 65 - 175 L [facility] Cholesterol.total/Cholesterol in HDL [Mass Ratio] in Serum o r Plasma 3.1 3.4 - 4.9 L [facility] LDL/HDL 1.92 1.00 - 3.55 [facility] ital CVE RISK CHOL/HDL LDL/HDLMEN: 1/2 AVERAGE 3.43 1.00 AVERAGE 4.97 3.55 2X AVERAGE 9.55 6.25 3X AVERAGE 23.99 7.99WOMEN: 1/2 AVERAGE 3.27 1.47 AVERAGE 4.44 3.22 2X AVERAGE 7.05 5.03 3X AVERAGE 11.04 6.14 ID Date Data Source [id number] 10/06/2020 08:34:00 AM EDT [facility] Name Value Range Interpretation Code Description Data Jaylene rce(s) Supporting Document(s) COMPREHENSIVE METABOLIC PANEL [facility] COMPREHENSIVE METABOLIC PANEL Sodium [Moles/volume] in Serum or Plasma 142 mEq/L 134 - 153 [facility] Potassium [Moles/volume] in Serum or Plasma 3.5 mEq/L 3.6 - 5.0 L [facility] Chloride [Moles/volume] in Serum or Plasma 104 mEq/L 98 - 107 [facility] Carbon dioxide, total [Moles/volume] in Serum or Plasma 31 MEQ/L 22 - 30 H [facility] Glucose [Mass/volume] in Serum or Plasma 80 MG/DL 70 - 99 [facility] BUN 7 MG/DL 7 - 21 [facility] Creatinine [Mass/volume] in Serum or Plasma 0.8 MG/DL 0.7 - 1.5 [facility] BUN/CREAT 9 8 - 27 [facility] al Protein [Mass/volume] in Serum or Plasma 6.5 G/DL 6.3 - 8.2 [facility] Albumin [Mass/volume] in Serum or Plasma 3.0 G/DL 3.9 - 5.0 L [facility] Globulin [Mass/volume] in Serum by calculation 3.5 GM/DL 2.4 - 3.2 H [facility] A/G RATIO 0.9 0.8 - 2.0 [facility] Calcium [Mass/volume] in Serum or Plasma 7.6 MG/DL 8.4 - 10.2 L [facility] Bilirubin.total [Mass/volume] in Serum or Plasma <0.7 MG/DL 0.2 - 1.3 [facility] Alkaline phosphatase [Enzymatic activity/volume] in Serum or Plasma 83 U/L 38 - 126 [facility] Aspartate aminotransferase [Enzymatic activity/volume] in Serum or Plasma 11 U/L 5 - 40 [facility] Alanine aminotransferase [Enzymatic activity/volume] in Seru m or Plasma 11 U/L 7 - 56 [facility] Anion gap 3 in Serum or Plasma 7.0 mmol/L 8.0 - 16.0 L [facility] AGE 50 yrs [facility] Hospit al NON-AA GFR >60 mL/min [facility] Hosp ital AFR AMER GFR >60 mL/min [facility] Ho spital Male GFR In terprentation 20-49 yrs >60 mL/min Normal 50-59 yrs >56 mL/min Normal 60-69 yrs >49 mL/min Normal 70-79yrs >42 mL/min Normal 80 and above >35 mL/min Normal Female GFR Interpretation 20-39 yrs >60 mL/min Normal 40-49 yrs >58 mL/min Normal 50-59 yrs >51 mL/min Normal 60-69 yrs >45 mL/min Normal 70-79 yrs >39 mL/min Normal 80 and above >32 mL/min Normal ID Date Data Source [id number] 10/06/2020 08:33:00 AM EDT [facility] Name Value Range Interpretation Code Description Data Jaylene rce(s) Supporting Document(s) Hemoglobin A1c/Hemoglobin.total in Blood 5.1 % 4.4 - 6.1 [facility] {A1]{HB] ID Date Data Source [id number] 10/06/2020 07:56:00 AM [facility] Name Value Range Interpretation Code Description Data Jaylene rce(s) Supporting Document(s) CBC NO DIFF [facility] ital COMPLETE BLOOD COUNT Leukocytes [#/volume] in Blood by Automated count 6.6 10^3/uL 4.2 - 1 1.0 [facility] Erythrocytes [#/volume] in Blood by Automated count 3.72 10^6/uL 4. 50 - 6.30 L [facility] Hemoglobin [Mass/volume] in Blood 12.3 g/dL 14.0 - 16.0 L [facility] Hematocrit [Volume Fraction] of Blood by Automated count 35.6 % 4 1.0 - 51.0 L [facility] Erythrocyte mean corpuscular volume [Entitic volume] by Auto mated count 95.7 fL 80.0 - 94.0 H [facility] Erythrocyte mean corpuscular hemoglobin [Entitic mass] by Automated count 33.1 pg 27.0 - 34.0 [facility] Erythrocyte mean corpuscular hemoglobin concentration [Mass/volume] by Automated count 34.6 g/dL 31.0 - 36.0 [facility] Erythrocyte distribution width [Ratio] by Automated count 13.6 % 11.5 - 14.8 [facility] Platelets [#/volume] in Blood by Automated count 225 10^3/uL 150 - 45 0 [facility] Platelet mean volume [Entitic volume] in Blood by Automated count 9.1 fL 7.4 - 10.4 [facility] ID Date Data Source [id number] 09/30/2020 11:53:00 AM EDT [facility] Name Value Range Interpretation Code Description Data Jaylene rce(s) Supporting Document(s) CBC NO DIFF [facility] ital COMPLETE BLOOD COUNT Leukocytes [#/volume] in Blood by Automated count 7.4 10^3/uL 4.2 - 1 1.0 [facility] Erythrocytes [#/volume] in Blood by Automated count 4.19 10^6/uL 4. 50 - 6.30 L [facility] Hemoglobin [Mass/volume] in Blood 13.9 g/dL 14.0 - 16.0 L [facility] Hematocrit [Volume Fraction] of Blood by Automated count 40.6 % 4 1.0 - 51.0 L [facility] Erythrocyte mean corpuscular volume [Entitic volume] by Auto mated count 96.9 fL 80.0 - 94.0 H [facility] Erythrocyte mean corpuscular hemoglobin [Entitic mass] by Automated count 33.2 pg 27.0 - 34.0 [facility] Erythrocyte mean corpuscular hemoglobin concentration [Mass/volume] by Automated count 34.2 g/dL 31.0 - 36.0 [facility] Erythrocyte distribution width [Ratio] by Automated count 14.1 % 11.5 - 14.8 [facility] Platelets [#/volume] in Blood by Automated count 255 10^3/uL 150 - 45 0 [facility] Platelet mean volume [Entitic volume] in Blood by Automated count 9.1 fL 7.4 - 10.4 [facility] ID Date Data Source [id number] 10/03/2020 12:09:00 PM EDT [facility] Name Value Range Interpretation Code Description Data Jaylene rce(s) Supporting Document(s) CULTURE WOUND [facility] Ho spital _CULTURE WOUND_$$[id number] DATE/TIME: 10/03/2020 12:06Culture: CULTURE WOUND Status: FinalAerobic Bacterial Culture: [id number] skin quita Previous result entered on 10/02/2020 07:19 ET Specimen has been received and testing has been initiated.P1 Test performed by: [facility] #: [id number] [address] [place] [address] [id number] [facility] [id number] Director : Gerald Lemon MD NPI #:Pull Up Hand : 10/03/[email or web address].SENT REF 10/03/20.1209.XMT.SENT REF ID Date Data Source [id number] 09/13/2020 09:12:00 AM EST [facility] Name Value Range Interpretation Code Description Data Jaylene rce(s) Supporting Document(s) Digoxin [Mass/volume] in Serum or Plasma 0.9 NG/ML 0.8 - 2.0 [facility] ID Date Data Source [id number] 08/12/2020 12:00:00 AM EST [facility] Name Value Range Interpretation Code Description Data Jaylene rce(s) Supporting Document(s) SARS coronavirus 2 Ag Negative [facility] This lab was ordered by [place] and rep orted by [place]. ID Date Data Source [id number] 07/28/2020 12:00:00 AM EST [facility] Name Value Range Interpretation Code Description Data Jaylene rce(s) Supporting Document(s) SARS-CoV2 Rapid Antigen Positive [facility] This lab was ordered by [facility] and reported by [facility]. ID Date Data Source [id number] 07/25/2020 12:00:00 PM EST [facility] Name Value Range Interpretation Code Description Data Jaylene rce(s) Supporting Document(s) SARS coronavirus 2 RNA Not Detected [facility] [place] This lab was ordered by [facility] and reported by [employer]. ID Date Data Source [id number] 07/29/2020 09:07:00 AM EST [facility] Name Value Range Interpretation Code Description Data Jaylene rce(s) Supporting Document(s) SARS-CoV-2, KAT Not Detected Not Detected [facility] This nucleic acid amplification test was developed and its performancecharacteristics determined by [employer]. Nucleic acidamplification tests include RT-PCR and TMA. This test has not beenFDA cleared or approved. This test has been authorized by FDA underan Emergency Use Authorization (EUA). This test is only authorizedfor the duration of time the declaration that circumstances existjustifying the authorization of the emergency use of in vitrodiagnostic tests for detection of SARS-CoV-2 virus and/or diagnosisof COVID-19 infection under section 564(b)(1) of the Act, 21 U.S.C.360bbb-3(b) (1), unless the authorization is terminated or revokedsooner.When diagnostic testing is negative, the possibility of a falsenegative result should be considered in the context of a patient'srecent exposures and the presence of clinical signs and symptomsconsistent with COVID- 19. An individual without symptoms of COVID-19and who is not shedding SARS-CoV-2 virus would expect to have anegative (not detected) result in this assay. ORDER COVID 19 2 DAY NO [facility] ID Date Data Source [id number] 07/18/2020 12:00:00 PM EST [facility] Name Value Range Interpretation Code Description Data Jaylene rce(s) Supporting Document(s) SARS coronavirus 2 RNA Not Detected [facility] [place] This lab was ordered by [facility] and reported by [email or web address]. ID Date Data Source [id number] 07/21/2020 06:21:00 AM EST [facility] Name Value Range Interpretation Code Description Data Jaylene rce(s) Supporting Document(s) SARS-CoV-2, KAT Not Detected Not Detected [facility] This nucleic acid amplification test was developed and its performancecharacteristics determined by [employer]. Nucleic acidamplification tests include PCR and TMA. This test has not been FDAcleared or approved. This test has been authorized by FDA under anEmergency Use Authorization (EUA). This test is only authorized forthe duration of time the declaration that circumstances existjustifying the authorization of the emergency use of in vitrodiagnostic tests for detection of SARS-CoV-2 virus and/or diagnosisof COVID-19 infection under section 564(b)(1) of the Act, 21 U.S.C.360bbb-3(b) (1), unless the authorization is terminated or revokedsooner.When diagnostic testing is negative, the possibility of a falsenegative result should be considered in the context of a patient'srecent exposures and the presence of clinical signs and symptomsconsistent with COVID- 19. An individual without symptoms of COVID-19and who is not shedding SARS-CoV-2 virus would expect to have anegative (not detected) result in this assay. ORDER COVID 19 2 DAY YES [facility] ID Date Data Source [id number] 07/15/2020 02:25:00 PM EST [facility] [place] Name Value Range Interpretation Code Description Data Jaylene rce(s) Supporting Document(s) Hemoglobin A1c/Hemoglobin.total in Blood 5.8 [facility] ([facility]) ID Date Data Source [id number] 07/15/2020 02:25:00 PM EST [facility] [place] Name Value Range Interpretation Code Description Data Jaylene rce(s) Supporting Document(s) Albumin [Mass/volume] in Serum or Plasma 3.5 [facility] ([facility]) Calcium [Mass/volume] in Serum or Plasma 8.8 [facility] ([facility]) Alanine aminotransferase [Enzymatic activity/volume] in Serum or Pl asma 21 [facility] ([facility]) Chloride [Moles/volume] in Serum or Plasma 99 [facility] ([facility]) Alkaline phosphatase [Enzymatic activity/volume] in Serum or Plasma 9 5 [facility] ([facility]) Carbon dioxide, total [Moles/volume] in Serum or Plasma 30 [facility] ([facility]) Protein [Mass/volume] in Serum or Plasma 7.4 [facility] ([facility]) Potassium [Moles/volume] in Serum or Plasma 4.4 [facility] ([facility]) Sodium 136 [facility] Urea nitrogen [Mass/volume] in Serum or Plasma 14 [facility] ([facility]) Glucose 99 98-107 [facility] ([facility]) Aspartate aminotransferase [Enzymatic activity/volume] in Serum or Plasma 22 [facility] ([facility]) Creatinine For GFR 0.9 [facility] ([facility]) ID Date Data Source [id number] 07/15/2020 02:25:00 PM EST [facility]) Name Value Range Interpretation Code Description Data Jaylene rce(s) Supporting Document(s) Thyroid Stimulating Hormone 2.53 [facility] ([facility]) ID Date Data Source [id number] 07/15/2020 02:25:00 PM EST [facility] ([facility]) Name Value Range Interpretation Code Description Data Jaylene rce(s) Supporting Document(s) Red Blood Count 4.94 4.50-6.30 [facility] ([facility] White Blood Count 8.0 4.2-11.0 [facility] ([facility]) Hemoglobin 16.2 14.0-16.0 [facility] ([facility]) Hematocrit 46.8 41.0-51.0 [facility] ([facility]) Platelets 259 150-450 [facility] ([facility]) ID Date Data Source [id number] 07/15/2020 02:25:00 PM EST [facility] ([facility]) Name Value Range Interpretation Code Description Data Jaylene rce(s) Supporting Document(s) Free T4 1.16 [facility] ([facility]) ID Date Data Source [id number] 07/15/2020 04:16:00 PM EST [facility] Name Value Range Interpretation Code Description Data Jaylene rce(s) Supporting Document(s) Thyroxine (T4) free index in Serum or Plasma by calculation 1.16 NG/DL 0.93 - 1.70 [facility] ID Date Data Source [id number] 07/15/2020 04:16:00 PM EST [facility] Name Value Range Interpretation Code Description Data Jaylene rce(s) Supporting Document(s) Thyrotropin [Units/volume] in Serum or Plasma by Detec tion limit <= 0.05 mIU/L 2.53 uIU/mL 0.47 - 5.01 [facility] ID Date Data Source [id number] 07/15/2020 04:04:00 PM EST [facility] Name Value Range Interpretation Code Description Data Jaylene rce(s) Supporting Document(s) [facility] Cholesterol [Mass/volume] in Serum or Plasma 104 MG/DL 131 - 200 L [facility] Deprecated Triglyceride [Mass/volume] in Serum or Plasma 97 MG/DL 3 5 - 160 [facility] HDL 29 MG/DL 29 - 86 [facility] Cholesterol in LDL [Mass/volume] in Serum or Plasma by Direc t assay 63 mg/dL 65 - 175 L [facility] Cholesterol.total/Cholesterol in HDL [Mass Ratio] in Serum o r Plasma 3.6 3.4 - 4.9 [facility] LDL/HDL 2.17 1.00 - 3.55 [facility] CVE RISK CHOL/HDL LDL/HDLMEN: 1/2 AVERAGE 3.43 1.00 AVERAGE 4.97 3.55 2X AVERAGE 9.55 6.25 3X AVERAGE 23.99 7.99WOMEN: 1/2 AVERAGE 3.27 1.47 AVERAGE 4.44 3.22 2X AVERAGE 7.05 5.03 3X AVERAGE 11.04 6.14 ID Date Data Source [id number] 07/15/2020 04:04:00 PM EST [facility] Name Value Range Interpretation Code Description Data Jaylene rce(s) Supporting Document(s) COMPREHENSIVE METABOLIC PANEL [facility] COMPREHENSIVE METABOLIC PANEL Sodium [Moles/volume] in Serum or Plasma 136 mEq/L 134 - 153 [facility] Potassium [Moles/volume] in Serum or Plasma 4.4 mEq/L 3.6 - 5.0 [facility] Chloride [Moles/volume] in Serum or Plasma 99 mEq/L 98 - 107 [facility] Carbon dioxide, total [Moles/volume] in Serum or Plasma 30 MEQ/L 22 - 30 [facility] Glucose [Mass/volume] in Serum or Plasma 99 MG/DL 65 - 110 [facility] BUN 14 MG/DL 7 - 21 [facility] Creatinine [Mass/volume] in Serum or Plasma 0.9 MG/DL 0.7 - 1.5 [facility] BUN/CREAT 16 8 - 27 [facility] Protein [Mass/volume] in Serum or Plasma 7.4 G/DL 6.3 - 8.2 [facility] Albumin [Mass/volume] in Serum or Plasma 3.5 G/DL 3.9 - 5.0 L [facility] Globulin [Mass/volume] in Serum by calculation 3.9 GM/DL 2.4 - 3.2 H [facility] A/G RATIO 0.9 0.8 - 2.0 [facility] Calcium [Mass/volume] in Serum or Plasma 8.8 MG/DL 8.4 - 10.2 [facility] Bilirubin.total [Mass/volume] in Serum or Plasma 0.8 MG/DL 0.2 - 1.3 [facility] Alkaline phosphatase [Enzymatic activity/volume] in Serum or Plasma 95 U/L 38 - 126 [facility] Aspartate aminotransferase [Enzymatic activity/volume] in Serum or Plasma 22 U/L 5 - 40 [facility] Alanine aminotransferase [Enzymatic activity/volume] in Seru m or Plasma 21 U/L 7 - 56 [facility] Anion gap 3 in Serum or Plasma 7.0 mmol/L 8.0 - 16.0 L [facility] AGE 50 yrs [facility] NON-AA GFR >60 mL/min [facility] ital AFR AMER GFR >60 mL/min [facility] Ho spital Male GFR In terprentation 20-49 yrs >60 mL/min Normal 50-59 yrs >56 mL/min Normal 60-69 yrs >49 mL/min Normal 70-79yrs >42 mL/min Normal 80 and above >35 mL/min Normal Female GFR Interpretation 20-39 yrs >60 mL/min Normal 40-49 yrs >58 mL/min Normal 50-59 yrs >51 mL/min Normal 60-69 yrs >45 mL/min Normal 70-79 yrs >39 mL/min Normal 80 and above >32 mL/min Normal ID Date Data Source [id number] 07/15/2020 04:04:00 PM EST [facility] Name Value Range Interpretation Code Description Data Jaylene rce(s) Supporting Document(s) Hemoglobin A1c/Hemoglobin.total in Blood 5.8 % 4.4 - 6.1 [facility] {A1]{HB] ID Date Data Source [id number] 07/15/2020 03:36:00 PM EST [facility] Name Value Range Interpretation Code Description Data Jaylene rce(s) Supporting Document(s) CBC NO DIFF [facility] ital COMPLETE BLOOD COUNT Leukocytes [#/volume] in Blood by Automated count 8.0 10^3/uL 4.2 - 1 1.0 [facility] Erythrocytes [#/volume] in Blood by Automated count 4.94 10^6/uL 4. 50 - 6.30 [facility] Hemoglobin [Mass/volume] in Blood 16.2 g/dL 14.0 - 16.0 H [facility] Hematocrit [Volume Fraction] of Blood by Automated count 46.8 % 4 1.0 - 51.0 [facility] Erythrocyte mean corpuscular volume [Entitic volume] by Auto mated count 94.7 fL 80.0 - 94.0 H [facility] Erythrocyte mean corpuscular hemoglobin [Entitic mass] by Automated count 32.8 pg 27.0 - 34.0 [facility] Erythrocyte mean corpuscular hemoglobin concentration [Mass/volume] by Automated count 34.6 g/dL 31.0 - 36.0 [facility] Erythrocyte distribution width [Ratio] by Automated count 13.5 % 11.5 - 14.8 [facility] Platelets [#/volume] in Blood by Automated count 259 10^3/uL 150 - 45 0 [facility] Platelet mean volume [Entitic volume] in Blood by Automated count 9.7 fL 7.4 - 10.4 [facility] ID Date Data Source [id number] 07/13/2020 10:26:00 AM EST [facility] Name Value Range Interpretation Code Description Data Jaylene rce(s) Supporting Document(s) SARS coronavirus 2 RNA [Presence] in Res piratory specimen by KAT with probe detection NEGATIVE [facility] This lab was ordered by [facility] a nd reported by [facility]. ID Date Data Source [id number] 07/05/2020 02:33:00 PM EST [facility] Name Value Range Interpretation Code Description Data Jaylene rce(s) Supporting Document(s) SARS coronavirus 2 RNA [Presence] in Res piratory specimen by KAT with probe detection [facility] This lab was ordered by [facility] a nd reported by [facility]. Procedure Social History No Information Vital Signs ID Date Data Source [id number] Name Value Range Interpretation Code Description Data Source(s) Body height 72 [in_i] 72 [in_i] [facility] ([facility] 6'0" Body weight 270.00 [lb_av] 270.00 [lb_av] [facility] T ([facility] Systolic blood pressure 124 mm[Hg] 124 mm[Hg] [facility] ([facility] Diastolic blood pressure 64 mm[Hg] 64 mm[Hg] [facility] ([facility] Heart rate 66 /min 66 /min [facility] ([facility] Body mass index (BMI) [Ratio] 36.6 kg/m2 36.6 k g/m2 [facility] ([facility] Diastolic blood pressure 84 mm[Hg] 84 mm[Hg] [facility] ([facility], ) Systolic blood pressure 150 mm[Hg] 150 mm[Hg] M [facility] ([facility], ) Body surface area Derived from formula 2.47 m2 2.47 m2 [facility] Body temperature 98.3 [degF] 98.3 [degF] [facility], [facility] Body mass index (BMI) [Ratio] 38.3 kg/m2 38.3 k g/m2 [facility] [place] body weight 178 [lb_av] 178 [lb_av] [facility] T ([facility]) Heart rate 79 /min 79 /min [facility] ([facility]) Body weight 128.085 kg 128.085 kg [facility] ([facility]) Body height 72 [in_i] 72 [in_i] [facility] ([facility]) 6'0" Body weight 282.38 [lb_av] 282.38 [lb_av] [facility] T ([facility]) Body surface area Derived from formula 2.53 m2 2.53 m2 [facility] ([facility]) Diastolic blood pressure 79 mm[Hg] 79 mm[Hg] [facility] ([facility]) Body height 72 [in_i] 72 [in_i] [facility] ([facility]) 6'0" Body weight 300.44 [lb_av] 300.44 [lb_av] [facility] T ([facility]) Body mass index (BMI) [Ratio] 40.7 kg/m2 40.7 k g/m2 [facility] ([facility]) [place] body weight 178 [lb_av] 178 [lb_av] [facility] ([facility]) Body weight 136.278 kg 136.278 kg [facility] ([facility]) Systolic blood pressure 130 mm[Hg] 130 mm[Hg] M [facility] ([facility]) Body weight 136.278 kg 136.278 kg [facility] ([facility]) Body height 72 [in_i] 72 [in_i] [facility] ([facility]) 6'0" Body weight 300.44 [lb_av] 300.44 [lb_av] [facility] T ([facility]) Body mass index (BMI) [Ratio] 40.7 kg/m2 40.7 k g/m2 [facility] ([facility]) [place] body weight 178 [lb_av] 178 [lb_av] [facility] ([facility]) Body surface area Derived from formula 2.53 m2 2.53 m2 [facility] ([facility], )
[2021-05-17] MEDS ORDERED: fentaNYL 100 MCG/2 ML INJECTION (J3010) As Ordered ONE (13:22)
[2021-05-17] MEDS ORDERED: ONDANSETRON 4MG/2ML VIAL As Ordered ONE (13:22)
[2021-05-17] MEDS ORDERED: MIDAZOLAM INJ 2MG/2ML VIAL (J2250 PER 1MG) As Ordered ONE (13:22)
[2021-05-17] MEDS ORDERED: propofoL 200 MG/20 ML VIAL As Ordered ONE (13:22)
[2021-05-17] MEDS ORDERED: KETOROLAC 60MG 2ML VIAL As Ordered ONE (13:22)
[2021-05-17] MEDS ORDERED: LIDOCAINE 2% 100MG/5ML SDV (FOR ANES.) As Ordered ONE (13:22)
[2021-05-17] MEDS ORDERED: METOCLOPRAMIDE INJ 10MG/2ML VIAL (J2765 PER 1) As Ordered ONE (15:09)
[2021-05-17] MEDS ORDERED: LR 1,000 ML IV SCH (15:30)
[2021-05-17] MEDS ORDERED: oxyCODONE 5MG TAB PO PRN (15:30)
[2021-05-17] MEDS ORDERED: ONDANSETRON 4MG/2ML VIAL IV PRN (15:30)
[2021-05-17 15:55] VITALS: BP 138/74
--- NOTE | 2021-05-17 17:21 | RO ---
OPERATIVE NOTE DATE OF OPERATION: 05/17/2021 SURGEON: Andrew Johnson DPM THREAD CUTTER TENDER: None. 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 PROCEDURE: Left fifth metatarsal head excision. ANESTHESIA: Monitored anesthesia care. PREOPERATIVE INJECTION: 10 cc of a one-to-one mixture of 1% lidocaine plain and 0.5% Marcaine plain. ESTIMATED BLOOD LOSS: Minimal. MATERIALS: 3-0 nylon. SPECIMENS: Left fifth metatarsal head. COMPLICATIONS: None. CONDITION: Stable. OPERATIVE INDICATIONS: Sandoval Cotton is a 51-year-old diabetic male with long-standing ulceration to his left foot. X-rays were taken which showed findings consistent with osteomyelitis. The decision was made to bring him to the operating room for metatarsal head excision. The patient's side and site were identified and marked in the preoperative area. Consent was reviewed and obtained. The risks, complications, and alternatives to the procedure were explained to the patient in detail and all questions were answered. PROCEDURE: The patient was brought to the operating room on a stretcher in the supine position. Monitored anesthesia care was delivered by the anesthesia team. Preoperative injection of 10 cc of a one-to-one mixture of 1% lidocaine plain and 0.5% Marcaine plain were injected to the left foot. The left foot was prepped and draped in normal sterile fashion. The tourniquet was applied to the left ankle and inflated at 250 mmHg. A dorsal incision was made over the fifth metatarsal head and carried through with a #15 blade. Dissection was carried until the metatarsal head was identified. It was noted to be in necrotic condition. McGlamry elevator and a 15-blade were used to remove the soft tissue attachments and the metatarsal bone was resected with the sagittal saw. The base of the proximal phalanx was similarly noted to be in poor condition and the base of this was removed with the sagittal saw as well. The site was irrigated with normal saline. Closure was performed with 3-0 nylon. Sterile dressings were applied. The patient was brought to the PACU with vital signs stable and neurovascular status intact. He will be weightbearing as tolerated and follow up in the office in two days.
== END 2021-05-17 16:46 | disposition home or self-care (01) ==
LOC: M SDC 12:19
PROVIDERS: ATTEND Podiatrist Foot & Ankle Surgery
DX: M86.072 Acute hematogenous osteomyelitis, left ankle and foot (principal); E11.69 Type 2 diabetes mellitus with other specified complication; I48.91 Unspecified atrial fibrillation; I11.9 Hypertensive heart disease without heart failure; E78.00 Pure hypercholesterolemia, unspecified; I42.9 Cardiomyopathy, unspecified; I25.10 Atherosclerotic heart disease of native coronary artery without angina pectoris; K21.9 Gastro-esophageal reflux disease without esophagitis; F03.90 Unspecified dementia, unspecified severity, without behavioral disturbance, psychotic disturbance, mood disturbance, and anxiety; I69.319 Unspecified symptoms and signs involving cognitive functions following cerebral infarction; Z79.899 Other long term (current) drug therapy; Z79.2 Long term (current) use of antibiotics; Z79.01 Long term (current) use of anticoagulants; Z79.84 Long term (current) use of oral hypoglycemic drugs; Z79.02 Long term (current) use of antithrombotics/antiplatelets
CPT/HCPCS: 28113; 87070; 87075; 87077; 87186; 88304; 88311; J0690; J1885; J2250; J2405; J2765; J3010

== ENCOUNTER 2024-03-03 12:56 | Inpatient (IN) | payer MEDICARE, BC, OTHER, MEDICAID ==
[~2024-03-03] VITALS: Ht 182.9 cm; Wt 157.1 kg
[~2024-03-03 12:56] MED LIST changes: -BUPIVACAINE HCL 0.5% 30 ML VIAL As Ordered ONE; +CLOP75TA99 PO; -LIDOCAINE 1% MDV 20ML VIAL As Ordered ONE; -LR 1,000 ML IV ONE; -PLAV1TAB2 PO; -ceFAZolin SOD 2 GM in IV 1 EA IV ONE; -dexameTHASONE 4 MG/ML 1ML VIAL (J1100 PER 1MG) As Ordered ONE
[2024-03-03 14:13] LABS: BASO % 0.6 % (0.0-1.0); EOS # 0.3 10^3/uL (0.0-0.5); HEMATOCRIT 38.3 % (42.0-52.0); HEMOGLOBIN 12.4 g/dl (13.5-17.5); LYMPH % 27.5 % (24.0-44.0); MEAN CORPUSCULAR HEMOGLOBIN 31.5 pg (27.0-33.0); MEAN CORPUSCULAR HGB CONC 32.4 g/dl (32.0-36.5); MEAN CORPUSCULAR VOLUME 97.2 fl (80.0-96.0); MONO # 1.4 10^3/uL (0.0-0.8); MONO % 19.3 % (2.0-8.0); NEUTROPHILS # 3.5 10^3/uL (1.5-8.5); NEUTROPHILS % 48.3 % (36.0-66.0); PLATELET COUNT, AUTOMATED 254 10^3/uL (150-450); RED BLOOD COUNT 3.94 10^6/uL (4.30-6.10); WHITE BLOOD COUNT 7.2 10^3/uL (4.0-10.0)
[2024-03-03 14:22] LABS: CALCIUM LEVEL 7.9 MG/DL (8.5-10.1); CREATININE FOR GFR 1.41 MG/DL (0.70-1.30); POTASSIUM SERUM 4.5 MMOL/L (3.5-5.1)
[2024-03-03 14:44] LABS: C REACTIVE PROTEIN QUANTITATIV 13.6 MG/DL (<1.0)
[2024-03-03] MEDS ORDERED: MAALOX 30 ML SUSP *UDC PO PRN (17:25)
[2024-03-03] MEDS ORDERED: ACETAMINOPHEN TAB 650MG DOSE (2X325MG) PO PRN (17:25)
[2024-03-03] MEDS ORDERED: MOM 30ML SUSPENSION UDC PO PRN (17:25)
[2024-03-03] MEDS ORDERED: GLUCAGON INJ 1MG VIAL SC PRN (17:25)
[2024-03-03] MEDS ORDERED: DEXTROSE 50% 50ML SYRINGE IV PRN (17:25)
[2024-03-03] MEDS ORDERED: GLUCOSE 4 GM CHEW PO PRN (17:25)
[2024-03-03] MEDS: INSULIN LISPRO (NovoLOG) PER UNIT SC SCH ×2 (17:30→19:07)
[2024-03-03] MEDS ORDERED: ATEN25TA PO (18:56)
[2024-03-03] MEDS: VANCOMYCIN HCL 1,000 MG, VIAL MATE ADAPTER 1 EACH in D5W 250 ML IV ONE ×2 (19:04→21:08)
[2024-03-03] MEDS ORDERED: FURO40TA2 PO (19:06)
[2024-03-03] MEDS ORDERED: DIVA250T67 PO (19:06)
[2024-03-03] MEDS ORDERED: LEXA1TAB PO (19:06)
[2024-03-03] MEDS ORDERED: POTA20PW PO (19:06)
[2024-03-03] MEDS ORDERED: MIRA3350 PO (19:06)
[2024-03-03] MEDS ORDERED: DIVA500T9 PO (19:06)
[2024-03-03] MEDS ORDERED: SENN-52 PO (19:06)
[2024-03-03] MEDS ORDERED: LEVO1TAB39 PO (19:06)
[2024-03-03] MEDS ORDERED: ATOR1TAB19 PO (19:06)
[2024-03-03] MEDS ORDERED: HOME MED LIST COMPLETE! XX SCH (19:10)
[2024-03-03 19:18] LABS: HEMOGLOBIN A1c 4.9 % (4.0-6.0)
[2024-03-03 20:28] VITALS: BP 124/103; TEMP 97.7; O2SAT 96
[2024-03-03] MEDS ORDERED: CEFEPIME HCL 2 GM in D5W MINI-BAG PLUS 50 ML IV SCH (21:00)
[2024-03-03] MEDS: NS 1,000 ML IV ONE (23:03)
[2024-03-04] MEDS: CEFEPIME HCL 2 GM in D5W MINI-BAG PLUS 50 ML IV SCH (00:18)
[2024-03-04] MEDS: VANCOMYCIN HCL 1,000 MG, VIAL MATE ADAPTER 1 EACH in D5W 250 ML IV SCH (03:10)
[2024-03-04 04:42] VITALS: BP 109/55; TEMP 97.7; O2SAT 94
[2024-03-04] MEDS: VANCOMYCIN HCL 750 MG, VIAL MATE ADAPTER 1 EACH in D5W 250 ML IV SCH (04:54)
[2024-03-04 06:09] LABS: HEMATOCRIT 33.2 % (42.0-52.0); HEMOGLOBIN 11.2 g/dl (13.5-17.5); MEAN CORPUSCULAR HEMOGLOBIN 32.2 pg (27.0-33.0); MEAN CORPUSCULAR HGB CONC 33.7 g/dl (32.0-36.5); MEAN CORPUSCULAR VOLUME 95.4 fl (80.0-96.0); PLATELET COUNT, AUTOMATED 234 10^3/uL (150-450); RED BLOOD COUNT 3.48 10^6/uL (4.30-6.10); WHITE BLOOD COUNT 6.9 10^3/uL (4.0-10.0)
[2024-03-04 06:32] LABS: BLOOD UREA NITROGEN 20 MG/DL (9-23); CALCIUM LEVEL 7.7 MG/DL (8.5-10.1); CARBON DIOXIDE LEVEL 28 MMOL/L (20-31); CHLORIDE LEVEL 105 MMOL/L (98-107); CREATININE FOR GFR 1.15 MG/DL (0.70-1.30); GLOMERULAR FILTRATION RATE > 60.0 (>56); GLUCOSE, FASTING 100 MG/DL (60-100); MAGNESIUM LEVEL 1.8 MG/DL (1.8-2.4); POTASSIUM SERUM 3.9 MMOL/L (3.5-5.1); SODIUM LEVEL 137 MMOL/L (136-145)
[2024-03-04 06:55] LABS: ERYTHROCYTE SEDIMENTATION RATE 59 mm/hr (0-20)
[2024-03-04 07:34] LABS: BASO % 0.6 % (0.0-1.0); EOS # 0.3 10^3/uL (0.0-0.5); EOS % 4.7 % (0.0-3.0); LYMPH # 2.1 10^3/uL (1.5-5.0); LYMPH % 31.1 % (24.0-44.0); MONO # 1.3 10^3/uL (0.0-0.8); MONO % 19.3 % (2.0-8.0)
[2024-03-04] MEDS ORDERED: DIVA500T94 PO (07:34)
[2024-03-04] MEDS ORDERED: DIVALPROEX 500MG *ER* TAB PO SCH ×2 (09:00)
[2024-03-04] MEDS: DIVALPROEX 250MG TAB PO SCH (09:08)
[2024-03-04] MEDS: DIVALPROEX 500 MG TAB PO SCH (09:08)
[2024-03-04] MEDS: atenoloL 25 MG TAB PO SCH (09:09)
[2024-03-04 12:00] VITALS: BP 121/56; TEMP 97.9; O2SAT 98
[2024-03-04] MEDS ORDERED: MORPHINE 2 MG/ML 1ML VIAL IV PRN (14:35)
[2024-03-04] MEDS: MORPHINE 2 MG/ML 1ML VIAL IV PRN (15:21)
[2024-03-04] MEDS: VANCOMYCIN HCL 750 MG, VIAL MATE ADAPTER 1 EACH in D5W 250 ML IV ONE (16:02)
[2024-03-04] MEDS: VANCOMYCIN HCL 500 MG in D5W MINI-BAG PLUS 100 ML IV ONE (17:08)
[2024-03-04 19:53] VITALS: BP 114/54; TEMP 97.9; O2SAT 96
[2024-03-05 04:38] VITALS: BP 110/58; TEMP 97.7; O2SAT 96
[2024-03-05 06:14] LABS: HEMATOCRIT 35.4 % (42.0-52.0); HEMOGLOBIN 11.7 g/dl (13.5-17.5); MEAN CORPUSCULAR HEMOGLOBIN 32.2 pg (27.0-33.0); MEAN CORPUSCULAR HGB CONC 33.1 g/dl (32.0-36.5); MEAN CORPUSCULAR VOLUME 97.5 fl (80.0-96.0); PLATELET COUNT, AUTOMATED 228 10^3/uL (150-450); RED BLOOD COUNT 3.63 10^6/uL (4.30-6.10); WHITE BLOOD COUNT 6.6 10^3/uL (4.0-10.0)
[2024-03-05 06:22] LABS: BLOOD UREA NITROGEN 17 MG/DL (9-23); CARBON DIOXIDE LEVEL 29 MMOL/L (20-31); CHLORIDE LEVEL 106 MMOL/L (98-107); CREATININE FOR GFR 1.17 MG/DL (0.70-1.30); GLOMERULAR FILTRATION RATE > 60.0 (>56); GLUCOSE, FASTING 82 MG/DL (60-100); POTASSIUM SERUM 4.4 MMOL/L (3.5-5.1); SODIUM LEVEL 138 MMOL/L (136-145)
[2024-03-05 06:57] LABS: ATYPICAL LYMPH 6 % (0-5); BASOPHILS 1 % (0-1); EOSINOPHILS 3 % (0-3); LYMPHOCYTES 40 % (16-44); MONOCYTES 13 % (0-5); NEUTROPHILS 36 % (28-66)
[2024-03-05 06:58] LABS: PLATELET ESTIMATE NORMAL (NORMAL)
[2024-03-05 07:05] LABS: ERYTHROCYTE SEDIMENTATION RATE 76 mm/hr (0-20)
[2024-03-05] MEDS: VANCOMYCIN HCL 750 MG, VIAL MATE ADAPTER 1 EACH in D5W 250 ML IV SCH (08:36)
[2024-03-05] MEDS: VANCOMYCIN HCL 500 MG in D5W MINI-BAG PLUS 100 ML IV SCH (09:52)
[2024-03-05 12:46] VITALS: BP 113/60; TEMP 97.9; O2SAT 95
[2024-03-05 19:53] VITALS: BP 109/60; TEMP 97.9; O2SAT 99
[2024-03-06 03:57] VITALS: BP 108/62; TEMP 97.5; O2SAT 92
[2024-03-06 06:48] LABS: HEMATOCRIT 35.2 % (42.0-52.0); HEMOGLOBIN 11.7 g/dl (13.5-17.5); MEAN CORPUSCULAR HEMOGLOBIN 32.1 pg (27.0-33.0); MEAN CORPUSCULAR HGB CONC 33.2 g/dl (32.0-36.5); MEAN CORPUSCULAR VOLUME 96.4 fl (80.0-96.0); PLATELET COUNT, AUTOMATED 226 10^3/uL (150-450); RED BLOOD COUNT 3.65 10^6/uL (4.30-6.10); WHITE BLOOD COUNT 6.4 10^3/uL (4.0-10.0)
[2024-03-06 07:17] LABS: MAGNESIUM LEVEL 1.9 MG/DL (1.8-2.4)
[2024-03-06 07:48] LABS: BLOOD UREA NITROGEN 13 MG/DL (9-23); CALCIUM LEVEL 8.2 MG/DL (8.5-10.1); CARBON DIOXIDE LEVEL 28 MMOL/L (20-31); CHLORIDE LEVEL 109 MMOL/L (98-107); CREATININE FOR GFR 1.02 MG/DL (0.70-1.30); GLOMERULAR FILTRATION RATE > 60.0 (>56); GLUCOSE, FASTING 84 MG/DL (60-100); POTASSIUM SERUM 4.2 MMOL/L (3.5-5.1); SODIUM LEVEL 138 MMOL/L (136-145)
[2024-03-06 09:18] LABS: ERYTHROCYTE SEDIMENTATION RATE 69 mm/hr (0-20)
[2024-03-06 12:32] VITALS: BP 115/61; TEMP 97.9; O2SAT 96
[2024-03-06] MEDS ORDERED: CEFD300C PO (13:45)
[2024-03-06 19:46] VITALS: BP 115/60; TEMP 97.5; O2SAT 95
[2024-03-06] MEDS: CEFDINIR 300 MG CAP (OMNICEF) PO SCH (20:55)
[2024-03-07 04:00] VITALS: BP 120/62; TEMP 98.2; O2SAT 96
[2024-03-07 06:26] LABS: HEMATOCRIT 35.6 % (42.0-52.0); HEMOGLOBIN 11.9 g/dl (13.5-17.5); MEAN CORPUSCULAR HEMOGLOBIN 32.2 pg (27.0-33.0); MEAN CORPUSCULAR HGB CONC 33.4 g/dl (32.0-36.5); MEAN CORPUSCULAR VOLUME 96.2 fl (80.0-96.0); PLATELET COUNT, AUTOMATED 230 10^3/uL (150-450); WHITE BLOOD COUNT 7.1 10^3/uL (4.0-10.0)
[2024-03-07 06:52] LABS: BLOOD UREA NITROGEN 15 MG/DL (9-23); CALCIUM LEVEL 8.2 MG/DL (8.5-10.1); CARBON DIOXIDE LEVEL 28 MMOL/L (20-31); CHLORIDE LEVEL 107 MMOL/L (98-107); CREATININE FOR GFR 1.01 MG/DL (0.70-1.30); GLOMERULAR FILTRATION RATE > 60.0 (>56); GLUCOSE, FASTING 80 MG/DL (60-100); POTASSIUM SERUM 4.2 MMOL/L (3.5-5.1); SODIUM LEVEL 139 MMOL/L (136-145)
[2024-03-07 08:22] LABS: ERYTHROCYTE SEDIMENTATION RATE 67 mm/hr (0-20)
[2024-03-07 08:36] VITALS: BP 117/71
== END 2024-03-07 11:05 | DRG 623 ==
LOC: M ED 12:56 → EDBD 12:56 → M ED INP 17:25 → M MS5PR 20:52
PROVIDERS: ADMIT Student in an Organized Health Care Education/Training Program; ATTEND Internal Medicine Nephrology
PROC: 0JBR0ZZ Excision of Left Foot Subcutaneous Tissue and Fascia, Open Approach (ICD-10-PCS; principal; 2024-03-04)
DX: E11.69 Type 2 diabetes mellitus with other specified complication (principal); M86.8X7 Other osteomyelitis, ankle and foot; L03.116 Cellulitis of left lower limb; Z68.42 Body mass index [BMI] 45.0-49.9, adult; I25.10 Atherosclerotic heart disease of native coronary artery without angina pectoris; I48.91 Unspecified atrial fibrillation; I10 Essential (primary) hypertension; I69.311 Memory deficit following cerebral infarction; K21.9 Gastro-esophageal reflux disease without esophagitis; N17.9 Acute kidney failure, unspecified; E11.42 Type 2 diabetes mellitus with diabetic polyneuropathy; E11.621 Type 2 diabetes mellitus with foot ulcer; L08.9 Local infection of the skin and subcutaneous tissue, unspecified; E66.9 Obesity, unspecified; Z89.422 Acquired absence of other left toe(s); Z87.891 Personal history of nicotine dependence; Z79.01 Long term (current) use of anticoagulants; Z79.899 Other long term (current) drug therapy